=== PATIENT | female | born 1960 | race Caucasian/White ===

== ENCOUNTER → 2017-11-30 | Outpatient (CLI) | payer OTHER ==
--- NOTE | 2017-12-01 08:17 | CT ---
EXAMINATION TYPE: CT ChestAbdPelvis w con DATE OF EXAM: 11/30/2017 COMPARISON: CT abdomen pelvis November 16, 2014. HISTORY: Abnormal weight loss, nausea and constipation x3-[address] years[address] per order. [address] DLP: 407 mGycm. Automated Exposure Control for Dose Reduction was Utilized. CONTRAST: CT abdomen and pelvis is performed with oral but without IV contrast. CT scan of the thorax, abdomen and pelvis is then performed with oral and with IV Contrast, patient injected with 92ml mL of Isovue 300. FINDINGS: LUNGS: Moderate underlying emphysematous change is felt present. No suspicious parenchymal nodule or mass is identified. No worrisome consolidation is seen. Tracheobronchial tree is patent. No pleural e ffusion or pneumothorax is noted. MEDIASTINUM: There are no greater than 1 cm hilar or mediastinal lymph nodes. No cardiomegaly or pe ricardial effusion is seen. Coronary artery calcification is seen which is noted marker for coronary artery disease. There is fairly moderate eccentric plaque along course of descending aorta predomina ntly noncalcified. Suspected recess fluid anterior to origin of main pulmonary artery near axial imag e 26. OTHER: Dense fibroglandular tissue is noted in both breasts. LIVER/GB: No significant abnormality is appreciated. PANCREAS: No significant abnormality is seen. SPLEEN: No significant abnormality is seen. ADRENALS: Left adrenal gland is not well visualized but is not significantly changed from 2015 CT. KIDNEYS: Noncontrast images show central 3 mm calcification axial image 32 could reflect calculus fav or vascular etiology due to central position. There is symmetric cortical medullary uptake and excret ion from both kidneys without evidence of hydronephrosis bilaterally. BOWEL: The oral contrast reaches level of cecum. Patient has very little intra-abdominal fat making e valuation suboptimal. There is no suspicious small or large bowel dilatation. There is some eccentric soft tissue thickening distal rectum into anus seen best coronal image 47. Direct visualization advi sed to rule out mass or neoplasm at this level. The amount of fecal material is somewhat prominent in the colon. GENITAL ORGANS: Uterus is surgically absent or markedly atrophic in appearance. LYMPH NODES: No greater than 1cm abdominal or pelvic lymph nodes are appreciated. OSSEOUS STRUCTURES: Vacuum disc phenomenon L5-S1 level is present. Scoliosis in the thoracic spine is seen. There is moderate joint space loss and spurring in both hips. OTHER: There is fairly moderate plaque of the abdominal aorta extending into branch vessels where mod erate to severe plaque is seen involving iliac branch vessels. Significant stenosis is difficult to e xclude into both lower extremities. Correlate clinically. IMPRESSION: 1. Stable 3 mm calcified focus medially left kidney favored vascular. No new nephrolithiasis. No sig nificant finding seen to account for patient's symptoms of hematuria. 2. Overall nonobstructive bowel gas pattern. There is mild to moderate diffuse colonic fecal stasis n oted. Cannot exclude distal rectal mass. Correlation clinically with digital rectal exam advised. 3. Fairly severe plaque in the proximal external iliac arteries bilaterally. Significant stenosis can not be excluded. Correlate clinically for lower extremity peripheral arterial disease symptoms. 4. Moderate emphysematous change without suspicious acute pulmonary process.
--- NOTE | 2017-12-01 08:18 | CT ---
Please see same day CT CAP for complete details on this study.
== END ==
LOC: RADCTMAIN 16:57
PROVIDERS: ATTEND Internal Medicine
DX: R31.9 Hematuria, unspecified (principal); R63.4 Abnormal weight loss
CPT/HCPCS: 71260; 74176; 74177; Q9967

== ENCOUNTER 2018-08-11 17:26 | Inpatient (IN) | payer OTHER ==
[2018-08-11] MEDS ORDERED: HEPARIN SODIUM,PORCINE 5,000 UNIT/ML 1 ML VIAL IV PRN (17:55)
[2018-08-11] MEDS ORDERED: NALOXONE 0.4 MG/ML 1 ML VIAL IV PRN (17:56)
--- NOTE | 2018-08-11 17:56 | ED ---
General Adult HPI - General Chief complaint: Chest Pain Stated complaint: stemi Source: patient, EMS Mode of arrival: EMS Limitations: no limitations - History of Present Illness Initial comments: Dictation was produced using [employer] dictation software. please excuse any grammatical, word or spelling errors. Chief Complaint: 56-year-old female transferred from [facility] for elevated troponin concerns for ST segment elevation GA. History of Present Illness: Patient is a 57-year-old female she is a past medical history of hep C, chronic back pain and hypertension. Patient has been having 2-3 days of nausea and vomiting. She also had an episode of left scapular pain yesterday. She was seen at [facility]. She was diagnosed with UTI sepsis. During her workup patient had a troponin that was elevated to 24, white count of 20 V acidosis or 4 and some EKG findings. While at [facility] cardiology was contacted and requested patient be transferred to our facility. Patient was given antibiotics, started on heparin and given aspirin. Currently patient has no complaints at this time she states she feels a lot better after being seen at [facility] and given fluids. She denies chest pain or shoulder pain at this time. The ROS documented in this emergency department record has been reviewed and confirmed by me. Those systems with pertinent positive or negative responses have been documented in the HPI. All other systems are other negative and/or noncontributory. PHYSICAL EXAM: General Impression: Alert and oriented x3, not in acute distress, pale HEENT: Normocephalic atraumatic, extra-ocular movements intact, pupils equal and reactive to light bilaterally, dry mucous membranes Cardiovascular: Heart regular rate and rhythm, S1&S2 audible, no murmurs, rubs or gallops Chest: Lungs clear to auscultation bilaterally, no rhonchi, no wheeze, no rales Abdomen: Bowel sounds present, abdomen soft, non-tender, non-distended, no organomegaly Musculoskeletal: Pulses present and equal in all extremities, no peripheral edema Motor: no focal deficits noted Neurological: CN II-XII grossly intact, no focal motor or sensory deficits noted Skin: Intact with no visualized rashes Psych: Normal affect and mood ED course: 57-year-old female transferred for concerns of major adverse cardiac event. He knows with UTI sepsis. She was transferred here for elevated troponin and EKG changes. All signs upon arrival are within acceptable limits. Patient is otherwise well-appearing. Patient denies any ACS-type symptoms. EKG was performed immediately upon arrival. There was findings to suggest ST segment elevation GA with elevated ST segments in V2 V3 with T-wave inversions in the high lateral leads. These appear to be new compared to previous EKG. Patient case and EKG was discussed immediately with Dr. Brody who received signout from Dr. Farris of cardiology who spoke with the initial ER doctor from [facility].. He stated that given that patient is asymptomatic at this time no plans for emergent cardiac catheterization. He requested that code STEMI not be activated at this time.. They do however requested patient be disposition to the intensive care unit. Discussed patient case with Dr. Loyola who is willing to accept patient to intensive care unit. Patient be admitted to Dr. Cuba. Heparin continued. Patient had received aspirin from transferring facility. pending repeat troponin EKG interpretation: Ventricular rate 82, normal sinus rhythm, DE interval 126, QS 86, QTC 481. No DE prolongation, no QTC prolongation. T-wave inversions in the high lateral leads. ST segment elevation in V2 V3, T-wave inversions in lateral precordial leads V5 and 6 - Related Data Home Medications Medication Instructions Recorded Confirmed Hydrochlorothiazide [Hydrodiuril] 50 mg PO DAILY 01/23/14 01/09/15 Metoprolol Tartrate [Lopressor] 25 mg PO DAILY 01/23/14 01/09/15 Albuterol(Unknown Dose) 2 INHALATION BID PRN 01/05/15 01/09/15 Atorvastatin [Lipitor] 10 mg PO MOWEFR 01/05/15 01/09/15 Cholecalciferol [Vitamin D3] 2,000 units PO BID 01/05/15 01/09/15 Oxymetazoline 0.05% Nasl [place] 1 spray INHALATION Q12H 01/05/15 01/09/15 [Afrin 0.05% Nasal [place]] Prochlorperazine [Compazine] 10 mg PO Q8HR PRN 01/05/15 01/09/15 Allergies Allergy/AdvReac Type Severity Reaction Status Date / Time No Known Allergies Allergy Verified 08/11/18 18:00 Review of Systems ROS Statement: Those systems with pertinent positive or pertinent negative responses have been documented in the HPI. ROS Other: All systems not noted in ROS Statement are negative. Past Medical History Past Medical History: Hypertension Additional Past Medical History / Comment(s): Hepatitis C, chronic back pain History of Any Multi-Drug Resistant Organisms: None Reported Past Surgical History: Hysterectomy, Tonsillectomy Additional Past Surgical History / Comment(s): liver biopsy Past Anesthesia/Blood Transfusion Reactions: No Reported Reaction Past Psychological History: No Psychological Hx Reported Smoking Status: Current every day smoker - Past Family History Father Family Medical History: Deep Vein Thrombosis (DVT) General Exam Limitations: no limitations Course Vital Signs 08/11/18 17:29 Temperature 98.7 F Pulse Rate 78 Respiratory 16 Rate Blood Pressure 119/88 O2 Sat by Pulse 97 Oximetry Disposition Clinical Impression: Sepsis secondary to UTI, Elevated troponin, EKG abnormalities Disposition: ADMITTED IP TO THIS HOSP Condition: Critical Referrals: Balaji Mitchell MD [Primary Care Provider] - 1-2 days Decision Time: 18:19
[2018-08-11] MEDS ORDERED: SODIUM CHLORIDE 0.9% 1,000 ML IV SCH ×2 (18:00→20:15)
[2018-08-11] MEDS: HEPARIN SOD,PORK IN 0.45% NACL 25,000 UNIT in 0.45% NACL 1 250ML.BAG IV SCH (18:24)
[2018-08-11] MEDS ORDERED: MAGNESIUM SULFATE-D5W PMX 1 GM in DEXTROSE/WATER 1 100ML.BAG IVPB ONE (18:36)
[2018-08-11] MEDS ORDERED: ATORVASTATIN 80 MG TAB PO STA (18:37)
[2018-08-11] MEDS ORDERED: ASPIRIN 325 MG TAB PO STA (18:37)
--- NOTE | 2018-08-11 18:50 | P.CRDCN ---
History of Present Illness History of present illness: This is Dr. Brody dictating a consult on this patient The patient was interviewed and examined by me Patient transferred from [facility] did initially Dr. Farris was notified who called me. Later was called by the ER physician from [facility] The patient's name in the [facility] records state Ana Laura Chong IMPRESSION / ASSESSMENT: Twelve-lead ECG and symptoms consistent with anterior lateral large myocardial injury, delayed presentation of greater than 24 hours Abnormal troponins with a downward trend, 24 followed by 17 Hypertension History of hepatitis C Past history of alcohol use but stopped drinking completely Current smoker Elevated white count possibly UTI PLAN: Aspirin atorvastatin IV magnesium I discussed this with Dr. Cowan it appears that she may have had a subacute myocardial infarction that began yesterday Coronary angiography today and further management accordingly Discussed with the patient and her family HPI Patient presented to the emergency room at [facility]. The ER physician there spoke to Dr. Farris and informed him of an abnormal troponin and abnormal ECG with ST elevation Patient was transferred to [facility] I was called by the ER physician here and she arrived Upon direct questioning the patient has not been feeling well since yesterday. Around 1:00 yesterday afternoon she started experiencing nausea and discomfort which is epigastric in nature and then felt very very weak The weakness was progressive and therefore she came in to the hospital Her urine smelled really bad She did have some fever but no chills She completely denied any chest discomfort she had epigastric symptoms that started yesterday ROS: + fever , no chills or rigors, no cough, phlegm or expectoration, no nausea, vomiting or diarrhea, no hematuria, + dysuria, no musculoskeletal complaints, no strokes or seizures, no skin lesions. EXAMINATION: Blood pressure 123/92 mmHg pulse rate in the 70s afebrile Breath sounds are clear no rhonchi no crackles Heart sounds. Normal no murmurs or gallops or rub Extremities warm no edema Patient emaciated Afebrile at this time REVIEW OF LABS, ECG & MEDICAL DATA Twelve-lead ECG from [facility] show sinus mechanism normal ID left anterior fascicular block and ST elevation in V1 through V4, ST elevation with T-wave inversions V5 and V6 lead 1 and aVL T-wave inversions in V5 Elevated troponin at [facility] of about 24 Repeat troponin 17 here in this hospital Magnesium 1.4 White count 20,000 Past Medical History Past Medical History: Hypertension Additional Past Medical History / Comment(s): Hepatitis C, chronic back pain History of Any Multi-Drug Resistant Organisms: None Reported Past Surgical History: Hysterectomy, Tonsillectomy Additional Past Surgical History / Comment(s): liver biopsy Past Anesthesia/Blood Transfusion Reactions: No Reported Reaction Past Psychological History: No Psychological Hx Reported Smoking Status: Current every day smoker - Past Family History Father Family Medical History: Deep Vein Thrombosis (DVT) Medications and Allergies Home Medications Medication Instructions Recorded Confirmed Type Gabapentin [Neurontin] 300 mg PO TID 08/11/18 08/11/18 History Sertraline [Zoloft] 100 mg PO DAILY 08/11/18 08/11/18 History oxyCODONE-APAP 10-325MG [Percocet 1 tab PO QID 08/11/18 08/11/18 History 10-325 mg] Allergies Allergy/AdvReac Type Severity Reaction Status Date / Time No Known Allergies Allergy Verified 08/11/18 18:00 Physical Exam Vitals: Vital Signs Temp Pulse Resp BP Pulse Ox 08/11/18 18:46 98.9 F 81 16 115/84 98 08/11/18 18:00 80 15 123/92 97 08/11/18 17:29 98.7 F 78 16 119/88 97 Intake and Output 08/11/18 08/11/18 08/11/18 06:59 14:59 22:59 Other: Weight 38.555 kg Results Cardiac Enzymes 08/11/18 Range/Units 17:50 Troponin I 17.200 H* (0.000-0.034) ng/mL Current Medications Generic Name Dose Route Start Last Admin Trade Name Freq PRN Reason Stop Dose Admin Acetaminophen 650 mg 08/11/18 17:56 Tylenol Tab PO Q4HR PRN Fever and/or Mild Pain Heparin Sodium (Porcine) 0 unit 08/11/18 17:55 Heparin IV PER PROTOCOL PRN Low PTT Protocol Heparin Sodium/Sodium Chloride 250 mls @ 4.627 mls/hr 08/11/18 18:00 08/11/18 18:24 25,000 unit/ Sodium Chloride IV 12 units/kg/hr .Q24H ELISE 4.627 mls/hr Administration Protocol 12 UNITS/KG/HR Sodium Chloride 1,000 mls @ 100 mls/hr 08/11/18 18:00 08/11/18 18:24 Saline 0.9% IV 100 mls/hr .Q10H LEISE Administration Magnesium Sulfate/Dextrose 1 100 mls @ 100 mls/hr 08/11/18 18:36 08/11/18 18:44 gm/ IV Solution IVPB 08/11/18 19:35 100 mls/hr ONCE ONE Administration Naloxone HCl 0.2 mg 08/11/18 17:56 Narcan IV Q2M PRN Opioid Reversal Pantoprazole Sodium 40 mg 08/12/18 09:00 Protonix IV DAILY ELISE Intake and Output 08/11/18 08/11/18 08/11/18 06:59 14:59 22:59 Other: Weight 38.555 kg Patient Weight 08/12/18 06:59 Weight 38.555 kg
[2018-08-11] MEDS ORDERED: LIDOCAINE 1% INJ 10MG/ML (20 ML MDV) ONE (19:05)
[2018-08-11] MEDS ORDERED: fentaNYL (PF) 50 MCG/ML 2 ML AMP ONE (19:27)
[2018-08-11] MEDS ORDERED: fentaNYL (PF) 50 MCG/ML 2 ML AMP IV ONE (19:30)
[2018-08-11] MEDS: MIDAZOLAM (PF) 2 MG/2 ML VIAL IV ONE ×2 (19:33→19:36)
[2018-08-11] MEDS ORDERED: LIDOCAINE 1% INJ 10MG/ML (20 ML MDV) SQ ONE (19:33)
[2018-08-11] MEDS ORDERED: IV FLUID CONTINUATION 800 ML IV ONE (19:37)
[2018-08-11] MEDS ORDERED: BIVALIRUDIN IV ONE (19:47)
[2018-08-11] MEDS ORDERED: BIVALIRUDIN BOLUS 250 MG/50 ML IV ONE (19:47)
[2018-08-11] MEDS ORDERED: SODIUM CHLORIDE 0.9% IV ONE (19:47)
[2018-08-11] MEDS ORDERED: HYDROmorphone 2 MG/ML 1 ML SYRINGE IV ONE (19:47)
[2018-08-11] MEDS ORDERED: niCARdipine 25 MG/10 ML VIAL ONE (19:49)
[2018-08-11] MEDS ORDERED: NITROGLYCERIN 1000MCG/10ML SYRINGE INTRACORON ONE (19:51)
[2018-08-11] MEDS ORDERED: ONDANSETRON 4 MG/2 ML VIAL ONE (19:53)
[2018-08-11] MEDS ORDERED: CLOPIDOGREL 75 MG TAB ONE (19:53)
[2018-08-11] MEDS ORDERED: CLOPIDOGREL 75 MG TAB PO ONE (19:57)
[2018-08-11] MEDS ORDERED: IOPAMIDOL-370 100ML BTL INJ ONE (19:58)
[2018-08-11] MEDS ORDERED: NITROGLYCERIN SL TABS 0.4 MG TAB SUBLINGUAL PRN (20:07)
[2018-08-11] MEDS ORDERED: ATROPINE SULFATE 0.1 MG/ML 10ML SYRINGE IV PRN (20:07)
[2018-08-11] MEDS ORDERED: RX INFO: IV CONTRAST WAS GIVEN 1 EACH MISC MISCELLANE PRN (20:07)
[2018-08-11] MEDS ORDERED: MAG HYDROX/AL HYDROX/SIMETH 30 ML CUP PO PRN (20:07)
--- NOTE | 2018-08-11 20:38 | LTR ---
DATE OF SERVICE: August 11, [address] Mitchell: Ms. Ana Laura Morgan was admitted to [facility] with acute non ST elevation myocardial infarction and underwent a heart catheterization and was found to have critical disease involving the right coronary artery which was opened and stented with good angiographic results. Thank you for allowing us to participate in her care and please do not hesitate to call if you have any questions or concerns. Sincerely, LELIA / ELANAN: [phone] /
--- NOTE | 2018-08-11 20:44 | CC ---
CARDIAC CATHETERIZATION REPORT DATE OF SERVICE: August 11, 2018 PERFORMING PHYSICIAN: Luciano Beck MD, social work assistant. PROCEDURE PERFORMED: 1. Selective right and left coronary angiogram. 2. Left heart catheterization. 3. Successful stenting of the mid right coronary artery using 2.75 x 28 mm Xience drug- eluting stent with an excellent angiographic results and reduction of stenosis from 99% to 0%. INDICATION: This is a 57-year-old female patient who is a smoker who presented initially to [facility] with chest discomfort. She was found to have abnormal troponin. Subsequently, she was transferred to [facility] Emergency Room where she was seen and evaluated by Dr. Brody who recommended proceeding with coronary angiogram on the patient. APPROACH: Right common femoral artery. COMPLICATION: None. LEVEL OF SEDATION: Moderate with sedation length of 29 minutes. PROCEDURE DESCRIPTION: After obtaining an informed consent, the patient was brought to cardiac labeling specialist. The right common femoral artery was cannulated using micropuncture technique and a micropuncture wire passed easily. Then I placed a 6-Turkmen sheath in the right common femoral artery. After that I did selective right and left coronary angiogram using JR 35 and JL3.5 catheters. After that I did intervene in the coronary artery. Please see a separate paragraph for that. Then I did left heart catheterization using 6-Turkmen pigtail catheter. The procedure was completed without any complication. SELECTIVE CORONARY ANGIOGRAM: 1. The right coronary artery is a medium caliber vessel. It is a dominant vessel. The mid RCA has a long tubular lesion appeared to be in the range of 99%. This is with a plaque rupture and thrombus formation. The distal RCA appeared to have diffuse intermediate disease. 2. The left main is a long left main, appeared to be angiographically normal. It bifurcates into left circumflex and left anterior descending artery. 3. The left circumflex is a large caliber vessel. It is a nondominant vessel. The proximal circumflex appeared to be normal and gives rise into the first OM branch which seems to be normal. The mid circumflex appeared to have a lesion in the range of 70%. This is involving OM 2. But the OM2 becomes small to medium caliber vessel. 4. The LAD: The proximal LAD shows appeared to have mild disease only. The mid LAD appeared to have mild disease only as well and gives rise into first diagonal branch which seems to have seems to have mild disease only. The LAD distally appeared to have mild disease only as well. 5. HEMODYNAMICS: The left ventricular end-diastolic pressure was 20 mmHg without significant gradient across the aortic valve. PCI OF THE RCA: Anticoagulation was initiated using Angiomax. Subsequently I did engage the right coronary artery using JR 3.5 guide. The RCA was wired using a whisper wire at the wire was positioned in the PDA branch of the RCA. After that I did balloon angioplasty using 2.5 x 12 mm balloon before I deployed 2.75 x 28 mm Xience drug-eluting stent where the stent was positioned under fluoroscopy guidance and deployed under its nominal pressure. The following angiogram showed good angiographic results and the procedure was completed without any complication. CONCLUSION: 1. Critical disease involving the mid RCA secondary to plaque rupture and thrombus formation. 2. Severe disease involving OM2 of left circumflex. The OM2 is a medium caliber vessel only and seems to be smaller than 2 mm. 3. Mild disease involving the left anterior descending artery. 4. Severe peripheral arterial disease. POSTPROCEDURE MANAGEMENT: 1. Dual anti-platelet therapy. 2. Risk factor modifications. 3. An echocardiogram with Doppler. 4. Smoking cessation. 5. Follow up with the patient. MMODL / IJN: [id number] /
[2018-08-11] MEDS: ACETAMINOPHEN TAB 325 MG TAB PO PRN (22:05)
[2018-08-11] MEDS: ATORVASTATIN 80 MG TAB PO SCH (22:26)
[2018-08-11] MEDS: NICOTINE 21MG/24HR PATCH TRANSDERM SCH (22:26)
[2018-08-11] MEDS: METOPROLOL TARTRATE 25 MG TAB PO SCH (22:27)
[2018-08-11] MEDS: GABAPENTIN 300 MG CAP PO SCH (22:27)
[2018-08-11] MEDS: oxyCODONE-APAP 10-325MG 1 EACH TAB PO SCH (22:27)
[2018-08-12] MEDS: ZOLPIDEM 5 MG TAB PO PRN ×2 (00:09→21:06)
[2018-08-12] MEDS: ACETAMINOPHEN TAB 325 MG TAB PO PRN (05:30)
[2018-08-12] MEDS: SERTRALINE 100 MG TAB PO SCH (08:47)
[2018-08-12] MEDS: oxyCODONE-APAP 10-325MG 1 EACH TAB PO SCH ×4 (08:47→21:06)
[2018-08-12] MEDS: GABAPENTIN 300 MG CAP PO SCH ×3 (08:47→21:06)
[2018-08-12] MEDS: ASPIRIN 325 MG TAB PO SCH (08:47)
[2018-08-12] MEDS: METOPROLOL TARTRATE 25 MG TAB PO SCH ×2 (08:47→21:06)
[2018-08-12] MEDS: NICOTINE 21MG/24HR PATCH TRANSDERM SCH (08:47)
[2018-08-12] MEDS ORDERED: PANTOPRAZOLE 40 MG/10 ML VIAL IV SCH (09:00)
--- NOTE | 2018-08-12 11:01 | ECHOF ---
Referral Reason:nstemi MEASUREMENTS -------- HEIGHT: 157.5 cm WEIGHT: 38.1 kg BP: IVSd: 1.3 cm (0.6 - 1.1) LVIDd: 3.9 cm (3.9 - 5.3) LVPWd: 1.2 cm (0.6 - 1.1) IVSs: 1.2 cm LVIDs: 3.3 cm LVPWs: 1.3 cm Ao Diam: 3.0 cm (2.0 - 3.7) AV Cusp: 1.5 cm (1.5 - 2.6) LA Diam: 3.7 cm (2.7 - 3.8) MV EXCURSION: 14.967 mm (> 18.000) MV EF SLOPE: 56 mm/s (70 - 150) EPSS: 0.4 cm MV E Ignacio: 0.63 m/s MV DecT: 198 ms MV A Ignacio: 0.65 m/s MV E/A Ratio: 0.96 RAP: 5.00 mmHg RVSP: 26.52 mmHg FINDINGS -------- Sinus rhythm. This was a technically good study. The left ventricular size is normal. There is moderate global hypokinesis of LV . Overall left ve ntricular systolic function is severely impaired with, an EF < 20%. Anterseptal Hypokinesis Later al hypokinesis Septal Hypokinesis [place] Hypokinesis. The right ventricle is normal in size. The left atrial size is normal. The right atrial size is normal. Interatrial and interventricular septum intact. The aortic valve is trileaflet, and appears structurally normal. No aortic stenosis or regurgitation. Mild mitral annular calcification present. Mild mitral regurgitation is present. Mild tricuspid regurgitation present. There is no evidence of pulmonary hypertension. The right v entricular systolic pressure, as measured by Doppler, is 26.52mmHg. There is no pulmonic regurgitation present. The aortic root size is normal. Normal inferior vena cava with normal inspiratory collapse consistent with estimated right atrial pre ssure of 5 mmHg. There is no pericardial effusion. CONCLUSIONS -------- 1. The left ventricular size is normal. 2. There is moderate global hypokinesis of LV . 3. Overall left ventricular systolic function is severely impaired with, an EF < 20%. 4. Anterseptal Hypokinesis 5. Lateral hypokinesis 6. Septal Hypokinesis 7. [place] Hypokinesis. 8. The right ventricle is normal in size. 9. The left atrial size is normal. 10. The right atrial size is normal. 11. Interatrial and interventricular septum intact. 12. The aortic valve is trileaflet, and appears structurally normal. No aortic stenosis or regurgitat ion. 13. Mild mitral annular calcification present. 14. Mild mitral regurgitation is present. 15. Mild tricuspid regurgitation present. 16. There is no evidence of pulmonary hypertension. 17. The right ventricular systolic pressure, as measured by Doppler, is 26.52mmHg. 18. There is no pulmonic regurgitation present. 19. The aortic root size is normal. 20. Normal inferior vena cava with normal inspiratory collapse consistent with estimated right atrial pressure of 5 mmHg. 21. There is no pericardial effusion. CUSTOMER SUCCESS MANAGER: Ashley Moreau RDCS
[2018-08-12 13:44] VITALS: BMI 15.5
[2018-08-12] MEDS: HEPARIN SOD,PORK IN 0.45% NACL 25,000 UNIT in 0.45% NACL 1 250ML.BAG IV SCH (14:19)
--- NOTE | 2018-08-12 15:05 | P.PN ---
Subjective Progress Note Date: 08/12/18 This is a pleasant 57-year-old female who presented to the [facility] mainly with symptoms of nausea and vomiting. She also was very weak. She was experiencing some fever. She apparently was so weak that she was unable to get up out of the bathtub, her significant other had to assist her. An EKG was performed on arrival there which showed some ST-T wave changes in the anterior leads, her troponin came back to be significantly abnormal and for this reason a call was made to cardiology. Patient then was transferred here to [facility] in seen in consultation by Dr. Brody. She was advised to undergo cardiac catheterization. Cardiac catheterization showed significant 99% stenosi s of the right coronary artery, patient underwent subsequent stenting of the right coronary artery. Her EKG performed this morning showed a normal sinus rhythm with significant ST-T wave changes noted in the anterior leads. Echocardiogram with Doppler study was performed which revealed an ejection fraction of less than 20%, anterior septal, lateral, septal, and apical hypokinesia noted, clinical picture is suggestive of possible stress cardiomyopathy on top of the fact that the patient had difficulty in stenosis of the right coronary artery. The patient is also found to have a significant u rinary tract infection with associated sepsis. Blood pressure this morning 91/60 with a heart rate in the 50s, 95% on room air. Troponin this afternoon 17.2. Patient is currently on aspirin 325 mg, Lipitor 80 mg, Plavix 75 mg, metoprolol 25 mg twice a day, if the blood pressure tolerates we will add an RHONDA inhibitor and Aldactone tomorrow. Objective - Vital Signs Vital signs: Vital Signs Temp 98.4 F 08/12/18 11:55 Pulse 57 L 08/12/18 11:55 Resp 16 08/12/18 11:55 BP 91/60 08/12/18 11:55 Pulse Ox 95 08/12/18 11:55 Intake & Output 08/11/18 08/12/18 08/12/18 18:59 06:59 18:59 Intake Total 106 600 Balance 106 600 Weight 38.555 kg 38.5 kg 38.5 kg Intake: IV 106 400 Sodium Chloride 0.9% 1, 400 000 ml @ 75 mls/hr IV . [id number] ELISE Rx#:[id number] Oral 200 Other: # Voids 1 - Exam PHYSICAL EXAMINATION: GENERAL: 87-year-old female in no acute distress at the time of my examination HEENT: Head is atraumatic, normocephalic. Pupils equal, round. Sclera anicteric. Conjunctiva are clear. Mucous membranes of the mouth are moist. Neck is supple. There is no elevated jugular venous pressure.No carotid bruit is heard. HEART EXAMINATION: Heart S1, S2 normal. No murmur or gallop heard. CHEST EXAMINATION: Lungs are clear to auscultation and precussion. No chest wall tenderness is noted on palpation or with deep breathing. ABDOMEN: Soft, nontender. Bowel sounds are heard. No organomegaly noted. EXTREMITIES: 2+ peripheral pulses with no evidence of peripheral edema and no calf tenderness noted. Right groin soft, NEUROLOGIC patient is awake, alert and oriented 3 . . - Labs CBC & Chem 7: 08/12/18 05:40 Labs: Abnormal Lab Results - Last 24 Hours (Table) 08/11/18 Range/Units 17:50 Troponin I 17.200 H* (0.000-0.034) ng/mL Assessment and Plan Plan: Assessment and plan #1 non-ST elevation myocardial infarction, status post angioplasty and stenting of the RCA. EKG shows normal sinus rhythm with anterior lateral ST-T wave changes, echo shows an ejection fraction of 20%, clinical picture suggestive of possible stress cardiomyopathy on top of the fact the patient significant RCA blockage #2 history of hepatitis C #3 hypertension #4 UTI and sepsis #5 hyperlipidemia #6 nicotine dependence #7 marijuana use Plan We will continue current medications. If the blood pressure tolerates we will initiate RHONDA inhibitor and Aldactone. Continue to monitor for 48-72 hours. DNP note has been reviewed, I agree with a documented findings and plan of care. Patient was seen and examined.
--- NOTE | 2018-08-12 16:21 | HP ---
HISTORY AND PHYSICAL DATE OF ADMISSION: August 11, 2018 DATE OF SERVICE: August 12, 2018 PRESENTING COMPLAINT: Not feeling well. HISTORY OF PRESENTING COMPLAINT: This is a pleasant 57-year-old patient of Dr. Balaji Mitchell. Chronic stable medical conditions include hypertension, hepatitis C that was treated, osteoarthritis of multiple joints, chronic low back pain from L5 vertebra missing, COPD. The patient is a smoker. The patient initially presented to [facility]. There was vomiting, weakness, malodorous urine, chills. The patient has found to have infected appearing urine. The patient is also found to have ST-elevation in the anterior leads and patient was sent down to [facility]. The patient was complaining of some back pain, between the shoulder blades and the patient had been short of breath and perspiring she stated. The patient was then taken to the cardiac [facility]ing lab[facility] and angioplasty stenting to the RCA was carried out by Dr. Beck. When I saw the patient this afternoon, the patient's symptoms are controlled. Feeling much better. REVIEW OF SYSTEMS: CONSTITUTIONAL: Tired. HEENT None. RESPIRATORY as above. CARDIOVASCULAR as above. GASTROINTESTINAL as above. GENITOURINARY none. MUSCULOSKELETAL: Arthritic pain in many joints. DERMATOLOGICAL, HEMATOLOGIC, LYMPHATIC: none. PSYCHIATRY none. NEUROLOGICAL none. PAST MEDICAL HISTORY: Hypertension, hepatitis C that was treated, back pain from L5 vertebra missing, COPD. PAST SURGICAL HISTORY: Hysterectomy, tonsillectomy and liver biopsy. SOCIAL HISTORY: Smokes a pack a day for many years. Lives with a boyfriend. Alcohol rarely. FAMILY HISTORY: DVT. HOME MEDICATIONS: 1. Percocet 10 1 tab q.i.d. 2. Zoloft 100 mg p.o. daily. 3. Neurontin 300 mg t.i.d. ALLERGIES: None. PHYSICAL EXAMINATION: VITAL SIGNS: Vital signs on presentation, temperature 98.7, pulse 72, respiration 16, blood pressure 109/88, pulse ox 97% on room air. GENERAL APPEARANCE: Thin built. BMI 15.5. Loss of muscle mass. EYES: Pupils are equal. Conjunctivae normal. HEENT: External appearance of nose and ears normal. Oral cavity normal. NECK: JVD not raised. Mass not palpable. RESPIRATORY: Effort increased. LUNGS: Diminished breath sounds. Prolonged wheezing. CARDIOVASCULAR: First and second sounds normal. No edema. ABDOMEN: Soft, nontender. Liver and spleen not palpable. LYMPHATICS: No lymph nodes palpable in the neck and axilla. PSYCHIATRY: Alert and oriented x3. Mood is slightly anxious-appearing. NEUROLOGICAL: Pupils equal. Cranial nerves grossly intact. Power and sensation grossly intact. MUSCULOSKELETAL: Evidence of osteoarthritis especially hands and knees. INVESTIGATIONS: EKG from [facility] shows ST elevation in the anterior leads and subsequent showed flipped T-waves. Troponin was 24. Troponin here 17.2, BUN is 14, creatinine 1.3, potassium 3.4. White count was 20.9, hemoglobin 18.1, platelets 292,000. AST 86, ALT 21, albumin 3.6. These labs are from [facility]. ASSESSMENT: 1. Acute ST-elevation myocardial infarction of more than more than 24 hours duration. Symptoms started apparently like 2 days ago. 2. Chronic obstructive pulmonary disease in a current smoker. 3. Chronic nicotine dependence, patient is a cigarette smoker. 4. Essential hypertension. 5. Primary osteoarthritis multiple joints. 6. Acute urinary tract infection with cystitis. PLAN: Patient is status post intervention of the RCA. Currently, she is on aspirin, Lipitor, Plavix. We will start the patient on IV ceftriaxone. Send off a UA. The patient already has a nicotine patch. Repeat labs. Follow with Cardiology. Copy to Dr. Balaji Mitchell. MMRAMÓNL / ELANAN: [id number] /
[2018-08-12] MEDS: ATORVASTATIN 80 MG TAB PO SCH (21:07)
[2018-08-12] MEDS: CLOPIDOGREL 75 MG TAB PO SCH (21:07)
[2018-08-13 00:57] VITALS: RESP 18
[2018-08-13] MEDS: PANTOPRAZOLE 40 MG TABLET PO SCH (05:33)
[2018-08-13 07:06] LABS: Basophils % (A) 1 %; Eosinophils # (A) 0.4 k/uL (0-0.7); Eosinophils % (A) 4 %; HCT 39.4 % (34.0-46.0); HGB 12.8 gm/dL (11.4-16.0); Lymphocytes # (A) 2.4 k/uL (1.0-4.8); Lymphocytes % (A) 25 %; MCH 29.5 pg (25.0-35.0); MCHC 32.5 g/dL (31.0-37.0); MCV 90.8 fL (80.0-100.0); Mean Platelet Volume 7.1; Monocytes # (A) 0.5 k/uL (0-1.0); Monocytes % (A) 6 %; Neutrophils % (A) 64 %; Platelet Count 223 k/uL (150-450); RBC 4.34 m/uL (3.80-5.40); RDW 14.1 % (11.5-15.5); WBC 9.5 k/uL (3.8-10.6)
[2018-08-13 07:16] LABS: ALT 20 U/L (9-52); AST 27 U/L (14-36); Alkaline Phosphatase 41 U/L (38-126); Anion Gap 2 mmol/L; Blood Urea Nitrogen 13 mg/dL (7-17); Calcium 8.7 mg/dL (8.4-10.2); Carbon Dioxide 30 mmol/L (22-30); Chloride 106 mmol/L (98-107); Glucose 86 mg/dL (74-99); Potassium 4.2 mmol/L (3.5-5.1); Sodium 138 mmol/L (137-145); Total Bilirubin 0.2 mg/dL (0.2-1.3)
[2018-08-13] MEDS: SERTRALINE 100 MG TAB PO SCH (09:02)
[2018-08-13] MEDS: CLOPIDOGREL 75 MG TAB PO SCH (09:02)
[2018-08-13] MEDS: ASPIRIN 325 MG TAB PO SCH (09:02)
[2018-08-13] MEDS: GABAPENTIN 300 MG CAP PO SCH ×3 (09:02→21:15)
[2018-08-13] MEDS: oxyCODONE-APAP 10-325MG 1 EACH TAB PO SCH ×4 (09:03→21:15)
[2018-08-13] MEDS: METOPROLOL TARTRATE 25 MG TAB PO SCH ×2 (09:03→21:16)
[2018-08-13] MEDS: NICOTINE 21MG/24HR PATCH TRANSDERM SCH (09:03)
[2018-08-13] MEDS ORDERED: LISINOPRIL 5 MG TAB PO SCH (11:15)
--- NOTE | 2018-08-13 11:59 | PN ---
PROGRESS NOTE Ana Laura is a 57-year-old lady who was admitted to hospital with myocardial infarction, underwent cardiac catheterization and angioplasty of coquille right coronary artery. She is doing well clinically and is free of symptoms. An echocardiogram showed severe LV dysfunction with an ejection fraction of 20%. Labs show a hemoglobin of 12.8, creatinine is 0.8, potassium is 4.2. Patient is currently on aspirin, Lipitor, Plavix, Lopressor 25 b.i.d. PHYSICAL EXAM: Comfortable at rest. Vital signs are stable. There is no jugular venous distention. Carotid upstroke is normal. There is no bruit. Chest exam reveals good air entry bilaterally. Heart exam reveals first and second heart sounds. No gallop. Exam of extremities did not reveal edema. Peripheral pulses are felt. ASSESSMENT: 1. Coronary artery disease, status post inferior wall myocardial infarction. 2. Ischemic cardiomyopathy with severe LV dysfunction. Her LV systolic dysfunction is consistent more with a takotsubo syndrome but will treat her with aggressive medical therapy. I will add an RHONDA inhibitor to what she is on. Hopefully home tomorrow. MMODL / IJN: [id number] /
[2018-08-13 16:24] LABS: Amorphous Sediment,Urine Rare /hpf; Appearance,Urine Clear (Clear); Bilirubin,Urine Negative (Negative); Blood,Urine Trace (Negative); Color,Urine Light Yellow; Glucose,Urine (UA) Negative (Negative); Ketones,Urine Negative (Negative); Leukocyte Esterase,Urine Negative (Negative); Nitrite,Urine Negative (Negative); PH, Urine 6.5 (5.0-8.0); Protein,Urine Trace (Negative); RBC,Urine 3 /hpf (0-5); Specific Gravity,Urine 1.009 (1.001-1.035); Squamous Epithelial Cell,Urine 1 /hpf (0-4); Urobilinogen,Urine <2.0 mg/dL (<2.0)
--- NOTE | 2018-08-13 16:26 | PN ---
PROGRESS NOTE DATE OF SERVICE: 08/13/2018 PRESENTING COMPLAINT: Acute SD. INTERVAL HISTORY: This patient presented with acute ST-elevation myocardial infarction. Also there is some view about takotsubo syndrome. She had successful angioplasty and stenting. Patient's appetite is picking up. Breathing is stable. Just feels a little bit tired. Has family visiting her. Has been out of bed, walking. REVIEW OF SYSTEMS: Done for constitutional, cardiovascular, GI, pulmonary; relevant findings as above. CURRENT MEDICATIONS: Reviewed. PHYSICAL EXAMINATION: Temperature 97.5, pulse 69, respiration 18, blood pressure 119/62, pulse ox 95% on room air. GENERAL APPEARANCE: Sitting up. Awake. EYES: Pupils equal. Conjunctivae normal. NECK: JVD not raised. Mass not palpable. RESPIRATORY: Effort normal. LUNGS: Diminished breath sounds. Prolonged expiration. CARDIOVASCULAR: First and second sounds normal. No edema. ABDOMEN: Soft, non-tender. Liver and spleen not palpable. PSYCHIATRY: Alert and oriented x3. Mood and affect normal. INVESTIGATIONS: White count 9.5, hemoglobin 12.8. Potassium 4.2. BUN and creatinine normal. ASSESSMENT: 1. Acute ST-elevation myocardial infarction of more than 24 hours' duration upon presentation. 2. Chronic obstructive pulmonary disease in a current smoker. 3. Chronic nicotine dependence. Patient is a cigarette smoker. 4. Essential hypertension. 5. Primary osteoarthritis in multiple joints. 6. Acute urinary tract infection with cystitis. UA was ordered yesterday. 7. Ischemic cardiomyopathy with ejection fraction of less than 20%. PLAN: Continue current medication and treatment plan. The patient is on aspirin, Lipitor, IV ceftriaxone, Plavix, Zestril, Zoloft. Care was discussed with the patient. Will add a small dose of Aldactone. Follow with Cardiology. MMODL / IJN: [id number] /
[2018-08-13] MEDS: ATORVASTATIN 80 MG TAB PO SCH (21:15)
[2018-08-14] MEDS: ZOLPIDEM 5 MG TAB PO PRN (02:13)
[2018-08-14] MEDS: PANTOPRAZOLE 40 MG TABLET PO SCH (06:01)
[2018-08-14] MEDS: ASPIRIN 325 MG TAB PO SCH (08:43)
[2018-08-14] MEDS: CLOPIDOGREL 75 MG TAB PO SCH (08:43)
[2018-08-14] MEDS: GABAPENTIN 300 MG CAP PO SCH (08:43)
[2018-08-14] MEDS: SERTRALINE 100 MG TAB PO SCH (08:44)
[2018-08-14] MEDS: NICOTINE 21MG/24HR PATCH TRANSDERM SCH (08:44)
[2018-08-14] MEDS: oxyCODONE-APAP 10-325MG 1 EACH TAB PO SCH ×2 (08:44→12:26)
[2018-08-14] MEDS: METOPROLOL TARTRATE 25 MG TAB PO SCH (08:44)
[2018-08-14] MEDS ORDERED: SPIRONOLACTONE 25 MG TAB PO SCH (09:00)
[2018-08-14 11:24] VITALS: BP 95/54; PULSE 82; TEMP 98.2
--- NOTE | 2018-08-14 11:25 | P.PN ---
Subjective Progress Note Date: 08/14/18 This is a pleasant 57-year-old female who presented to the [facility] mainly with symptoms of nausea and vomiting. She also was very weak. She was experiencing some fever. She apparently was so weak that she was unable to get up out of the bathtub, her significant other had to assist her. An EKG was performed on arrival there which showed some ST-T wave changes in the anterior leads, her troponin came back to be significantly abnormal and for this reason a call was made to cardiology. Patient then was transferred here to [facility] in seen in consultation by Dr. Brody. She was advised to undergo cardiac catheterization. Cardiac catheterization showed significant 99% stenosi s of the right coronary artery, patient underwent subsequent stenting of the right coronary artery. Her EKG performed this morning showed a normal sinus rhythm with significant ST-T wave changes noted in the anterior leads. Echocardiogram with Doppler study was performed which revealed an ejection fraction of less than 20%, anterior septal, lateral, septal, and apical hypokinesia noted, clinical picture is suggestive of possible stress cardiomyopathy on top of the fact that the patient had difficulty in stenosis of the right coronary artery. The patient is also found to have a significant u rinary tract infection with associated sepsis. Blood pressure this morning 91/60 with a heart rate in the 50s, 95% on room air. Troponin this afternoon 17.2. Patient is currently on aspirin 325 mg, Lipitor 80 mg, Plavix 75 mg, metoprolol 25 mg twice a day, if the blood pressure tolerates we will add an RHONDA inhibitor and Aldactone tomorrow. patient was seen and examined this morning, overall doing well. Hemodynamically stable. Breathing is stable and patient denies any chest discomfort. Objective - Vital Signs Vital signs: Vital Signs Temp 98.3 F 08/14/18 04:00 Pulse 61 08/14/18 08:00 Resp 18 08/14/18 08:00 BP 101/57 08/14/18 08:00 Pulse Ox 94 L 08/14/18 08:00 Intake & Output 08/13/18 08/14/18 08/14/18 18:59 06:59 18:59 Intake Total 830 720 0 Output Total 150 Balance 680 720 0 Weight 47.5 kg Intake: Intake, IV Titration 100 Amount cefTRIAXone 1 gm In 100 Sodium Chloride 0.9% 50 ml @ 100 mls/hr IVPB Q24HR [facility] Rx#:[id number] Oral 730 720 0 Output: Urine 150 Other: # Voids 1 2 0 - Exam PHYSICAL EXAMINATION: GENERAL: 87-year-old female in no acute distress at the time of my examination HEENT: Head is atraumatic, normocephalic. Pupils equal, round. Sclera anicteric. Conjunctiva are clear. Mucous membranes of the mouth are moist. Neck is supple. There is no elevated jugular venous pressure.No carotid bruit is heard. HEART EXAMINATION: Heart S1, S2 normal. No murmur or gallop heard. CHEST EXAMINATION: Lungs are clear to auscultation and precussion. No chest wall tenderness is noted on palpation or with deep breathing. ABDOMEN: Soft, nontender. Bowel sounds are heard. No organomegaly noted. EXTREMITIES: 2+ peripheral pulses with no evidence of peripheral edema and no calf tenderness noted. Right groin soft, NEUROLOGIC patient is awake, alert and oriented 3 . . - Labs CBC & Chem 7: 08/13/18 06:23 08/13/18 06:23 Labs: Abnormal Lab Results - Last 24 Hours (Table) 08/12/18 Range/Units 15:51 Urine Protein Trace H (Negative) Urine Blood Trace H (Negative) Amorphous Sediment Rare H (None) /hpf Assessment and Plan Plan: Assessment and plan #1 non-ST elevation myocardial infarction, status post angioplasty and stenting of the RCA. EKG shows normal sinus rhythm with anterior lateral ST-T wave changes, echo shows an ejection fraction of 20%, clinical picture suggestive of possible stress cardiomyopathy on top of the fact the patient significant RCA blockage #2 history of hepatitis C #3 hypertension #4 UTI and sepsis #5 hyperlipidemia #6 nicotine dependence #7 marijuana use Plan We will continue current medications. patient may be able to be discharged home today from cardiology's perspective, we will make a follow-up appointment with Dr. Brody in the office post discharge. DNP note has been reviewed, I agree with a documented findings and plan of care. Patient was seen and examined.
[2018-08-14] MEDS ORDERED: LISINOPRIL 5 MG TAB PO SCH (21:00)
--- NOTE | 2018-08-14 23:46 | DS ---
DISCHARGE SUMMARY . DATE OF ADMISSION: August 11, 2018 DATE OF DISCHARGE: August 14, 2018. FINAL DIAGNOSES: 1. Acute ST-elevation myocardial infarction about 2 days presenting after about 2 days. 2. Chronic obstructive pulmonary disease in a current smoker. 3. Chronic nicotine dependence. Patient is a cigarette smoker. 4. Essential hypertension. 5. Primary osteoarthritis multiple joints. 6. Ischemic cardiomyopathy EF less than 20%. HOSPITAL COURSE: This patient presented at [facility] where she initially was appearing to be a urine infection, but the patient is found to have ST-elevation myocardial infarction, sent down to [facility]. The patient had angioplasty and stenting carried out by Dr. Beck to the RCA. 2D echocardiogram, EF of less than 20% and multiple wall motion abnormalities. Overall, patient doing much better now. Breathing is better. The patient again counseled against smoking today and questions were answered. CONSULTATION: Dr. Beck from Interventional Cardiology, Dr. Brody from Cardiology. PHYSICAL EXAMINATION: Temperature 98.2, pulse 82, respiration 18, blood pressure 95/54, pulse ox 91 percent on room air. Lungs decreased breath sounds. PSYCH: AO x3. INVESTIGATIONS: UA negative. BUN and creatinine normal. DISCHARGE MEDICATIONS: 1. Neurontin 300 mg p.o. t.i.d. 2. Zoloft 100 mg p.o. daily. 3. Percocet 10 1 tablet p.o. q.i.d. 4. Aspirin 81 mg daily. 5. Lipitor 80 mg q.h.s. 6. Plavix 75 mg p.o. daily. 7. Zestril 5 mg q.h.s. 8. Lopressor 25 mg p.o. b.i.d. 9. Nicotine 21 mg patch daily. 10.Nitrostat 0.4 sublingual q.5 p.r.n. 11.Aldactone 12.5 p.o. daily. FOLLOWUP: Follow up with Dr. Brody in [address] Balaji Mitchell in 3 days. Discussion and discharge planning more than [address] Mitchell. MMGAVIN / ELANAN: [id number] /
[2018-08-15] MEDS ORDERED: ASPIRIN 81 MG PO SCH (09:00)
== END 2018-08-14 15:21 | disposition home or self-care (01) | DRG 246 ==
LOC: EC 17:26 → 2SICU 17:56 → 3SCARD 20:33
PROVIDERS: ADMIT Hospitalist; ATTEND Hospitalist
PROC: B2111ZZ Fluoroscopy of Multiple Coronary Arteries using Low Osmolar Contrast (ICD-10-PCS; 2018-08-11)
PROC: 027034Z Dilation of Coronary Artery, One Artery with Drug-eluting Intraluminal Device, Percutaneous Approach (ICD-10-PCS; principal; 2018-08-11 19:06)
PROC: 4A023N7 Measurement of Cardiac Sampling and Pressure, Left Heart, Percutaneous Approach (ICD-10-PCS; 2018-08-11 19:06)
DX: I21.11 ST elevation (STEMI) myocardial infarction involving right coronary artery (principal); A41.9 Sepsis, unspecified organism; E87.2 Acidosis; N30.00 Acute cystitis without hematuria; I25.5 Ischemic cardiomyopathy; I44.4 Left anterior fascicular block; I73.9 Peripheral vascular disease, unspecified; I25.10 Atherosclerotic heart disease of native coronary artery without angina pectoris; E78.5 Hyperlipidemia, unspecified; I10 Essential (primary) hypertension; J44.9 Chronic obstructive pulmonary disease, unspecified; B19.20 Unspecified viral hepatitis C without hepatic coma; G89.29 Other chronic pain; M19.91 Primary osteoarthritis, unspecified site; M54.5 Low back pain; F17.210 Nicotine dependence, cigarettes, uncomplicated; Z71.6 Tobacco abuse counseling; Z79.899 Other long term (current) drug therapy; Z90.710 Acquired absence of both cervix and uterus; Z98.890 Other specified postprocedural states; Z82.49 Family history of ischemic heart disease and other diseases of the circulatory system
CPT/HCPCS: 36415; 80053; 81001; 82565; 83605; 84484; 85025; 93005; 93306; 93458; 96365; 99285; C1874

== ENCOUNTER 2018-08-17 12:41 | Inpatient (IN) | payer OTHER ==
[2018-08-17] MEDS ORDERED: ASPIRIN 81 MG PO STA (13:22)
[2018-08-17] MEDS ORDERED: NITROGLYCERIN SL TABS 0.4 MG TAB SUBLINGUAL STA (13:22)
[2018-08-17 13:40] LABS: Basophils % (A) 0 %; Eosinophils # (A) 0.6 k/uL (0-0.7); Eosinophils % (A) 6 %; HCT 39.5 % (34.0-46.0); HGB 13.2 gm/dL (11.4-16.0); Lymphocytes # (A) 1.6 k/uL (1.0-4.8); Lymphocytes % (A) 18 %; MCH 30.7 pg (25.0-35.0); MCHC 33.4 g/dL (31.0-37.0); MCV 91.9 fL (80.0-100.0); Mean Platelet Volume 7.2; Monocytes # (A) 0.5 k/uL (0-1.0); Monocytes % (A) 6 %; Neutrophils % (A) 68 %; Platelet Count 235 k/uL (150-450); RDW 13.7 % (11.5-15.5); WBC 8.8 k/uL (3.8-10.6)
[2018-08-17 13:45] LABS: ALT 35 U/L (9-52); AST 24 U/L (14-36); Albumin 3.6 g/dL (3.5-5.0); Alkaline Phosphatase 39 U/L (38-126); Anion Gap 7 mmol/L; Blood Urea Nitrogen 15 mg/dL (7-17); Calcium 9.1 mg/dL (8.4-10.2); Carbon Dioxide 28 mmol/L (22-30); Chloride 104 mmol/L (98-107); Glucose 104 mg/dL (74-99); Magnesium 1.8 mg/dL (1.6-2.3); Potassium 4.6 mmol/L (3.5-5.1); Sodium 139 mmol/L (137-145); Total Bilirubin 0.3 mg/dL (0.2-1.3); Total Protein 5.7 g/dL (6.3-8.2)
[2018-08-17 13:46] LABS: INR 1.1 (<1.2); Partial Thromboplastin Time 23.3 sec (22.0-30.0); Prothrombin Time 11.2 sec (9.0-12.0)
--- NOTE | 2018-08-17 13:59 | ED ---
General Adult HPI - General Chief complaint: Recheck/Abnormal Lab/Rx Stated complaint: chest pain Time Seen by Provider: 08/17/18 13:01 Source: patient, RN notes reviewed, old records reviewed Mode of arrival: ambulatory - History of Present Illness Initial comments: 57-year-old female patient past history of hepatitis C, COPD, presents to ED for left chest pain. Patient was recently seen at this hospital on 08/11 when she was transferred from another facility due to possible UTI sepsis and elevated troponin. Upon evaluation that day patient was determined to have a significant occlusion of her right coronary, angiography was performed. Echocardiogram also displayed a significantly decreased ejection fraction of less than 20%. Patient was discharged on 08/14. Patient returns today with mild chest pain located at the patient's left lateral rib region. Patient stated this pain began last night. He describes as a dull as well as a stabbing pain. Patient reports that she took a nitro prior to presentation to ER and she is currently pain free. Patient denies all other complaints. Patient denies any significant shortness of breath. Denies any fevers chills, nausea vomiting diarrhea, abdominal pain, diaphoresis. Systemic: Pt denies fatigue, myalgia, fever/chills, rash. Pt denies weakness, night sweats, weight loss. Neuro: Pt denies headache, visual disturbances, syncope or pre-syncope. HEENT: Pt denies ocular discharge or irritation, otalgia, rhinorrhea, pharyngitis or notable lymphadenopathy. Cardiopulmonary: Pt denies SOB, heart palpitations, dyspnea on exertion. Abdominal/GI: Pt denies abdominal pain, n/v/d. : Pt denies dysuria, burning w/ urination, frequency/urgency. Denies new onset urinary or bowel incontinence. MSK: Pt denies myalgia, loss of strength or function in extremities. Neuro: Pt denies new onset weakness, paresthesias. - Related Data Home Medications Medication Instructions Recorded Confirmed Gabapentin [Neurontin] 300 mg PO TID 08/11/18 08/17/18 Sertraline [Zoloft] 100 mg PO DAILY 08/11/18 08/17/18 oxyCODONE-APAP 10-325MG [Percocet 1 tab PO QID 08/11/18 08/17/18 10-325 mg] Spironolactone [Aldactone] 12.5 mg PO HS 08/17/18 08/17/18 Previous Rx's Medication Instructions Recorded Aspirin 81 mg PO DAILY chew 08/14/18 Atorvastatin [Lipitor] 80 mg PO HS #30 tab 08/14/18 Clopidogrel [Plavix] 75 mg PO DAILY #303 tab 08/14/18 Lisinopril [Zestril] 5 mg PO HS #30 tab 08/14/18 Metoprolol Tartrate [Lopressor] 25 mg PO BID #603 tab 08/14/18 Nicotine 21Mg/24Hr Patch [Habitrol] 1 patch TRANSDERM DAILY #30 patch 08/14/18 Nitroglycerin Sl Tabs [Nitrostat] 0.4 mg SUBLINGUAL Q5M PRN #25 tab 08/14/18 Allergies Allergy/AdvReac Type Severity Reaction Status Date / Time No Known Allergies Allergy Verified 08/17/18 13:14 Review of Systems ROS Statement: Those systems with pertinent positive or pertinent negative responses have been documented in the HPI. ROS Other: All systems not noted in ROS Statement are negative. Past Medical History Past Medical History: Hypertension Additional Past Medical History / Comment(s): Hepatitis C, chronic back pain Last Myocardial Infarction Date:: 08/11/18 History of Any Multi-Drug Resistant Organisms: None Reported Past Surgical History: Hysterectomy, Tonsillectomy Additional Past Surgical History / Comment(s): liver biopsy Past Anesthesia/Blood Transfusion Reactions: No Reported Reaction Past Psychological History: No Psychological Hx Reported Smoking Status: Current every day smoker Past Alcohol Use History: None Reported Past Drug Use History: None Reported - Past Family History Father Family Medical History: Deep Vein Thrombosis (DVT) General Exam - General Exam Comments Initial Comments: Constitutional: NAD, AOX3, Pt has pleasant affect. HEENT: NC/AT, trachea midline, neck supple, no lymphadenopathy. Posterior pharynx non erythematous, without exudates. External ears appear normal, without discharge. Mucous membranes moist. Eyes PERRLA, EOM intact. There is no scleral icterus. No pallor noted. Cardiopulmonary: RRR, no murmurs, rubs or gallops, no JVD noted. Lungs CTAB in anterior and posterior galvez. No peripheral edema. Abdominal exam: Abdomen soft and non-distended. Abdomen non-tender to palpation in all 4 quadrants. Bowel sounds active in LLQ. No hepatosplenomegaly. No ecchymosis Neuro: CN II-XII grossly intact. No nuchal rigidity. MSK: No posterior calf tenderness bilaterally, homans sign negative bilaterally. Posterior tibialis and radial pulse +2 bilaterally. Sensation intact in upper and lower extremities. Full active ROM in upper and lower extremities, 5/5 stregnth. Course Vital Signs 08/17/18 08/17/18 08/17/18 12:46 13:12 13:30 Temperature 98.3 F Pulse Rate 46 L 45 L Pulse Rate [ 47 L [employer] Operator ] Respiratory 18 18 Rate Blood Pressure 104/69 112/75 O2 Sat by Pulse 95 95 Oximetry 08/17/18 08/17/18 08/17/18 14:00 14:30 15:00 Temperature Pulse Rate 50 L 49 L 46 L Pulse Rate [ [employer] Operator ] Respiratory 18 18 16 Rate Blood Pressure 112/75 112/75 112/75 O2 Sat by Pulse 94 L 96 97 Oximetry 08/17/18 08/17/18 08/17/18 15:30 16:30 17:00 Temperature Pulse Rate 49 L 47 L 48 L Pulse Rate [ [employer] Operator ] Respiratory 18 18 16 Rate Blood Pressure 117/82 99/60 109/74 O2 Sat by Pulse 98 95 94 L Oximetry Medical Decision Making - Medical Decision Making 57-year-old female patient past history of hepatitis C, COPD, presents to ED for left chest pain. Patient was recently seen at this hospital on 08/11 when she was transferred from another facility due to possible UTI sepsis and elevated troponin. Upon evaluation that day patient was determined to have a significant occlusion of her right coronary, angiography was performed. Echocardiogram also displayed a significantly decreased ejection fraction of less than 20%. Patient was discharged on 08/14. Patient returns today with mild chest pain located at the patient's left lateral rib region. Patient stated this pain began last night. He describes as a dull as well as a stabbing pain. Patient reports that she took a nitro prior to presentation to ER and she is currently pain free. Patient denies all other complaints. Patient denies any significant shortness of breath. Denies any fevers chills, nausea vomiting diarrhea, abdominal pain, diaphoresis. Patient's vital signs displayed mild bradycardia, otherwise stable. Physical exam did not display acute pathology. No signs of fluid overload, no JVD, no peripheral edema, heart regular rate and rhythm. Laboratory investigations revealed nonspecific CBC, CMP. Coagulation studies within normal limits. BNP mildly elevated at 3730. Troponin 0.157. Trending down. Chest x-ray displayed no acute process, no heart failure. EKG not concerning for acute ischemia. Patient will be admitted for telemetry and further evaluation of chest pain. Case discussed with Dr. Corona. - Lab Data Result diagrams: 08/17/18 13:11 08/17/18 13:11 Lab Results 08/17/18 08/17/18 08/17/18 Range/Units 13:11 13:11 13:11 WBC 8.8 (3.8-10.6) k/uL RBC 4.30 (3.80-5.40) m/uL Hgb 13.2 (11.4-16.0) gm/dL Hct 39.5 (34.0-46.0) % MCV 91.9 (80.0-100.0) fL MCH 30.7 (25.0-35.0) pg MCHC 33.4 (31.0-37.0) g/dL RDW 13.7 (11.5-15.5) % Plt Count 235 (150-450) k/uL Neutrophils % 68 % Lymphocytes % 18 % Monocytes % 6 % Eosinophils % 6 % Basophils % 0 % Neutrophils # 6.0 (1.3-7.7) k/uL Lymphocytes # 1.6 (1.0-4.8) k/uL Monocytes # 0.5 (0-1.0) k/uL Eosinophils # 0.6 (0-0.7) k/uL Basophils # 0.0 (0-0.2) k/uL PT (9.0-12.0) sec INR (<1.2) APTT (22.0-30.0) sec Sodium 139 (137-145) mmol/L Potassium 4.6 (3.5-5.1) mmol/L Chloride 104 (98-107) mmol/L Carbon Dioxide 28 (22-30) mmol/L Anion Gap 7 mmol/L BUN 15 (7-17) mg/dL Creatinine 0.68 (0.52-1.04) mg/dL Est GFR (CKD-EPI)AfAm >90 (>60 ml/min/1.73 sqM) Est GFR (CKD-EPI)NonAf >90 (>60 ml/min/1.73 sqM) Glucose 104 H (74-99) mg/dL Calcium 9.1 (8.4-10.2) mg/dL Magnesium 1.8 (1.6-2.3) mg/dL Total Bilirubin 0.3 (0.2-1.3) mg/dL AST 24 (14-36) U/L ALT 35 (9-52) U/L Alkaline Phosphatase 39 (38-126) U/L Troponin I (0.000-0.034) ng/mL NT-Pro-B Natriuret Pep 3730 pg/mL Total Protein 5.7 L (6.3-8.2) g/dL Albumin 3.6 (3.5-5.0) g/dL 08/17/18 08/17/18 Range/Units 13:11 13:11 WBC (3.8-10.6) k/uL RBC (3.80-5.40) m/uL Hgb (11.4-16.0) gm/dL Hct (34.0-46.0) % MCV (80.0-100.0) fL MCH (25.0-35.0) pg MCHC (31.0-37.0) g/dL RDW (11.5-15.5) % Plt Count (150-450) k/uL Neutrophils % % Lymphocytes % % Monocytes % % Eosinophils % % Basophils % % Neutrophils # (1.3-7.7) k/uL Lymphocytes # (1.0-4.8) k/uL Monocytes # (0-1.0) k/uL Eosinophils # (0-0.7) k/uL Basophils # (0-0.2) k/uL PT 11.2 (9.0-12.0) sec INR 1.1 (<1.2) APTT 23.3 (22.0-30.0) sec Sodium (137-145) mmol/L Potassium (3.5-5.1) mmol/L Chloride (98-107) mmol/L Carbon Dioxide (22-30) mmol/L Anion Gap mmol/L BUN (7-17) mg/dL Creatinine (0.52-1.04) mg/dL Est GFR (CKD-EPI)AfAm (>60 ml/min/1.73 sqM) Est GFR (CKD-EPI)NonAf (>60 ml/min/1.73 sqM) Glucose (74-99) mg/dL Calcium (8.4-10.2) mg/dL Magnesium (1.6-2.3) mg/dL Total Bilirubin (0.2-1.3) mg/dL AST (14-36) U/L ALT (9-52) U/L Alkaline Phosphatase (38-126) U/L Troponin I 0.157 H* (0.000-0.034) ng/mL NT-Pro-B Natriuret Pep pg/mL Total Protein (6.3-8.2) g/dL Albumin (3.5-5.0) g/dL - EKG Data -: EKG Interpreted by Me (and dr corona) EKG Comments: 1) ventricular rate 40,. And for 132, QRS 88, QT/QTc 450/42. Nonspecific T- wave abnormality. No concern for acute ischemia. 2) ventricular rate 61, LA interval 120, QRS 82, QT/QTC 414/416. Normal sinus rhythm, nonspecific T-wave abnormality. No concern for acute ischemia. Disposition Clinical Impression: Chest pain Disposition: ADMITTED IP TO THIS HOSP Condition: Serious Is patient prescribed a controlled substance at d/c from ED?: No
--- NOTE | 2018-08-17 14:17 | XR ---
EXAMINATION TYPE: XR chest 2V DATE OF EXAM: 08/17/2018 COMPARISON: 01/23/2014 TECHNIQUE: PA and lateral views submitted. HISTORY: Chest pain FINDINGS: The lungs are clear and there is no pneumothorax, pleural effusion, or focal pneumonia. Diffuse hyp erinflation. No overt failure. No compression deformities. No pneumothorax. IMPRESSION: 1. No acute process. Correlate for COPD.
[2018-08-17] MEDS ORDERED: NITROGLYCERIN SL TABS 0.4 MG TAB SUBLINGUAL PRN (14:59)
--- NOTE | 2018-08-17 20:46 | ECHOF ---
Referral Reason:chest pain MEASUREMENTS -------- HEIGHT: 157.5 cm WEIGHT: 43.1 kg BP: RAP: 5.00 mmHg RVSP: 29.21 mmHg FINDINGS -------- Limited Study for LV Function. There is moderate global hypokinesis of LV . Overall left ventricular systolic function is severely impaired with, an EF between 20 - 25 %. There is no pericardial effusion. CONCLUSIONS -------- 1. Limited Study for LV Function. 2. There is moderate global hypokinesis of LV . 3. Overall left ventricular systolic function is severely impaired with, an EF between 20 - 25 %. 4. There is no pericardial effusion. PLATE AND WELD INSPECTOR: Ashley Moreau RDCS
[2018-08-17] MEDS: NICOTINE 21MG/24HR PATCH TRANSDERM SCH (20:48)
[2018-08-17] MEDS: GABAPENTIN 300 MG CAP PO SCH (20:54)
[2018-08-17] MEDS: SPIRONOLACTONE 25 MG TAB PO SCH (20:54)
[2018-08-17] MEDS: METOPROLOL TARTRATE 25 MG TAB PO SCH (20:55)
[2018-08-17] MEDS: ATORVASTATIN 80 MG TAB PO SCH (20:55)
[2018-08-17] MEDS: LISINOPRIL 5 MG TAB PO SCH (20:55)
[2018-08-17] MEDS ORDERED: oxyCODONE-APAP 10-325MG 1 EACH TAB PO SCH (22:00)
--- NOTE | 2018-08-17 23:32 | HP ---
HISTORY AND PHYSICAL DATE OF ADMISSION: August 17, 2018 DATE OF SERVICE: August 17, 2018 PRESENTING COMPLAINT: Chest pain. HISTORY OF PRESENTING COMPLAINT: This is a pleasant 57-year-old patient who was discharged from the hospital on August 14, 2018, had presented on August 11, 2018. Patient follows with Dr. Balaji Mitchell. Chronic stable medical conditions include hypertension, hepatitis C that was treated, osteoarthritis, chronic low back pain from L5 vertebra missing, COPD, had been a smoker up to last week. The patient initially presented to [facility] where she was transferred here with ST-elevation anterior leads and underwent intervention of the RCA. The patient was doing well and discharged. Last night, the patient developed pain in the lateral part of the chest, left chest and at the back and also going down the left arm. The patient was a bit short of breath, perspiring, had some night sweats. Because of the recent presentation, she got concerned and decided to come in and was admitted with a diagnosis of unstable angina. The patient has not smoked since she has left. REVIEW OF SYSTEMS: CONSTITUTIONAL: Tired. HEENT None. RESPIRATORY as above. CARDIOVASCULAR as above. GASTROINTESTINAL occasional heartburn. GENITOURINARY: None. MUSCULOSKELETAL: Pain in many joints. DERMATOLOGICAL, HEMATOLOGIC, LYMPHATIC: none. PSYCHIATRY none. NEUROLOGICAL: None. PAST MEDICAL HISTORY: Hypertension, hepatitis C that was treated, for L5 missing vertebra, COPD, acute ST-elevation myocardial infarction on August 11, 2018. PAST SURGICAL HISTORY: Hysterectomy and tonsillectomy. SOCIAL HISTORY: Smoked a pack a day for many years until a week ago. Lives with a boyfriend. Alcohol rarely. FAMILY HISTORY: DVT. HOME MEDICATIONS: 1. Percocet 10 1 tablet p.o. q.i.d. 2. Aldactone 12.5 p.o. mg q.h.s. 3. Zoloft 100 mg p.o. daily. 4. Nitrostat 0.4 sublingual q.5 p.r.n. 5. Nicotine patch 21 daily. 6. Lopressor 25 b.i.d. 7. Zestril 5 mg p.o. q.h.s. 8. Neurontin 300 mg p.o. t.i.d. 9. Plavix 75 mg p.o. daily. 10.Lipitor 80 mg q.h.s. 11.Aspirin 81 mg p.o. daily. ALLERGIES: None. PHYSICAL EXAMINATION: VITAL SIGNS: Temperature 98.3, pulse 55, respiratory rate 18, blood pressure 114/69, pulse ox 95% on room air. GENERAL APPEARANCE: Thin built, BMI 17.4. Sitting up. EYES: Pupils equal. Conjunctivae normal. HEENT: External appearance of nose and ears normal. Oral cavity normal. NECK: JVD not raised. Mass not palpable. RESPIRATORY: Effort normal. LUNGS: Diminished breath sounds. CARDIOVASCULAR: First and second sounds normal. No edema. ABDOMEN: Soft, nontender. Liver and spleen not palpable. LYMPHATICS: No lymph nodes palpable in the neck and axilla. PSYCHIATRY: Alert and oriented times three. Mood and affect slightly anxious. NEUROLOGICAL: Pupils equal. Cranial nerves grossly intact. Power and sensation grossly intact. INVESTIGATIONS: White count 8.8, hemoglobin 13.2, potassium 4.6, BUN and creatinine is normal. Troponin 0.157, 0.144. The patient's troponin on 08/11/2018 was 17.2. The patient's 2D echocardiogram on 08/11/2018 showed the EF of less than 20%. The patient also had a limited view echocardiogram today that showed an EF of the same. ASSESSMENT: 1. Left chest wall pain, need to rule out angina in a patient with recent acute myocardial infarction. 2. Acute ST-elevation myocardial infarction on August 11, 2018 with stents to the RCA. 3. Chronic obstructive pulmonary disease in an ex-smoker. 4. Essential hypertension. 5. Primary osteoarthritis of multiple joints. 6. Ischemic cardiomyopathy EF 20-25 percent. PLAN: Home medications are resumed. Serial cardiac enzymes in place. Cardiology was consulted. The patient's home medications are resumed. Care was discussed with the patient. Copy to Dr. Balaji Mitchell. MMODL / IJN: [id number] /
[2018-08-18 01:54] LABS: Cholesterol 111 mg/dL (<200); HDL Cholesterol 34 mg/dL (40-60); LDL Cholesterol,Calculated 52 mg/dL (0-99); Triglycerides 126 mg/dL (<150)
[2018-08-18] MEDS: oxyCODONE-APAP 10-325MG 1 EACH TAB PO SCH ×4 (04:24→22:04)
--- NOTE | 2018-08-18 08:20 | P.CRDCN ---
History of Present Illness Consult date: 08/18/18 Requesting physician: Germain Cuba Consult reason: chest pain Chief complaint: Chest pain History of present illness: This is a pleasant 57-year-old female who was just recently in the hospital, she underwent angioplasty and stenting of the right coronary artery, patient also had significant abnormality in her troponin and her echocardiogram with Doppler study revealed an ejection fraction of less than 20%, anterior septal lateral and septal, apical hypokinesia noted with the suggestion that the patient may have also had a stress cardiomyopathy. She was discharged home from the hospital, overall she states she was doing fairly well. The night before last she woke up with symptoms of chest discomfort, she states that she took one sublingual nitroglycerin which seemed to relieve his symptoms and she went to bed. Again in the morning patient had chest pain, she describes it as a sharp aching discomfort, she again took a nitroglycerin which didn't give her complete relief of symptoms and patient ultimately came to the hospital for further evaluation and treatment. Patient states that she had been taking all of her medications at home, and she also states that she has not smoked for discharge home from the hospital. Her initial EKG on presentation here showed a sinus bradycardia with ST-T wave changes noted in the anterior leads. Subsequent EKG showed a normal sinus rhythm with continuous ST-T wave changes in the anterior leads however somewhat improved. A limited echocardiogram with Doppler study was performed which revealed an ejection fraction of 25%. Chest x-ray did not reveal any acute process. Blood pressure on arrival here 104/60 with a heart ra te in the 40s, 95% on room air. White blood cell count 8.8, hemoglobin 13.2, platelet count 235. Sodium 139, potassium 4.6, BUN 15 and creatinine 0.6, magnesium 1.8. BNP level 3730. Troponins 0.15, 0.14, 0.13. At the time of my examination this morning the patient is currently chest pain-free. Past Medical History Past Medical History: Hypertension Additional Past Medical History / Comment(s): Hepatitis C, chronic back pain Last Myocardial Infarction Date:: 08/11/18 History of Any Multi-Drug Resistant Organisms: None Reported Past Surgical History: Heart Catheterization With Stent, Hysterectomy, Tonsillectomy Additional Past Surgical History / Comment(s): liver biopsy. Stent mid RCA on 08/12 Past Anesthesia/Blood Transfusion Reactions: No Reported Reaction Date of Last Stent Placement:: 08/12/2018 Past Psychological History: No Psychological Hx Reported Smoking Status: Current every day smoker Past Alcohol Use History: None Reported Past Drug Use History: None Reported - Past Family History Father Family Medical History: Deep Vein Thrombosis (DVT) Medications and Allergies Home Medications Medication Instructions Recorded Confirmed Type Gabapentin [Neurontin] 300 mg PO TID 08/11/18 08/17/18 History Sertraline [Zoloft] 100 mg PO DAILY 08/11/18 08/17/18 History oxyCODONE-APAP 10-325MG [Percocet 1 tab PO QID 08/11/18 08/17/18 History 10-325 mg] Aspirin 81 mg PO DAILY chew 08/14/18 08/17/18 Rx Atorvastatin [Lipitor] 80 mg PO HS #30 tab 08/14/18 08/17/18 Rx Clopidogrel [Plavix] 75 mg PO DAILY #303 tab 08/14/18 08/17/18 Rx Lisinopril [Zestril] 5 mg PO HS #30 tab 08/14/18 08/17/18 Rx Metoprolol Tartrate [Lopressor] 25 mg PO BID #603 tab 08/14/18 08/17/18 Rx Nicotine 21Mg/24Hr Patch [Habitrol] 1 patch TRANSDERM DAILY #30 patch 08/14/18 08/17/18 Rx Nitroglycerin Sl Tabs [Nitrostat] 0.4 mg SUBLINGUAL Q5M PRN #25 tab 08/14/18 08/17/18 Rx Spironolactone [Aldactone] 12.5 mg PO HS 08/17/18 08/17/18 History Allergies Allergy/AdvReac Type Severity Reaction Status Date / Time No Known Allergies Allergy Verified 08/17/18 13:14 Physical Exam Vitals: Vital Signs Temp Pulse Pulse Resp BP BP Pulse Ox 08/18/18 04:00 52 L 15 117/71 98 08/18/18 00:00 51 L 17 91/50 94 L 08/17/18 19:58 57 L 18 08/17/18 19:00 98.6 F 55 L 18 114/69 95 08/17/18 18:30 55 L 12 117/78 94 L 08/17/18 18:00 57 L 18 111/66 94 L 08/17/18 17:30 59 L 16 126/74 95 08/17/18 17:00 48 L 16 109/74 94 L 08/17/18 16:30 47 L 18 99/60 95 08/17/18 15:30 49 L 18 117/82 98 08/17/18 15:00 46 L 16 112/75 97 08/17/18 14:30 49 L 18 112/75 96 08/17/18 14:00 50 L 18 112/75 94 L 08/17/18 13:30 45 L 18 112/75 95 08/17/18 13:12 47 L 08/17/18 12:46 98.3 F 46 L 18 104/69 95 Intake and Output 08/17/18 08/18/18 08/18/18 22:59 06:59 14:59 Intake Total 10 20 Balance 10 20 Intake: IV 10 20 Invasive Line 1 10 20 Other: Voiding Method Toilet Toilet # Voids 3 Weight 42.5 kg PHYSICAL EXAMINATION: GENERAL: 57-year-old female in no acute distress at the time of my examination HEENT: Head is atraumatic, normocephalic. Pupils equal, round. Sclera anicteric. Conjunctiva are clear. Mucous membranes of the mouth are moist. Neck is supple. There is no elevated jugular venous pressure. No carotid bruit is heard. HEART EXAMINATION: Heart S1, S2 normal. No murmur or gallop heard. CHEST EXAMINATION: Lungs are clear to auscultation and precussion. No chest wall tenderness is noted on palpation or with deep breathing. ABDOMEN: Soft, nontender. Bowel sounds are heard. No organomegaly noted. EXTREMITIES: 2+ peripheral pulses with no evidence of peripheral edema and no calf tenderness noted. NEUROLOGIC patient is awake, alert and oriented 3. . Results 08/17/18 13:11 08/17/18 13:11 Cardiac Enzymes 08/17/18 08/17/18 08/17/18 Range/Units 13:11 13:11 19:20 AST 24 (14-36) U/L Troponin I 0.157 H* 0.144 H* (0.000-0.034) ng/mL 08/18/18 Range/Units 01:31 AST (14-36) U/L Troponin I 0.139 H* (0.000-0.034) ng/mL Coagulation 08/17/18 Range/Units 13:11 PT 11.2 (9.0-12.0) sec APTT 23.3 (22.0-30.0) sec Lipids 08/17/18 Range/Units 13:11 Triglycerides 126 (<150) mg/dL Cholesterol 111 (<200) mg/dL HDL Cholesterol 34 L (40-60) mg/dL CBC 08/17/18 Range/Units 13:11 WBC 8.8 (3.8-10.6) k/uL RBC 4.30 (3.80-5.40) m/uL Hgb 13.2 (11.4-16.0) gm/dL Hct 39.5 (34.0-46.0) % Plt Count 235 (150-450) k/uL Comprehensive Metabolic Panel 08/17/18 Range/Units 13:11 Sodium 139 (137-145) mmol/L Potassium 4.6 (3.5-5.1) mmol/L Chloride 104 (98-107) mmol/L Carbon Dioxide 28 (22-30) mmol/L BUN 15 (7-17) mg/dL Creatinine 0.68 (0.52-1.04) mg/dL Glucose 104 H (74-99) mg/dL Calcium 9.1 (8.4-10.2) mg/dL AST 24 (14-36) U/L ALT 35 (9-52) U/L Alkaline Phosphatase 39 (38-126) U/L Total Protein 5.7 L (6.3-8.2) g/dL Albumin 3.6 (3.5-5.0) g/dL Current Medications Generic Name Dose Route Start Last Admin Trade Name Freq PRN Reason Stop Dose Admin Aspirin 325 mg 08/18/18 09:00 Aspirin PO DAILY [facility] Atorvastatin Calcium 80 mg 08/17/18 21:00 08/17/18 20:55 Lipitor PO 80 mg HS ELISE Administration Clopidogrel Bisulfate 75 mg 08/18/18 09:00 Plavix PO DAILY [facility] Gabapentin 300 mg 08/17/18 22:00 08/17/18 20:54 Neurontin PO 300 mg TID ELISE Administration Lisinopril 5 mg 08/17/18 21:00 08/17/18 20:55 Zestril PO 5 mg HS ELISE Administration Metoprolol Tartrate 25 mg 08/17/18 21:00 08/17/18 20:55 Lopressor PO 25 mg BID ELISE Administration Nicotine 1 patch 08/17/18 20:45 08/17/18 20:48 Habitrol 21mg/24hr Patch TRANSDERM Not Given DAILY ELISE Nitroglycerin 0.4 mg 08/17/18 14:59 Nitrostat SUBLINGUAL Q5M PRN Chest Pain Oxycodone/Acetaminophen 1 each 08/18/18 04:00 08/18/18 04:24 Percocet 10-325 PO 1 each Q6H ELISE Administration Sertraline HCl 100 mg 08/18/18 09:00 Zoloft PO DAILY ELISE Spironolactone 12.5 mg 08/17/18 21:00 08/17/18 20:54 Aldactone PO 12.5 mg HS ELISE Administration Intake and Output 08/17/18 08/18/18 08/18/18 22:59 06:59 14:59 Intake Total 10 20 Balance 10 20 Intake: IV 10 20 Invasive Line 1 10 20 Other: Voiding Method Toilet Toilet # Voids 3 Weight 42.5 kg 08/17/18 13:11 08/17/18 13:11 EKG Interpretations (text) EKG shows a sinus bradycardia with ST-T wave changes noted in the anterior Assessment and Plan Plan: Assessment and plan #1 chest pain in a patient with recent RCA stenting last week. EKG shows a sinus bradycardia with anterior ST-T wave changes improved from prior EKGs. Troponins 0.15 0.14 0.13, downward trend from recent event #2Echocardiogram with Doppler study performed on August 12 showed an ejection fraction of less than 20% with anterior septal, lateral, septal, and apical hypokinesia, a limited echo was performed here which revealed an ejection fracti on of 20-25% #3 history of nicotine dependence although the patient states she has quit smoking since her admission to the hospital #4 hyperlipidemia Plan We will decrease her aspirin 81 mg daily, continue Lipitor, Plavix, lisinopril, decrease metoprolol to succinate 25 mg daily, continue Aldactone. Patient may need to have a repeat cardiac catheterization, further recommendations to follow. DNP note has been reviewed, I agree with a documented findings and plan of care. Patient was seen and examined.
[2018-08-18] MEDS ORDERED: ASPIRIN 81 MG PO SCH (09:00)
[2018-08-18] MEDS ORDERED: ASPIRIN 325 MG TAB PO SCH (09:00)
[2018-08-18] MEDS: CLOPIDOGREL 75 MG TAB PO SCH (09:16)
[2018-08-18] MEDS: SERTRALINE 100 MG TAB PO SCH (09:16)
[2018-08-18] MEDS: GABAPENTIN 300 MG CAP PO SCH ×3 (09:16→22:04)
[2018-08-18] MEDS: METOPROLOL TARTRATE 25 MG TAB PO SCH ×2 (09:17→22:04)
[2018-08-18] MEDS: NICOTINE 21MG/24HR PATCH TRANSDERM SCH (09:17)
[2018-08-18] MEDS ORDERED: ALPRAZolam 0.25 MG TAB PO PRN (11:22)
[2018-08-18] MEDS ORDERED: SODIUM CHLORIDE 0.9% 1,000 ML in EMPTY BAG 1 BAG IV ONE (11:22)
[2018-08-18] MEDS ORDERED: NITROGLYCERIN SL TABS 0.4 MG TAB SUBLINGUAL PRN (11:22)
[2018-08-18] MEDS ORDERED: ASPIRIN 325 MG TAB PO STA (11:22)
[2018-08-18] MEDS ORDERED: ATORVASTATIN 80 MG TAB PO STA (11:25)
[2018-08-18 11:29] VITALS: BMI 17.1
[2018-08-18] MEDS: ATORVASTATIN 80 MG TAB PO SCH (22:04)
[2018-08-18] MEDS: LISINOPRIL 5 MG TAB PO SCH (22:04)
[2018-08-18] MEDS: SPIRONOLACTONE 25 MG TAB PO SCH (22:04)
[2018-08-18] MEDS: ALPRAZolam 0.5 MG TAB PO PRN (22:06)
--- NOTE | 2018-08-19 | P.PN ---
Subjective Progress Note Date: 08/18/18 Principal diagnosis: Chest pain Coronary artery disease with recent stent placement Patient is a 57-year-old female with a known history of hypertension,hepatitis C treated, osteoarthritis, chronic low back pain, coronary artery disease with stent placement a few days ago and was discharged from the hospital on 08/14/2018 came back to the hospital with complaints of left-sided chest pain and left arm numbness/tingling assessed with some shortness of breath and diaphoresis. Patient presents to ER for evaluation. 08/18/2018 patient currently denied any complain chest pain or shortness of breath. Troponin 0.157, 0.144 and 0.139 2-D echocardiogram showed moderate global hypokinesis. Overall left ventricular systolic dysfunction ejection fraction 20-25%. no pericardial effusion. Cardiology is considering another cardiac catheterization. No nausea vomiting or diarrhea. No abdominal pain. No fever no chills. No cough or sputum production. Current medications reviewed. Objective - Vital Signs Vital signs: Vital Signs Temp 98.8 F 08/18/18 12:00 Pulse 60 08/18/18 12:00 Resp 16 08/18/18 12:00 BP 122/76 08/18/18 12:00 Pulse Ox 96 08/18/18 12:00 Intake & Output 08/17/18 08/18/18 08/18/18 18:59 06:59 18:59 Intake Total 30 20 Balance 30 20 Weight 43.091 kg 42.5 kg 42.5 kg Intake: IV 30 20 Invasive Line 1 30 20 Oral 0 Other: Voiding Method Toilet Toilet # Voids 3 0 # Bowel Movements 0 - Exam PHYSICAL EXAMINATION: Patient is lying in the bed comfortably, no acute distress, awake alert and oriented.. HEENT: Normocephalic. Neck is supple. Pupils reactive. Nostrils clear. Oral cavity is moist. Ears reveal no drainage. Neck reveals no JVD, carotid bruits, or thyromegaly. CHEST EXAMINATION: Trachea is central. Symmetrical expansion. Lung galvez clear to auscultation and percussion. CARDIAC: Normal S1, S2 with no gallops. No murmurs ABDOMEN: Soft. Bowel sounds normal. No organomegaly. No abdominal bruits. Extremities: reveal no edema. No clubbing or cyanosis Neurologically awake, alert, oriented x3 with well-coordinated movements. No focal deficits noted Skin: No rash or skin lesions. Psychiatric: Coperative. Nonsuicidal Musculoskeletal: No joint swelling or deformity. Normal range of motion. - Labs CBC & Chem 7: 08/17/18 13:11 08/17/18 13:11 Labs: Abnormal Lab Results - Last 24 Hours (Table) 08/17/18 08/17/18 08/18/18 Range/Units 13:11 19:20 01:31 Troponin I 0.144 H* 0.139 H* (0.000-0.034) ng/mL HDL Cholesterol 34 L (40-60) mg/dL Assessment and Plan Assessment: Chest pain possible non-ST elevated DC. Troponin is trending down. recent history of DC and stent placement to RCA on 08/11/2018 Ischemic cardiomyopathy ejection fraction 20-25% Hypertension Hyperlipidemia Nicotine addiction. Smoking about one week ago. Osteoarthritis of multiple joints Plan: Patient will be continued on aspirin, Lasix, metoprolol and lisinopril as well as statins. Continue with spironolactone. Cardiology has been consulted and is following. 2-D echocardiogram was done. Cardiology is considering for repeat catheterization. Continue the telemetry monitoring. Troponin is stenting down. Further recommendations based on the clinical course. Time with Patient: Greater than 30
[2018-08-19] MEDS: HEPARIN SODIUM,PORCINE 5,000 UNIT/ML 1 ML VIAL SQ SCH ×4 (00:09→23:32)
[2018-08-19] MEDS: GABAPENTIN 300 MG CAP PO SCH ×3 (05:13→20:59)
[2018-08-19] MEDS: oxyCODONE-APAP 10-325MG 1 EACH TAB PO SCH ×5 (05:13→21:01)
[2018-08-19] MEDS: CLOPIDOGREL 75 MG TAB PO SCH (05:13)
[2018-08-19] MEDS: METOPROLOL TARTRATE 25 MG TAB PO SCH (05:14)
[2018-08-19] MEDS ORDERED: ATORVASTATIN 80 MG TAB PO ONE (06:00)
[2018-08-19] MEDS ORDERED: ASPIRIN 325 MG TAB PO ONE ×2 (06:00→10:56)
[2018-08-19] MEDS: NICOTINE 21MG/24HR PATCH TRANSDERM SCH (08:11)
--- NOTE | 2018-08-19 10:04 | P.PN ---
Subjective Progress Note Date: 08/19/18 Principal diagnosis: Chest discomfort This is a pleasant 57-year-old female patient with known history of coronary artery disease who underwent stenting of the RCA last week presented back to the hospital with a chest discomfort which is concerning for angina. She did have some chest discomfort last night as well. The plan is to proceed with a heart catheterization later on today. The procedure was explained to the patient in details. Objective - Vital Signs Vital signs: Vital Signs Temp 98.3 F 08/19/18 00:00 Pulse 52 L 08/19/18 04:00 Resp 18 08/19/18 04:00 BP 92/66 08/19/18 04:00 Pulse Ox 95 08/19/18 00:00 Intake & Output 08/18/18 08/19/18 08/19/18 18:59 06:59 18:59 Intake Total 510 260 Balance 510 260 Weight 42.5 kg 41.6 kg Intake: IV 30 20 Invasive Line 1 30 20 Oral 480 240 Other: Voiding Method Toilet Toilet # Voids 0 2 # Bowel Movements 0 - Constitutional General appearance: Present: no acute distress - Respiratory Respiratory: bilateral: CTA - Cardiovascular Rhythm: regular Heart sounds: normal: S1, S2 - Labs CBC & Chem 7: 08/17/18 13:11 08/17/18 13:11 Assessment and Plan Assessment: Assessment #1 chest discomfort #2 known CAD and prior stenting of the RCA Plan #1 proceed with coronary angiogram later on today
[2018-08-19] MEDS ORDERED: LIDOCAINE 1% INJ 10MG/ML (20 ML MDV) ONE (10:20)
[2018-08-19] MEDS ORDERED: ASPIRIN 325 MG TAB ONE (10:55)
[2018-08-19] MEDS ORDERED: IV FLUID CONTINUATION 900 ML IV ONE (10:56)
[2018-08-19] MEDS ORDERED: fentaNYL (PF) 50 MCG/ML 2 ML AMP ONE (11:03)
[2018-08-19] MEDS ORDERED: fentaNYL (PF) 50 MCG/ML 2 ML AMP IV ONE (11:04)
[2018-08-19] MEDS ORDERED: LIDOCAINE 1% INJ 10MG/ML (20 ML MDV) SQ ONE (11:04)
[2018-08-19] MEDS ORDERED: IOPAMIDOL-370 150ML BTL INJ ONE (11:18)
[2018-08-19] MEDS ORDERED: RX INFO: IV CONTRAST WAS GIVEN 1 EACH MISC MISCELLANE PRN (11:24)
[2018-08-19] MEDS ORDERED: SODIUM CHLORIDE 0.9% 1,000 ML IV SCH (11:30)
--- NOTE | 2018-08-19 13:01 | CC ---
CARDIAC CATHETERIZATION REPORT DATE OF SERVICE: 08/19/2018 PERFORMING PHYSICIAN: Luciano Beck MD, Resource Economist. PROCEDURE PERFORMED: 1. Selective right and left coronary angiogram. 2. Left heart catheterization. INDICATION: This is a pleasant, 57-year-old female patient who presented to the hospital last week with acute non ST elevation myocardial infarction and underwent a heart catheterization and stenting of the right coronary artery, presented back to the hospital complaining of chest discomfort. She continues to have ongoing chest discomfort. Because of that, a heart catheterization was advised. APPROACH: Right common femoral artery. COMPLICATION: None. LEVEL OF SEDATION: Moderate with sedation length of 17 minutes. PROCEDURE DESCRIPTION: After obtaining an informed consent, the patient was brought to the cardiac laboratory courier. The right common femoral artery was cannulated using micropuncture technique and the micropuncture wire passed easily, then I placed a 6-Namibian sheath in the right common femoral artery. Selective right and left coronary angiogram was performed using JR4.5 and JL3.5 catheters. Both catheters were 5-Namibian catheters. After that I did selective right and left coronary angiograms. After that I did left heart catheterization using 5- Namibian pigtail catheter. The procedure was completed without any complication. SELECTIVE CORONARY ANGIOGRAM: 1. The right coronary artery is a large caliber vessel and it is a dominant vessel. The RCA in the proximal portion appeared to be normal. The mid RCA is stented and the stent is patent. The RCA distally appeared to have 50% disease just before the bifurcation into PDA and PLV branches, which both appear to have mild diffuse disease. 2. The left main is a long left main and appeared to have mild disease only. It bifurcates into left circumflex and left anterior descending artery. 3. The left circumflex is a medium caliber vessel. It is a nondominant vessel with the proximal left circumflex appeared to be angiographically normal. It gives rise into a medium-size OM branch which has a lesion appeared to be in the range of 70%. The left circumflex continues after that as a small-caliber vessel in the AV groove. 4. The left anterior descending artery, the site ramus intermedius is a large caliber vessel, seems to be angiographically normal. 5. The LAD. the LAD appeared to have mild diffuse disease only. Distally, become very small caliber vessel. The LAD in the pro midportion gives rise into a large diagonal branch which is a medium sized diagonal branch which seems to be normal. HEMODYNAMICS: The left ventricular end-diastolic pressure was about 8 mmHg without significant gradient across the aortic valve. CONCLUSION: 1. Patent stent in the mid right coronary artery. 2. Severe disease involving a medium-sized left circumflex coronary artery. 3. Mild disease involving the LAD system. POSTPROCEDURE MANAGEMENT: 1. I did recommend maximized medical treatment. 2. Decrease the dose of metoprolol in view of the bradycardia. 3. Add oral nitrate to the current medical treatment. 4. If the patient continues to have chest discomfort, we will pursue with a PCI of the left circumflex. MMODL / IJN: [id number] /
[2018-08-19] MEDS: SERTRALINE 100 MG TAB PO SCH (15:51)
[2018-08-19] MEDS: SPIRONOLACTONE 25 MG TAB PO SCH (20:59)
[2018-08-19] MEDS: LISINOPRIL 5 MG TAB PO SCH (21:00)
[2018-08-20] MEDS: ALPRAZolam 0.5 MG TAB PO PRN (00:19)
--- NOTE | 2018-08-20 00:25 | P.PN ---
Subjective Progress Note Date: 08/19/18 Principal diagnosis: Chest pain Coronary artery disease with recent stent placement Patient is a 57-year-old female with a known history of hypertension,hepatitis C treated, osteoarthritis, chronic low back pain, coronary artery disease with stent placement a few days ago and was discharged from the hospital on 08/14/2018 came back to the hospital with complaints of left-sided chest pain and left arm numbness/tingling assessed with some shortness of breath and diaphoresis. Patient presents to ER for evaluation. 08/18/2018 patient currently denied any complain chest pain or shortness of breath. Troponin 0.157, 0.144 and 0.139 2-D echocardiogram showed moderate global hypokinesis. Overall left ventricular systolic dysfunction ejection fraction 20-25%. no pericardial effusion. Cardiology is considering another cardiac catheterization. No nausea vomiting or diarrhea. No abdominal pain. No fever no chills. No cough or sputum production. 08/19/2018 Patient denied any complaints of chest pain or shortness of breath. Patient underwent cardiac catheterization showed severe at Atherosclerotic disease. Maximum medical therapy was recommended by cardiology. No other acute overnight issues. All other review of systems negative except the above Current medications reviewed. Objective - Vital Signs Vital signs: Vital Signs Temp 98.0 F 08/19/18 16:00 Pulse 49 L 08/19/18 16:00 Resp 14 08/19/18 16:00 BP 88/47 08/19/18 16:00 Pulse Ox 96 08/19/18 16:00 Intake & Output 08/19/18 08/19/18 08/20/18 06:59 18:59 06:59 Intake Total 260 2084 Balance 260 2084 Weight 41.6 kg Intake: IV 20 150 Invasive Line 1 20 0 Intake, IV Titration 534 Amount Sodium Chloride 0.9% 1, 450 000 ml @ 75 mls/hr IV . [id number] [facility] Rx#:[id number] Sodium Chloride 0.9% 1, 84 000 ml In Empty Bag 1 bag @ 1 ML/KG/HR 42.5 mls/hr IV .[id number] [facility] Rx#: [id number] Oral 240 1400 Other: Voiding Method Toilet Toilet # Voids 2 2 - Exam PHYSICAL EXAMINATION: Patient is lying in the bed comfortably, no acute distress, awake alert and oriented.. HEENT: Normocephalic. Neck is supple. Pupils reactive. Nostrils clear. Oral cavity is moist. Ears reveal no drainage. Neck reveals no JVD, carotid bruits, or thyromegaly. CHEST EXAMINATION: Trachea is central. Symmetrical expansion. Lung galvez clear to auscultation and percussion. CARDIAC: Normal S1, S2 with no gallops. No murmurs ABDOMEN: Soft. Bowel sounds normal. No organomegaly. No abdominal bruits. Extremities: reveal no edema. No clubbing or cyanosis Neurologically awake, alert, oriented x3 with well-coordinated movements. No focal deficits noted Skin: No rash or skin lesions. Psychiatric: Coperative. Nonsuicidal Musculoskeletal: No joint swelling or deformity. Normal range of motion. - Labs CBC & Chem 7: 08/17/18 13:11 08/17/18 13:11 Assessment and Plan Assessment: Chest pain possible non-ST elevated SC. Troponin is trending down. Status post repeat cardiac catheterization. Maximum medical therapy recommended recent history of SC and stent placement to RCA on 08/11/2018 Ischemic cardiomyopathy ejection fraction 20-25% Hypertension Hyperlipidemia Nicotine addiction. Smoking about one week ago. Osteoarthritis of multiple joints Plan: Patient will be continued on aspirin, Lasix, metoprolol and lisinopril as well as statins. Continue with spironolactone. Cardiology has been consulted and is following. 2-D echocardiogram was done. Status post repeat catheterization. C ontinue the telemetry monitoring. Troponin is stenting down. Further recommendations based on the clinical course. Time with Patient: Greater than 30
[2018-08-20 05:25] VITALS: RESP 16
[2018-08-20] MEDS: oxyCODONE-APAP 10-325MG 1 EACH TAB PO SCH ×2 (05:57→08:46)
[2018-08-20] MEDS: CLOPIDOGREL 75 MG TAB PO SCH (08:46)
[2018-08-20] MEDS: NICOTINE 21MG/24HR PATCH TRANSDERM SCH (08:47)
[2018-08-20] MEDS: HEPARIN SODIUM,PORCINE 5,000 UNIT/ML 1 ML VIAL SQ SCH ×2 (08:47→08:52)
[2018-08-20] MEDS: GABAPENTIN 300 MG CAP PO SCH (08:47)
[2018-08-20] MEDS: SERTRALINE 100 MG TAB PO SCH (08:47)
[2018-08-20] MEDS ORDERED: ASPIRIN 81 MG PO SCH (09:00)
[2018-08-20] MEDS ORDERED: ISOSORBIDE MONONITRATE ER 30 MG TAB.ER.24H PO SCH (09:00)
--- NOTE | 2018-08-20 09:17 | P.PN ---
Subjective Progress Note Date: 08/20/18 This is a pleasant 57-year-old female who was just recently in the hospital, she underwent angioplasty and stenting of the right coronary artery, patient also had significant abnormality in her troponin and her echocardiogram with Doppler study revealed an ejection fraction of less than 20%, anterior septal lateral and septal, apical hypokinesia noted with the suggestion that the patient may have also had a stress cardiomyopathy. She was discharged home from the hospital, overall she states she was doing fairly well. The night before last she woke up with symptoms of chest discomfort, she states that she took one sublingual nitroglycerin which seemed to relieve his symptoms and she went to bed. Again in the morning patient had chest pain, she describes it as a sharp aching discomfort, she again took a nitroglycerin which didn't give her complete relief of symptoms and patient ultimately came to the hospital for further evaluation and treatment. Patient states that she had been taking all of her medications at home, and she also states that she has not smoked for discharge home from the hospital. Her initial EKG on presentation here showed a sinus bradycardia with ST-T wave changes noted in the anterior leads. Subsequent EKG showed a normal sinus rhythm with continuous ST-T wave changes in the anterior leads however somewhat improved. A limited echocardiogram with Doppler study was performed which revealed an ejection fraction of 25%. Chest x-ray did not reveal any acute process. Blood pressure on arrival here 104/60 with a heart rate in the 40s, 95% on room air. White blood cell count 8.8, hemoglobin 13.2, platelet count 235. Sodium 139, potassium 4.6, BUN 15 and creatinine 0.6, magnesium 1.8. BNP level 3730. Troponins 0.15, 0.14, 0.13. At the time of my examination this morning the patient is currently chest pain-free. 08/20/2018 Patient was taken to the cardiac catheterization lab yesterday by Dr. Cowan where she was found to have a patent stent in the mid right coronary artery, with severe disease involving a medium sized left circumflex artery and mild disease in the LAD. Medical therapy was advised. Patient was seen and examined this morning, denied any chest discomfort in her breathing overall has been stable. Blood pressure is running around 90 systolic. She is not currently on a beta tom because of hypotension and bradycardia. We will crease her RHONDA inhibitor to 2.5 mg daily and decrease Imdur to 50 mg daily, continue Lipitor 80, aspirin 81, and Plavix 75 mg. From our perspective, she may be able to be discharged home today, follow-up appointment with Dr. Brody in the office. Objective - Vital Signs Vital signs: Vital Signs Temp 97.8 F 08/20/18 04:00 Pulse 54 L 08/20/18 04:00 Resp 16 08/20/18 04:00 BP 91/51 08/20/18 04:00 Pulse Ox 96 08/20/18 04:00 Intake & Output 08/19/18 08/20/18 08/20/18 18:59 06:59 18:59 Intake Total 2084 0 Balance 2084 0 Weight 42.9 kg Intake: IV 150 0 Invasive Line 1 0 0 Intake, IV Titration 534 Amount Sodium Chloride 0.9% 1, 450 000 ml @ 75 mls/hr IV . [id number] [facility] Rx#:[id number] Sodium Chloride 0.9% 1, 84 000 ml In Empty Bag 1 bag @ 1 ML/KG/HR 42.5 mls/hr IV .[id number] [facility] Rx#: [id number] Oral 1400 Other: Voiding Method Toilet Toilet # Voids 2 3 - Exam PHYSICAL EXAMINATION: GENERAL: 57-year-old female in no acute distress at the time of my examination HEENT: Head is atraumatic, normocephalic. Pupils equal, round. Sclera anicteric. Conjunctiva are clear. Mucous membranes of the mouth are moist. Neck is supple. There is no elevated jugular venous pressure. No carotid bruit is heard. HEART EXAMINATION: Heart S1, S2 normal. No murmur or gallop heard. CHEST EXAMINATION: Lungs are clear to auscultation and precussion. No chest wall tenderness is noted on palpation or with deep breathing. ABDOMEN: Soft, nontender. Bowel sounds are heard. No organomegaly noted. EXTREMITIES: 2+ peripheral pulses with no evidence of peripheral edema and no calf tenderness noted. Right groin soft, no evidence of any hematoma. NEUROLOGIC patient is awake, alert and oriented 3. . - Labs CBC & Chem 7: 08/17/18 13:11 08/17/18 13:11 Assessment and Plan Plan: Assessment and plan #1 chest pain in a patient with recent RCA stenting last week. EKG shows a sinus bradycardia with anterior ST-T wave changes improved from prior EKGs. Troponins 0.15 0.14 0.13, downward trend from recent event #2Echocardiogram with Doppler study performed on August 12 showed an ejection fraction of less than 20% with anterior septal, lateral, septal, and apical hypokinesia, a limited echo was performed here which revealed an ejection frac tion of 20-25% #3 history of nicotine dependence although the patient states she has quit smoking since her admission to the hospital #4 hyperlipidemia Plan Patient did undergo cardiac catheterization yesterday which revealed a patent stent in the mid right coronary artery, severe disease involving a medium sized left circumflex and mild disease in the LAD. Maximal medical therapy advised. Because of hypotension and bradycardia she is not currently on a beta tom. We will continue her lisinopril at 2-1/2 mg daily, decrease Imdur to 15 mg daily, continue baby aspirin, Plavix 75 mg daily and Aldactone. She may be able to be discharged home today from our perspective to follow-up with Dr. Brody in the office. DNP note has been reviewed, I agree with a documented findings and plan of care. Patient was seen and examined.
[2018-08-20 11:27] VITALS: BP 107/64; PULSE 67; TEMP 97.6
[2018-08-20] MEDS ORDERED: LISINOPRIL 2.5 MG TAB PO SCH (21:00)
[2018-08-20] MEDS ORDERED: ATORVASTATIN 80 MG TAB PO SCH (21:00)
[2018-08-21] MEDS ORDERED: ISOSORBIDE MONONITRATE ER 15 MG TAB PO SCH (09:00)
== END 2018-08-20 12:03 | disposition home or self-care (01) | DRG 282 ==
LOC: EC 12:41 → 3SCARD 15:45 → OBSVTOIN 08-19 09:36
PROVIDERS: ADMIT Hospitalist; ATTEND Hospitalist
PROC: 4A023N7 Measurement of Cardiac Sampling and Pressure, Left Heart, Percutaneous Approach (ICD-10-PCS; principal; 2018-08-19 10:43)
PROC: B2111ZZ Fluoroscopy of Multiple Coronary Arteries using Low Osmolar Contrast (ICD-10-PCS; principal; 2018-08-19 10:43)
PROC: B2151ZZ Fluoroscopy of Left Heart using Low Osmolar Contrast (ICD-10-PCS; principal; 2018-08-19 10:43)
DX: I21.4 Non-ST elevation (NSTEMI) myocardial infarction (principal); E78.5 Hyperlipidemia, unspecified; G89.29 Other chronic pain; I10 Essential (primary) hypertension; I25.10 Atherosclerotic heart disease of native coronary artery without angina pectoris; I25.5 Ischemic cardiomyopathy; J44.9 Chronic obstructive pulmonary disease, unspecified; M15.9 Polyosteoarthritis, unspecified; Z79.02 Long term (current) use of antithrombotics/antiplatelets; Z79.82 Long term (current) use of aspirin; Z79.899 Other long term (current) drug therapy; Z90.710 Acquired absence of both cervix and uterus; Z95.5 Presence of coronary angioplasty implant and graft; F17.200 Nicotine dependence, unspecified, uncomplicated; B19.20 Unspecified viral hepatitis C without hepatic coma; Z79.891 Long term (current) use of opiate analgesic
CPT/HCPCS: 36415; 71046; 80053; 80061; 83735; 83880; 84484; 85025; 85610; 85730; 93005; 93308; 93458; 99285

== ENCOUNTER 2018-09-04 21:35 | Observation (INO) | payer OTHER ==
--- NOTE | 2018-09-04 22:15 | ED ---
Chest Pain HPI - General Chief Complaint: Chest Pain Stated Complaint: Chest pain Time Seen by Provider: 09/04/18 21:45 Source: patient Mode of arrival: wheelchair Limitations: no limitations - History of Present Illness Initial Comments: 's patient is a 57-year-old woman who presents with complaint of pain in the chest that radiates to her left scapula. She states it started around noon, while she was lying in bed watching television. She describes as an ache. Moderate to severe intensity. She states that she did take some nitroglycerin that reduced the severity of it. She is declining further analgesia. The patient states that she also had some accompanying nausea. She notes that she had a stent placed earlier this month.. Complaint: chest pain Onset/Timin -: hour(s) Onset: during rest Pain Location: substernal Pain Radiation: other (Left scapula) Severity: moderate Quality: aching Consistency: constant Improves With: nitroglycerin Worsens With: nothing Anginal Symptoms: nausea Treatments Prior to Arrival: nitroglycerin - Related Data Home Medications Medication Instructions Recorded Confirmed Gabapentin [Neurontin] 300 mg PO TID 08/11/18 09/04/18 Sertraline [Zoloft] 100 mg PO DAILY 08/11/18 09/04/18 ALPRAZolam [Xanax] 1 - 2 tab PO BID 09/04/18 09/04/18 Spironolactone [Aldactone] 25 mg PO DAILY 09/04/18 09/04/18 Previous Rx's Medication Instructions Recorded Aspirin 81 mg PO DAILY chew 08/14/18 Atorvastatin [Lipitor] 80 mg PO HS #30 tab 08/14/18 Clopidogrel [Plavix] 75 mg PO DAILY #303 tab 08/14/18 Nitroglycerin Sl Tabs [Nitrostat] 0.4 mg SUBLINGUAL Q5M PRN #25 tab 08/14/18 Isosorbide Mononitrate ER [Imdur] 15 mg PO DAILY #30 dose 08/20/18 Lisinopril [Zestril] 2.5 mg PO HS #30 tab 08/20/18 oxyCODONE-APAP 10-325MG [Percocet 1 tab PO BID #0 08/20/18 10-325 mg] Allergies Allergy/AdvReac Type Severity Reaction Status Date / Time lactose AdvReac Nausea & Verified 09/04/18 22:25 Vomiting & Diarrhea Review of Systems ROS Statement: Those systems with pertinent positive or pertinent negative responses have been documented in the HPI. ROS Other: All systems not noted in ROS Statement are negative. Constitutional: Denies: fever, chills Respiratory: Denies: cough, dyspnea Cardiovascular: Reports: as per HPI, chest pain. Denies: palpitations, orthopnea, edema, syncope Gastrointestinal: Reports: nausea. Denies: abdominal pain, vomiting Genitourinary: Denies: dysuria, hematuria Musculoskeletal: Denies: back pain Skin: Denies: rash Neurological: Denies: headache, weakness, numbness EKG Findings - EKG Comments: EKG Findings:: T inversions anterior leads concerning for ischemia. - EKG Results: EKG: interpreted by DIXON, sinus rhythm, normal axis, normal QRS EKG shows: bradycardia (Rate 52 bpm) Past Medical History Past Medical History: Hypertension, Myocardial Infarction (NM) Additional Past Medical History / Comment(s): Hepatitis C, chronic back pain Last Myocardial Infarction Date:: 08/11/18 History of Any Multi-Drug Resistant Organisms: None Reported Past Surgical History: Heart Catheterization With Stent, Hysterectomy, Tonsillectomy Additional Past Surgical History / Comment(s): liver biopsy. Stent mid RCA on 08/12 Past Anesthesia/Blood Transfusion Reactions: No Reported Reaction Date of Last Stent Placement:: 08/12/2018 Past Psychological History: No Psychological Hx Reported Smoking Status: Former smoker Past Alcohol Use History: None Reported Past Drug Use History: None Reported - Past Family History Father Family Medical History: Deep Vein Thrombosis (DVT) General Exam Limitations: no limitations General appearance: alert, in no apparent distress Head exam: Present: atraumatic, normocephalic Eye exam: Present: normal appearance. Absent: scleral icterus, conjunctival injection ENT exam: Present: normal oropharynx Neck exam: Present: normal inspection Respiratory exam: Present: wheezes (Just a trace of end expiratory wheeze.). Absent: respiratory distress, rales, rhonchi, stridor, accessory muscle use, decreased breath sounds, prolonged expiratory Cardiovascular Exam: Present: normal rhythm, bradycardia (Rate 56 bpm), normal heart sounds. Absent: systolic murmur, diastolic murmur, rubs, gallop GI/Abdominal exam: Present: soft. Absent: distended, tenderness, guarding, rebound, rigid, mass Extremities exam: Present: normal inspection, normal capillary refill. Absent: pedal edema, calf tenderness Back exam: Present: normal inspection. Absent: CVA tenderness (R), CVA tenderness (L) Neurological exam: Present: alert Skin exam: Present: warm, dry, intact, normal color. Absent: rash Course Vital Signs 09/04/18 09/04/18 09/04/18 21:39 22:01 22:10 Temperature 97.7 F Pulse Rate 54 L 50 L 53 L Respiratory 16 10 L 12 Rate Blood Pressure 156/86 144/86 O2 Sat by Pulse 98 96 97 Oximetry 09/04/18 09/04/18 09/04/18 22:50 23:00 23:10 Temperature Pulse Rate 51 L 53 L 50 L Respiratory 11 L 14 10 L Rate Blood Pressure 146/82 146/82 152/91 O2 Sat by Pulse 97 96 95 Oximetry 09/04/18 09/05/18 09/05/18 23:30 00:00 00:30 Temperature Pulse Rate 51 L 53 L 53 L Respiratory 16 17 20 Rate Blood Pressure 146/82 141/84 131/82 O2 Sat by Pulse 97 97 95 Oximetry 09/05/18 09/05/18 09/05/18 00:45 00:50 01:00 Temperature Pulse Rate 51 L 53 L Respiratory 17 5 L 10 L Rate Blood Pressure 129/80 129/80 O2 Sat by Pulse 95 96 Oximetry 09/05/18 09/05/18 09/05/18 01:30 02:00 02:10 Temperature Pulse Rate 49 L 49 L 49 L Respiratory 12 9 L 30 H Rate Blood Pressure 134/81 146/85 O2 Sat by Pulse 95 Oximetry 09/05/18 09/05/18 09/05/18 02:20 02:30 02:40 Temperature Pulse Rate 47 L 45 L 48 L Respiratory 6 L 9 L 10 L Rate Blood Pressure O2 Sat by Pulse Oximetry Chest Pain MDM - MDM This patient is a 57-year-old woman with chest pain concerning for possible ischemia. Patient's initial troponin is negative and as the pain is been going on since noon does not appear to be having acute NM. Patient will be given heparin and admitted with cardiology consultation. In addition, patient may be having element of pancreatitis as enzyme is high. Will keep nothing by mouth and recheck. Critical Care Time Critical Care Time: Yes (35 minutes) Disposition Clinical Impression: Chest pain Disposition: ADMITTED IP TO THIS HOSP Condition: Fair Is patient prescribed a controlled substance at d/c from ED?: No
[2018-09-04 22:43] LABS: Basophils # (A) 0.1 k/uL (0-0.2); Basophils % (A) 1 %; Eosinophils # (A) 0.7 k/uL (0-0.7); Eosinophils % (A) 8 %; HCT 39.4 % (34.0-46.0); HGB 12.9 gm/dL (11.4-16.0); Lymphocytes # (A) 2.7 k/uL (1.0-4.8); Lymphocytes % (A) 29 %; MCH 29.6 pg (25.0-35.0); MCHC 32.7 g/dL (31.0-37.0); MCV 90.5 fL (80.0-100.0); Mean Platelet Volume 6.8; Monocytes # (A) 0.5 k/uL (0-1.0); Monocytes % (A) 5 %; Neutrophils # (A) 4.9 k/uL (1.3-7.7); Neutrophils % (A) 55 %; Platelet Count 224 k/uL (150-450); RBC 4.36 m/uL (3.80-5.40); RDW 13.3 % (11.5-15.5)
[2018-09-04] MEDS ORDERED: ASPIRIN 81 MG PO STA (22:44)
[2018-09-04] MEDS ORDERED: HEPARIN SODIUM,PORCINE 5,000 UNIT/ML 1 ML VIAL IV ONE (22:45)
[2018-09-04] MEDS ORDERED: HEPARIN SODIUM,PORCINE 5,000 UNIT/ML 1 ML VIAL IV PRN (22:45)
[2018-09-04] MEDS ORDERED: HEPARIN SOD,PORK IN 0.45% NACL 25,000 UNIT in 0.45% NACL 1 250ML.BAG IV SCH (22:45)
[2018-09-04] MEDS ORDERED: MORPHINE SULFATE 4 MG/ML SYRINGE IV STA ×2 (22:46→23:11)
[2018-09-04] MEDS ORDERED: NITROGLYCERIN OINT 1 INCH/GM PACKET TOPICAL STA (22:46)
[2018-09-04 22:56] LABS: ALT 22 U/L (9-52); AST 25 U/L (14-36); Albumin 4.1 g/dL (3.5-5.0); Alkaline Phosphatase 49 U/L (38-126); Amylase 93 U/L (30-110); Anion Gap 7 mmol/L; Blood Urea Nitrogen 13 mg/dL (7-17); Calcium 9.2 mg/dL (8.4-10.2); Carbon Dioxide 26 mmol/L (22-30); Chloride 103 mmol/L (98-107); Glucose 97 mg/dL (74-99); Lipase 580 U/L (23-300); Magnesium 1.7 mg/dL (1.6-2.3); Potassium 4.2 mmol/L (3.5-5.1); Sodium 136 mmol/L (137-145); Total Bilirubin 0.3 mg/dL (0.2-1.3); Total Protein 6.3 g/dL (6.3-8.2)
--- NOTE | 2018-09-04 22:56 | XR ---
EXAM: XR Chest, 2 Views CLINICAL HISTORY: Chest pain TECHNIQUE: Frontal and lateral views of the chest. COMPARISON: Chest x-ray dated 08/17/2018 FINDINGS: Lungs: Unremarkable. No consolidation. Pleural space: Unremarkable. No pneumothorax. Heart: Unremarkable. No cardiomegaly. Mediastinum: Unremarkable. Bones/joints: Unremarkable. Other findings: . IMPRESSION: No acute findings.
[2018-09-04 22:59] LABS: D-Dimer 0.48 mg/L FEU (<0.60); INR 1.1 (<1.2); Partial Thromboplastin Time 24.6 sec (22.0-30.0); Prothrombin Time 11.5 sec (9.0-12.0)
[2018-09-04] MEDS ORDERED: ONDANSETRON 4 MG/2 ML VIAL IVP STA (23:11)
[2018-09-05] MEDS ORDERED: NITROGLYCERIN SL TABS 0.4 MG TAB SUBLINGUAL PRN (00:15)
[2018-09-05] MEDS: SODIUM CHLORIDE 0.9% 1,000 ML IV SCH ×2 (04:03→11:43)
[2018-09-05] MEDS: oxyCODONE-APAP 10-325MG 1 EACH TAB PO PRN ×2 (04:22→16:39)
[2018-09-05 04:23] LABS: Basophils % (A) 1 %; Eosinophils # (A) 0.7 k/uL (0-0.7); Eosinophils % (A) 9 %; HCT 38.2 % (34.0-46.0); HGB 12.3 gm/dL (11.4-16.0); Lymphocytes % (A) 37 %; MCH 29.2 pg (25.0-35.0); MCHC 32.2 g/dL (31.0-37.0); MCV 90.8 fL (80.0-100.0); Mean Platelet Volume 7.1; Monocytes # (A) 0.5 k/uL (0-1.0); Monocytes % (A) 6 %; Neutrophils # (A) 3.7 k/uL (1.3-7.7); Neutrophils % (A) 46 %; Platelet Count 205 k/uL (150-450); RBC 4.21 m/uL (3.80-5.40); RDW 13.5 % (11.5-15.5)
[2018-09-05 07:13] LABS: Amylase 67 U/L (30-110); Lipase 210 U/L (23-300)
[2018-09-05] MEDS: ALPRAZolam 0.25 MG TAB PO SCH ×2 (08:31→20:33)
[2018-09-05] MEDS: ISOSORBIDE MONONITRATE ER 30 MG TAB.ER.24H PO SCH (08:31)
[2018-09-05] MEDS: ASPIRIN 81 MG PO SCH (08:31)
[2018-09-05] MEDS: SERTRALINE 100 MG TAB PO SCH (08:31)
[2018-09-05] MEDS: GABAPENTIN 300 MG CAP PO SCH ×3 (08:32→20:34)
[2018-09-05] MEDS: CLOPIDOGREL 75 MG TAB PO SCH (08:32)
[2018-09-05] MEDS: SPIRONOLACTONE 25 MG TAB PO SCH (08:32)
--- NOTE | 2018-09-05 08:43 | CONS ---
CONSULTATION Ms. Morgan is a 57-year-old female with prior history of smoking, history of hypertension, hyperlipidemia, who came in through the emergency room with symptoms of chest discomfort. The patient presented toward the end of July with a myocardial infarction, underwent stenting of the right coronary artery. She was readmitted earlier in August with recurrent episode of chest discomfort and underwent repeat cardiac catheterization by Dr. Beck and was found to have patent stent of the right coronary artery. The LAD has no evidence of obstructive disease. There was some disease in the obtuse marginal branch. She has been complaining of chest discomfort on and off yesterday throughout the day, not related to physical activity, at times radiating to the back. The discomfort was throughout the day. Her breathing has been stable. She denies any dizziness or palpitation. No syncope. No PND. No orthopnea. No peripheral edema. Her coronary risk factors remarkable for prior history of smoking which she stopped at the time of myocardial infarction. She has history of hypertension and diabetes and hyperlipidemia. MEDICATIONS: Include aspirin once a day, Xanax, Lipitor 80 mg daily, Plavix 75 mg daily, Neurontin, Imdur 15 mg daily, Zestril 2.5 mg daily, Zoloft, Aldactone 25 mg daily, and Percocet. PHYSICAL EXAMINATION: Blood pressure 136/70 with a heart rate in the 50s. HEAD: Normocephalic. EYES: Sclerae anicteric. NECK: Good carotid upstroke. No bruit. No jugular venous distention. LUNGS: Clear to auscultation. HEART: Regular rate and rhythm, S1, S2. No S3. No rub or gallop. ABDOMEN: Soft, nontender. Positive bowel sounds. No organomegaly. EXTREMITIES: No edema. Intact distal pulses. LAB DATA: Hemoglobin of 12.3, BUN and creatinine of 13 and 0.67. Troponin 0.014 and 0.024. Lipase of 580. EKG revealed a sinus mechanism, normal axis, rate of 52 with T-wave inversion in V1 to V3 that was noted in the past with no acute changes. Chest x-ray shows no acute infiltrate. IMPRESSION: 1. Chest discomfort of unclear etiology. No evidence to suggest acute coronary syndrome. Patient had underwent repeat cardiac catheterization recently with no significant progression of disease. 2. Status post stenting of the right coronary artery. 3. Prior history of smoking. 4. Hyperlipidemia. RECOMMENDATION: From the cardiac standpoint, I will stop her heparin. I will increase the dose of her nitrate and increase her level of activity. If she is stable, I would expect she should be able to be discharged home today and follow as an outpatient. No further cardiac workup will be needed at this point. Thank you for this consult. We will follow with you. LELIA / SEBASTIÁN: [id number] /
[2018-09-05] MEDS ORDERED: ISOSORBIDE MONONITRATE ER 15 MG TAB PO SCH (09:00)
[2018-09-05 14:15] VITALS: BMI 17.5
--- NOTE | 2018-09-05 19:05 | HP ---
HISTORY AND PHYSICAL DATE OF ADMISSION: 09/05/2018 DATE OF SERVICE: 09/05/2018. PRESENTING COMPLAINT: Chest pain. HISTORY OF PRESENTING COMPLAINT: This is a pleasant 57-year-old patient of Dr. Balaji Mitchell. Chronic stable medical conditions include hypertension, that was treated, osteoarthritis, chronic low back pain from L5 vertebra missing, COPD. The patient in June of this year had an ST- elevation myocardial infarction, underwent intervention of the RCA and was readmitted with chest pain on August 17. Did undergo a cardiac catheterization on August 19. The patient is found to have a patent stent and severe disease involving the medium-sized left circumflex coronary artery and it was decided to proceed with medical management. The patient was seen by Dr. Beck last admission and it was his impression at that time that if the patient's symptoms persisted, he may do intervention to that artery. Patient yesterday developed significant left chest wall pain associated with nausea. The patient was dizzy, lightheaded, perspiring. Symptoms lasted for quite some time. It felt like a previous heart attack. In fact worse she described. Hence she presented. Admitted for unstable angina. Troponin was negative. REVIEW OF SYSTEMS: CONSTITUTIONAL: None. HEENT: None. RESPIRATORY: As above. CARDIOVASCULAR as above. GASTROINTESTINAL: Heartburn. GENITOURINARY: None. MUSCULOSKELETAL: Pain in the joints. DERMATOLOGICAL, HEMATOLOGIC, LYMPHATIC: none. PSYCHIATRY none. NEUROLOGICAL: None. PAST MEDICAL HISTORY: Hypertension, hepatitis C that was treated, low back pain from missing L5 vertebra, COPD, acute ST-elevation myocardial infarction on August 11, 2018/coronary artery disease with stent to the RCA. PAST SURGICAL HISTORY: Cardiac cath with stent, hysterectomy, tonsillectomy. SOCIAL HISTORY: The patient smoked a pack a day for many years up until about 6 weeks ago. Lives with a boyfriend. Alcohol rarely. FAMILY HISTORY: DVT. HOME MEDICATIONS: 1. Percocet 10 1 tablet p.o. b.i.d. 2. Aldactone 25 mg a day. 3. Zoloft 100 mg p.o. daily. 4. Nitrostat 0.4 sublingual q.5 p.r.n. 5. Zestril 2.5 mg q.h.s. 6. Imdur ER 50 mg p.o. daily. 7. Neurontin 300 mg p.o. t.i.d. 8. Plavix 75 mg p.o. daily. 9. Lipitor 80 mg q.h.s. 10.Aspirin 81 mg p.o. daily. 11.Xanax 1-2 tablets p.o. b.i.d. ALLERGY: TO LACTOSE. PHYSICAL EXAMINATION: VITAL SIGNS: Temperature 97.9, pulse 54, respirations 16, blood pressure 109/68, pulse ox 97% on room air. GENERAL APPEARANCE: Thin built, BMI 17.6, sitting up not in distress. EYES: Pupils are equal. Conjunctivae normal. HEENT: External appearance of nose and ears normal. Oral cavity normal. NECK: JVD not raised. Mass not palpable. RESPIRATORY effort normal. LUNGS: Slightly decreased breath sounds. CARDIOVASCULAR: 1st and 2nd sounds normal. No edema. ABDOMEN: Soft, nontender. Liver and spleen not palpable. LYMPHATICS: No lymph nodes palpable in the neck and axilla. PSYCHIATRY: Alert and oriented x3. Mood and affect normal. NEUROLOGICAL: Pupils equal. Cranial nerves grossly intact. Power and sensation grossly intact. INVESTIGATIONS: White count 18, hemoglobin 12.3, troponin 0.014, 0.024, 0.0200. EKG tracing personally reviewed by me shows sinus bradycardia and flipped T-waves in V1 to V3. ASSESSMENT: 1. Unstable angina in a patient with recent acute ST-elevation myocardial infarction, stent to the RCA, but has occlusion in the circumflex too per Dr. Beck's notes from recent admission. If the patient's symptoms were to persist, he may do coronary intervention. 2. Coronary artery disease with ST-elevation on August 11 with a stent to the RCA. 3. Chronic obstructive pulmonary disease in an ex-smoker. 4. Essential hypertension. 5. Primary osteoarthritis in multiple joints. 6. Ischemic cardiomyopathy EF 20% to 25%. PLAN: Home medications are resumed. Cardiology was consulted. Serial cardiac enzymes are in place. IV fluids started in the ER will be discontinued. The patient was seen by Dr. Bauer this morning. He did discontinue patient's heparin. Dose of nitrate was increased. I did discuss with the patient at length. I do want her to walk around and see how she does. If symptoms persist, then she may need to have further intervention. If no further symptoms, then possibly she can be discharged. Copy to Dr. Balaji Mitchell. MMODL / IJN: [id number] /
[2018-09-05] MEDS ORDERED: LISINOPRIL 2.5 MG TAB PO SCH (21:00)
[2018-09-05] MEDS ORDERED: ATORVASTATIN 80 MG TAB PO SCH (21:00)
[2018-09-06 06:19] LABS: Basophils % (A) 1 %; Eosinophils # (A) 0.6 k/uL (0-0.7); Eosinophils % (A) 9 %; HCT 40.2 % (34.0-46.0); HGB 12.7 gm/dL (11.4-16.0); Lymphocytes # (A) 1.8 k/uL (1.0-4.8); Lymphocytes % (A) 27 %; MCHC 31.6 g/dL (31.0-37.0); MCV 91.7 fL (80.0-100.0); Mean Platelet Volume 6.9; Monocytes # (A) 0.5 k/uL (0-1.0); Monocytes % (A) 8 %; Neutrophils # (A) 3.6 k/uL (1.3-7.7); Neutrophils % (A) 54 %; Platelet Count 210 k/uL (150-450); RBC 4.38 m/uL (3.80-5.40); RDW 13.6 % (11.5-15.5); WBC 6.7 k/uL (3.8-10.6)
[2018-09-06 06:29] LABS: Cholesterol 102 mg/dL (<200); HDL Cholesterol 43 mg/dL (40-60); LDL Cholesterol,Calculated 40 mg/dL (0-99); Triglycerides 96 mg/dL (<150)
[2018-09-06 08:28] VITALS: RESP 18
[2018-09-06] MEDS: ASPIRIN 81 MG PO SCH (08:51)
[2018-09-06] MEDS: SPIRONOLACTONE 25 MG TAB PO SCH (08:51)
[2018-09-06] MEDS: ALPRAZolam 0.25 MG TAB PO SCH (08:51)
[2018-09-06] MEDS: GABAPENTIN 300 MG CAP PO SCH (08:51)
[2018-09-06] MEDS: ISOSORBIDE MONONITRATE ER 30 MG TAB.ER.24H PO SCH (08:51)
[2018-09-06] MEDS: CLOPIDOGREL 75 MG TAB PO SCH (08:51)
[2018-09-06] MEDS: SERTRALINE 100 MG TAB PO SCH (08:52)
[2018-09-06] MEDS ORDERED: ASPIRIN 325 MG TAB PO SCH (09:00)
[2018-09-06 12:11] VITALS: BP 86/52; PULSE 60; TEMP 98.5
[2018-09-06] MEDS: oxyCODONE-APAP 10-325MG 1 EACH TAB PO PRN (12:45)
--- NOTE | 2018-09-06 13:08 | P.PN ---
Subjective This is a pleasant 57-year-old female past medical history significant for coronary artery disease status post recent stent placement to the RCA, hypertension, dyslipidemia and former nicotine dependence. She follows in the office with Dr. Brody. She was seen in consultation yesterday secondary to chest discomfort and Imdur was increased to 30 mg daily. She has had no further symptoms of chest discomfort. She is currently maintained on aspirin 81 mg daily, atorvastatin 80 mg daily, Plavix 75 mg daily, lisinopril 2.5 mg daily and Aldactone 25 mg daily. Blood pressure 99/55 heart rate 66 afebrile maintaining oxygen saturation on room air. Laboratory data reviewed, WBC 6.7, hemoglobin 12.7, platelets 210, LDL 40, HDL 43. GENERAL: Well-appearing, well-nourished and in no acute distress. NECK: Supple without JVD or thyromegaly. LUNGS: Breath sounds clear to auscultation bilaterally. Respiration equal and unlabored. No wheezes, rales or rhonchi. HEART: Regular rate and rhythm without murmurs, rubs or gallops. S1 and S2 heard. EXTREMITIES: Normal range of motion, no edema. No clubbing or cyanosis. Peripheral pulses intact. ASSESSMENT Chest pain, atypical for angina. An acute coronary event has been ruled out. Elevated lipase on admission, resolved. History of coronary artery disease status post stent placement to the RCA Ischemic cardiomyopathy Hypertension Dyslipidemia Former nicotine dependence PLAN Stable for discharge from a cardiac perspective. Follow up with Dr. Brody upon discharge. Nurse Practitioner note has been reviewed, I agree with a documented findings and plan of care. Patient was seen and examined. Objective - Vital Signs Vital signs: Vital Signs Temp 98.5 F 09/06/18 12:10 Pulse 60 09/06/18 12:10 Resp 18 09/06/18 12:10 BP 86/52 09/06/18 12:10 Pulse Ox 94 L 09/06/18 12:10 Intake & Output 09/05/18 09/06/18 09/06/18 18:59 06:59 18:59 Intake Total 960 477 Balance 960 477 Weight 43.545 kg Intake: Oral 960 477 Other: Voiding Method Toilet Toilet Toilet # Voids 1 1 - Labs CBC & Chem 7: 09/06/18 05:47 09/04/18 21:50
--- NOTE | 2018-09-07 05:35 | DS ---
DISCHARGE SUMMARY DATE OF ADMISSION: 09/05/2018 DATE OF DISCHARGE: 09/06/2018 FINAL DIAGNOSES: 1. Unstable angina in a patient with recent acute ST-elevation myocardial infarction with stent to the RCA. 2. Coronary artery disease with ST-elevation on August 11 with stent to the RCA. 3. Chronic obstructive pulmonary disease in an ex-smoker. 4. Essential hypertension. 5. Primary osteoarthritis in multiple joints. 6. Ischemic cardiomyopathy, ejection fraction 20% to 25%. HOSPITAL COURSE: This very pleasant lady with ST-elevation myocardial infarction on August 11 with stent to the RCA and chronic disease in circumflex, who was readmitted recently did have a cardiac catheterization and was decided to manage medically. Yet again presented with chest pain. Dose of Imdur was increased. Had no further chest pains. Up and about. Discussed with the patient. She does follow with Dr. Brody. On examination, temperature 98.5, pulse 60, respiration 18, blood pressure 86/52, pulse ox 94% on room air. LUNGS: Decreased breath sounds. CARDIOVASCULAR: First and second sounds normal. CONSULTATION: Dr. Bauer from Cardiology. INVESTIGATIONS: Troponin 0.014, 0.024, 0.020. LDL is 40. DISCHARGE MEDICATIONS: 1. Neurontin 300 mg p.o. t.i.d. 2. Zoloft 100 mg daily. 3. Aspirin 81 mg p.o. daily. 4. Lipitor 80 mg q.h.s. 5. Plavix 75 mg p.o. daily. 6. Nitrostat 0.4 sublingual q.5 p.r.n. 7. Zestril 2.5 mg q.h.s. 8. Percocet 10 one tablet p.o. b.i.d. 9. Xanax 1 to 2 tablets p.o. b.i.d. 10.Aldactone 25 mg daily. 11.Imdur ER 30 mg a day, new dose. Follow up with Dr. Brody in 1 week. Follow up with Dr. Mitchell in 1 week. MMRAMÓNL / ELANAN: [id number] /
== END 2018-09-06 13:05 | disposition home or self-care (01) ==
LOC: EC 21:35 → 1SOBS 09-05 00:17
PROVIDERS: ADMIT Hospitalist; ATTEND Hospitalist
DX: I25.110 Atherosclerotic heart disease of native coronary artery with unstable angina pectoris (principal); J44.9 Chronic obstructive pulmonary disease, unspecified; I10 Essential (primary) hypertension; R74.8 Abnormal levels of other serum enzymes; I25.2 Old myocardial infarction; G89.29 Other chronic pain; M54.5 Low back pain; E78.5 Hyperlipidemia, unspecified; E11.9 Type 2 diabetes mellitus without complications; I25.5 Ischemic cardiomyopathy; M19.91 Primary osteoarthritis, unspecified site; Z95.5 Presence of coronary angioplasty implant and graft; Z79.899 Other long term (current) drug therapy; Z79.82 Long term (current) use of aspirin; Z79.02 Long term (current) use of antithrombotics/antiplatelets; Z79.891 Long term (current) use of opiate analgesic; Z91.011 Allergy to milk products; Z86.19 Personal history of other infectious and parasitic diseases; Z87.891 Personal history of nicotine dependence; Z83.2 Family history of diseases of the blood and blood-forming organs and certain disorders involving the immune mechanism
CPT/HCPCS: 96366 ×2; 96376 ×2; 96365; 96375; 99291; 36415; 94760; 93005; 85379; 80061; 80053; 82150 ×2; 83690 ×2; 83735; 84484 ×2; 85025 ×3; 85610; 85730 ×2; 71046; G0378 ×2; J2270 ×2; J1644 ×2; J2405

== ENCOUNTER → 2019-03-11 | Outpatient (CLI) | payer OTHER ==
--- NOTE | 2019-03-12 03:23 | MR ---
EXAMINATION TYPE: MR lumbar spine wo/w con DATE OF EXAM: 03/11/2019 COMPARISON: None HISTORY: Low back pain, ddd TECHNIQUE: Multiplanar, multisequence images of the lumbar spine were acquired utilizing 5.5 mL intravenous Gada vist gadolinium contrast. Lumbar vertebra have normal alignment. Disc spaces are fairly normal for age. There is a small publishing editor ior disc bulge at L5-S1. There is developmentally adequate spinal canal. There is no spinal stenosis. Lumbar nerve roots appear fairly normal. The neuroforamina are fairly well-maintained. There is mini mal narrowing of the right side L5-S1 neural foramen due to disc bulging and facet arthropathy. There is no lumbar paraspinal mass. There is no compression fracture. I see no bony destructive proce ss. The contrast images show no pathologic enhancement. IMPRESSION: Mild posterior disc bulging at L5-S1. Minimal right side L5-S1 neural foraminal narrowing. No fractur e. No spinal stenosis.
== END | disposition home or self-care (01) ==
LOC: RADMRIMAIN 20:56
PROVIDERS: ATTEND Physical Medicine & Rehabilitation
DX: M48.07 Spinal stenosis, lumbosacral region (principal); M51.87 Other intervertebral disc disorders, lumbosacral region
CPT/HCPCS: 72158; A9585

== ENCOUNTER → 2019-06-08 | Outpatient (CLI) | payer OTHER ==
[2019-06-08 16:42] LABS: Basophils % (A) 1 %; Eosinophils # (A) 0.2 k/uL (0-0.7); Eosinophils % (A) 3 %; HCT 45.8 % (34.0-46.0); HGB 14.8 gm/dL (11.4-16.0); Lymphocytes # (A) 1.5 k/uL (1.0-4.8); Lymphocytes % (A) 23 %; MCH 29.6 pg (25.0-35.0); MCHC 32.3 g/dL (31.0-37.0); MCV 91.6 fL (80.0-100.0); Mean Platelet Volume 7.7; Monocytes # (A) 0.3 k/uL (0-1.0); Monocytes % (A) 5 %; Neutrophils # (A) 4.2 k/uL (1.3-7.7); Neutrophils % (A) 66 %; Platelet Count 204 k/uL (150-450); RDW 13.3 % (11.5-15.5); WBC 6.4 k/uL (3.8-10.6)
[2019-06-08 16:55] LABS: Mucus,Urine Rare /hpf; RBC,Urine 7 /hpf (0-5); Squamous Epithelial Cell,Urine 1 /hpf (0-4); WBC,Urine 2 /hpf (0-5)
[2019-06-08 17:02] LABS: Appearance,Urine Clear (Clear); Bilirubin,Urine 1+ (Negative); Blood,Urine Small (Negative); Color,Urine Yellow; Glucose,Urine (UA) Negative (Negative); Ketones,Urine Negative (Negative); Nitrite,Urine Negative (Negative); Protein,Urine 2+ (Negative); Specific Gravity,Urine 1.025 (1.001-1.035)
[2019-06-08 17:03] LABS: Leukocyte Esterase,Urine Negative (Negative)
[2019-06-08 22:15] LABS: Erythrocyte Sedimentation Rate 2 mm/hr (0-20)
[2019-06-09 01:38] LABS: ALT 9 U/L (8-44); AST 16 U/L (13-35); African American GFR (CKD) 92.9 (60.0-200.0); Albumin/Globulin Ratio 3.21 (1.60-3.17); Alkaline Phosphatase 54 U/L (41-126); C Reactive Protein <0.4 mg/dL (0.0-0.8); Calcium 9.3 mg/dL (8.7-10.3); Carbon Dioxide 24.5 mmol/L (21.6-31.8); Chloride 109 mmol/L (96-109); Chol/HDL Ratio 5.46; Cholesterol 224 mg/dL (0-200); Globulin 1.4 g/dL (1.6-3.3); Glucose 100 mg/dL (70-110); LDL Cholesterol,Calculated 142.2 mg/dL (0.0-131.0); Non-African American GFR(CKD) 80.1 (60.0-200.0); Potassium 4.2 mmol/L (3.5-5.5); Rheumatoid Factor, Qnt 8 IU/mL (0-15); Sodium 141 mmol/L (135-145); Total Bilirubin 0.3 mg/dL (0.3-1.2); Total Protein 5.9 g/dL (6.2-8.2)
[2019-06-09 06:55] LABS: Cyclic Citrull Pep IgG Unit <0.5 U/mL; Cyclic Citrullinated Pep IgG NEGATIVE (NEGATIVE)
== END | disposition home or self-care (01) ==
LOC: LABWHC1 15:14
PROVIDERS: ATTEND Internal Medicine
DX: I10 Essential (primary) hypertension (principal); M25.50 Pain in unspecified joint; E55.9 Vitamin D deficiency, unspecified
CPT/HCPCS: 36415; 80053; 80061; 81001; 82306; 85025; 85652; 86038; 86140; 86200; 86431; 86618; 87522

== ENCOUNTER 2020-11-17 17:33 | Emergency (ER) | payer OTHER ==
[2020-11-17 17:40] VITALS: RESP 18
--- NOTE | 2020-11-17 17:58 | ED ---
Abdominal Pain HPI - General Chief Complaint: Abdominal Pain Stated Complaint: abd pain/vomiting Time Seen by Provider: 11/17/20 17:47 Source: patient Mode of arrival: ambulatory Limitations: no limitations - History of Present Illness Initial Comments: 60-year-old female with history of hepatitis C presents emergency Department with a chief complaint abdominal pain nausea vomiting. Patient reports she has been experiencing pain in the left upper quadrant/left flank region ever since 2011 when she underwent treatment for hepatitis C. States the pain is intermittent, not postprandial. States over the last 4 months she is also developed intermittent nausea with vomiting. He states her lacerations also developed nonbloody diarrhea. States she has been experiencing mild dysuria and has history of hematuria that has not been further investigated by her primary care. She denies any fevers or chills. Denies any vaginal symptoms or back pain. - Related Data Home Medications Medication Instructions Recorded Confirmed Sertraline [Zoloft] 150 mg PO DAILY 08/11/18 07/04/20 Spironolactone [Aldactone] 25 mg PO DAILY 09/04/18 07/04/20 Levothyroxine Sodium [Synthroid] 100 mcg PO DAILY 07/04/20 07/04/20 Previous Rx's Medication Instructions Recorded Aspirin 81 mg PO DAILY chew 08/14/18 lisinopriL [Zestril] 2.5 mg PO HS #30 tab 08/20/18 Allergies Allergy/AdvReac Type Severity Reaction Status Date / Time lactose AdvReac Nausea & Verified 07/04/20 14:53 Vomiting & Diarrhea Review of Systems ROS Statement: Those systems with pertinent positive or pertinent negative responses have been documented in the HPI. ROS Other: All systems not noted in ROS Statement are negative. Past Medical History Past Medical History: Hypertension, Myocardial Infarction (AL), Thyroid Disorder Additional Past Medical History / Comment(s): Hepatitis C, chronic back pain Last Myocardial Infarction Date:: 08/11/18 History of Any Multi-Drug Resistant Organisms: None Reported Past Surgical History: Heart Catheterization With Stent, Hysterectomy, Tonsillectomy Additional Past Surgical History / Comment(s): liver biopsy. COLONOSCOPY. Stent mid RCA on 08/12 Past Anesthesia/Blood Transfusion Reactions: No Reported Reaction Date of Last Stent Placement:: 08/12/2018 Past Psychological History: Anxiety, Depression Smoking Status: Current every day smoker Past Drug Use History: Marijuana - Past Family History Father Family Medical History: Deep Vein Thrombosis (DVT) General Exam Limitations: no limitations General appearance: alert, in no apparent distress Head exam: Present: atraumatic, normocephalic, normal inspection Eye exam: Present: normal appearance, PERRL, EOMI Pupils: Present: normal accommodation ENT exam: Present: normal exam, normal oropharynx, mucous membranes moist Neck exam: Present: normal inspection, full ROM. Absent: tenderness Respiratory exam: Present: normal lung sounds bilaterally. Absent: respiratory distress Cardiovascular Exam: Present: regular rate, normal rhythm, normal heart sounds. Absent: systolic murmur GI/Abdominal exam: Present: soft, tenderness (Left upper quadrant), normal bowel sounds. Absent: distended, guarding, rebound, rigid Extremities exam: Present: normal inspection, full ROM, normal capillary refill. Absent: tenderness, pedal edema, joint swelling Back exam: Present: normal inspection, full ROM. Absent: tenderness, CVA tenderness (R), CVA tenderness (L) Neurological exam: Present: alert, oriented X3 Psychiatric exam: Present: normal affect, normal mood Skin exam: Present: warm, dry, intact, normal color Course Vital Signs 11/17/20 17:37 Temperature 98.0 F Pulse Rate 97 Respiratory 18 Rate Blood Pressure 150/111 O2 Sat by Pulse 97 Oximetry Medical Decision Making - Medical Decision Making 60-year-old female with history of hepatitis C presents emergency Department with a chief complaint abdominal pain nausea vomiting. On physical examination, left upper quadrant tenderness. Seems this patient has been experiencing these symptoms for quite some time. CBC is unremarkable CMP shows no acute findings. UA reveals hematuria, however the patient has been aware this symptom and states the primary care is keeping an eye on it. CT of the abdomen and pelvis shows no acute findings. Here he has an appointment on November [address] Botello. Strict return parameters were thoroughly discussed the patient is an attending agreeable. Case discussed with Dr. Mack - Lab Data Result diagrams: 11/17/20 18:05 11/17/20 18:05 Lab Results 11/17/20 11/17/20 11/17/20 Range/Units 18:05 18:05 18:05 WBC 8.6 (3.8-10.6) k/uL RBC 5.39 (3.80-5.40) m/uL Hgb 16.7 H (11.4-16.0) gm/dL Hct 48.5 H (34.0-46.0) % MCV 89.9 (80.0-100.0) fL MCH 30.9 (25.0-35.0) pg MCHC 34.4 (31.0-37.0) g/dL RDW 13.2 (11.5-15.5) % Plt Count 222 (150-450) k/uL MPV 7.6 Neutrophils % 66 % Lymphocytes % 25 % Monocytes % 5 % Eosinophils % 1 % Basophils % 1 % Neutrophils # 5.7 (1.3-7.7) k/uL Lymphocytes # 2.2 (1.0-4.8) k/uL Monocytes # 0.5 (0-1.0) k/uL Eosinophils # 0.1 (0-0.7) k/uL Basophils # 0.1 (0-0.2) k/uL Sodium 135 L (137-145) mmol/L Potassium 3.5 (3.5-5.1) mmol/L Chloride 104 (98-107) mmol/L Carbon Dioxide 21 L (22-30) mmol/L Anion Gap 10 mmol/L BUN 11 (7-17) mg/dL Creatinine 0.73 (0.52-1.04) mg/dL Est GFR (CKD-EPI)AfAm >90 (>60 ml/min/1.73 sqM) Est GFR (CKD-EPI)NonAf 89 (>60 ml/min/1.73 sqM) Glucose 125 H (74-99) mg/dL Calcium 9.9 (8.4-10.2) mg/dL Total Bilirubin 0.5 (0.2-1.3) mg/dL AST 20 (14-36) U/L ALT 10 (4-34) U/L Alkaline Phosphatase 66 (38-126) U/L Troponin I (0.000-0.034) ng/mL Total Protein 7.0 (6.3-8.2) g/dL Albumin 4.4 (3.5-5.0) g/dL Amylase 43 (30-110) U/L Lipase 62 (23-300) U/L Urine Color Yellow Urine Appearance Clear (Clear) Urine pH 6.0 (5.0-8.0) Ur Specific [place] 1.012 (1.001-1.035) Urine Protein 2+ H (Negative) Urine Glucose (UA) Negative (Negative) Urine Ketones Negative (Negative) Urine Blood Moderate H (Negative) Urine Nitrite Negative (Negative) Urine Bilirubin Negative (Negative) Urine Urobilinogen 2.0 (<2.0) mg/dL Ur Leukocyte Esterase Trace H (Negative) Urine RBC 4 (0-5) /hpf Urine WBC 7 H (0-5) /hpf Ur Squamous Epith Cells 1 (0-4) /hpf Urine Bacteria Rare H (None) /hpf Hyaline Casts 1 (0-2) /lpf Urine Mucus Rare H (None) /hpf 11/17/20 Range/Units 18:05 WBC (3.8-10.6) k/uL RBC (3.80-5.40) m/uL Hgb (11.4-16.0) gm/dL Hct (34.0-46.0) % MCV (80.0-100.0) fL MCH (25.0-35.0) pg MCHC (31.0-37.0) g/dL RDW (11.5-15.5) % Plt Count (150-450) k/uL MPV Neutrophils % % Lymphocytes % % Monocytes % % Eosinophils % % Basophils % % Neutrophils # (1.3-7.7) k/uL Lymphocytes # (1.0-4.8) k/uL Monocytes # (0-1.0) k/uL Eosinophils # (0-0.7) k/uL Basophils # (0-0.2) k/uL Sodium (137-145) mmol/L Potassium (3.5-5.1) mmol/L Chloride (98-107) mmol/L Carbon Dioxide (22-30) mmol/L Anion Gap mmol/L BUN (7-17) mg/dL Creatinine (0.52-1.04) mg/dL Est GFR (CKD-EPI)AfAm (>60 ml/min/1.73 sqM) Est GFR (CKD-EPI)NonAf (>60 ml/min/1.73 sqM) Glucose (74-99) mg/dL Calcium (8.4-10.2) mg/dL Total Bilirubin (0.2-1.3) mg/dL AST (14-36) U/L ALT (4-34) U/L Alkaline Phosphatase (38-126) U/L Troponin I 0.014 (0.000-0.034) ng/mL Total Protein (6.3-8.2) g/dL Albumin (3.5-5.0) g/dL Amylase (30-110) U/L Lipase (23-300) U/L Urine Color Urine Appearance (Clear) Urine pH (5.0-8.0) Ur Specific [place] (1.001-1.035) Urine Protein (Negative) Urine Glucose (UA) (Negative) Urine Ketones (Negative) Urine Blood (Negative) Urine Nitrite (Negative) Urine Bilirubin (Negative) Urine Urobilinogen (<2.0) mg/dL Ur Leukocyte Esterase (Negative) Urine RBC (0-5) /hpf Urine WBC (0-5) /hpf Ur Squamous Epith Cells (0-4) /hpf Urine Bacteria (None) /hpf Hyaline Casts (0-2) /lpf Urine Mucus (None) /hpf - EKG Data EKG Comments: Sinus rhythm without acute ischemic changes Ventricular rate 76, NE 138, QRS 78, QTC 447. Disposition Clinical Impression: Abdominal pain, Nausea & vomiting Disposition: HOME SELF-CARE Condition: Stable Instructions (If sedation given, give patient instructions): Abdominal Pain (ED) Additional Instructions: Please return to the Emergency Department if symptoms worsen or any other concerns. Is patient prescribed a controlled substance at d/c from ED?: No Referrals: Elise Rhodes MD [Primary Care Provider] - 1-2 days Time of Disposition: 19:58
[2020-11-17] MEDS: SODIUM CHLORIDE 0.9% 1,000 ML IV STA (18:19)
[2020-11-17] MEDS: FAMOTIDINE 20 MG/2 ML VIAL IV STA (18:21)
[2020-11-17 18:22] LABS: Appearance,Urine Clear (Clear); Bacteria,Urine Rare /hpf; Bilirubin,Urine Negative (Negative); Blood,Urine Moderate (Negative); Color,Urine Yellow; Glucose,Urine (UA) Negative (Negative); Hyaline Casts,Urine 1 /lpf (0-2); Ketones,Urine Negative (Negative); Leukocyte Esterase,Urine Trace (Negative); Mucus,Urine Rare /hpf; Nitrite,Urine Negative (Negative); Protein,Urine 2+ (Negative); RBC,Urine 4 /hpf (0-5); Specific Gravity,Urine 1.012 (1.001-1.035); Squamous Epithelial Cell,Urine 1 /hpf (0-4); WBC,Urine 7 /hpf (0-5)
[2020-11-17] MEDS: KETOROLAC 15 MG/ML 1 ML VIAL IVP STA (18:22)
[2020-11-17] MEDS: ONDANSETRON 4 MG/2 ML VIAL IVP STA (18:23)
[2020-11-17 18:26] LABS: Basophils # (A) 0.1 k/uL (0-0.2); Basophils % (A) 1 %; Eosinophils # (A) 0.1 k/uL (0-0.7); Eosinophils % (A) 1 %; HCT 48.5 % (34.0-46.0); HGB 16.7 gm/dL (11.4-16.0); Lymphocytes # (A) 2.2 k/uL (1.0-4.8); Lymphocytes % (A) 25 %; MCH 30.9 pg (25.0-35.0); MCHC 34.4 g/dL (31.0-37.0); MCV 89.9 fL (80.0-100.0); Mean Platelet Volume 7.6; Monocytes # (A) 0.5 k/uL (0-1.0); Monocytes % (A) 5 %; Neutrophils # (A) 5.7 k/uL (1.3-7.7); Neutrophils % (A) 66 %; Platelet Count 222 k/uL (150-450); RBC 5.39 m/uL (3.80-5.40); RDW 13.2 % (11.5-15.5); WBC 8.6 k/uL (3.8-10.6)
[2020-11-17 18:37] LABS: ALT 10 U/L (4-34); AST 20 U/L (14-36); African American GFR (CKD) >90 (>60 ml/min/1.73 sqM); Albumin 4.4 g/dL (3.5-5.0); Alkaline Phosphatase 66 U/L (38-126); Amylase 43 U/L (30-110); Anion Gap 10 mmol/L; Blood Urea Nitrogen 11 mg/dL (7-17); Calcium 9.9 mg/dL (8.4-10.2); Carbon Dioxide 21 mmol/L (22-30); Chloride 104 mmol/L (98-107); Glucose 125 mg/dL (74-99); Lipase 62 U/L (23-300); Non-African American GFR(CKD) 89 (>60 ml/min/1.73 sqM); Potassium 3.5 mmol/L (3.5-5.1); Sodium 135 mmol/L (137-145); Total Bilirubin 0.5 mg/dL (0.2-1.3)
--- NOTE | 2020-11-17 19:40 | CT ---
EXAMINATION TYPE: CT abdomen pelvis w con DATE OF EXAM: 11/17/2020 COMPARISON: 11/30/2017 HISTORY: LLQ pain CT DLP: 536 mGycm Automated exposure control for dose reduction was used. CONTRAST: Performed with IV Contrast, patient injected with 100 mL of Isovue 300. Lung bases are clear of infiltrate. There is minimal subsegmental atelectasis at the right lung base. There is no pleural effusion. Heart size is normal. There is no pericardial effusion. Liver spleen stomach pancreas gallbladder appear intact. Bile ducts are not dilated. There is no adrenal mass. Kidneys show satisfactory contrast opacification. There is no hydronephrosi s. Ureters are not dilated. There is no retroperitoneal adenopathy. Bladder distends smoothly. There are multiple sigmoid diverticula. There is no diverticulitis. There is no mesenteric edema. There is no ascites or free air. There is no bowel obstruction. There i s 1.3 cm left side pelvic calcification adjacent to the urinary bladder. This could be a fecalith. Th ere is normal size appendix. There is probably appendicolith. The lumbar vertebra have normal alignment. There is vacuum disc at L5-S1. There is no compression fra cture. The bony pelvis is intact. The hip joints are intact. There is no hip dysplasia. IMPRESSION: Colonic diverticulosis without diverticulitis. Appendicolith. No sign of appendicitis. There is mild subsegmental atelectasis right lung base that appears new compared to old exam. There is overall no adverse change compared to old exam.
[2020-11-17 20:27] VITALS: BP 170/90; PULSE 71; TEMP 98.4
== END 2020-11-17 20:28 | disposition home or self-care (01) ==
LOC: EC 17:33
DX: R10.12 Left upper quadrant pain (principal); R11.2 Nausea with vomiting, unspecified; R30.0 Dysuria; R19.7 Diarrhea, unspecified; I10 Essential (primary) hypertension; I25.2 Old myocardial infarction; F32.9 Major depressive disorder, single episode, unspecified; F41.9 Anxiety disorder, unspecified; F17.200 Nicotine dependence, unspecified, uncomplicated; F12.90 Cannabis use, unspecified, uncomplicated; Z79.82 Long term (current) use of aspirin
CPT/HCPCS: 36415; 74177; 80053; 81001; 82150; 83690; 84484; 85025; 93005; 96361; 96374; 96375; 99284

== ENCOUNTER → 2021-05-14 | Outpatient (CLI) | payer OTHER ==
--- NOTE | 2021-05-15 06:56 | MR ---
EXAMINATION TYPE: MR lumbar spine wo con DATE OF EXAM: 05/14/2021 COMPARISON: CT abdomen and pelvis November 17, 2020 HISTORY: Low back pain that radiates down right leg for 6 months TECHNIQUE: Multiplanar, multisequence imaging of the lumbar spine is performed without IV contrast. FINDINGS: Sagittal images of the lumbar spine show vertebral body heights and alignment to remain sat isfactory. Multilevel disc desiccation is present. There is moderate disc space narrowing at L5-S1 le virgil redemonstrated. There is heterogeneous Modic type II endplate changes anteriorly. The conus medu llaris is somewhat low in position ending mid to inferior L2 level. No abnormal signal is present. No suspicious clumping of lumbosacral nerve roots identified. The bone marrow signal intensity is withi n normal limits. Axial images at T12-L1 and L1-L2 levels show mild facet arthropathy bilaterally otherwise within norm al limits. Axial images at L2-L3 level appear within normal limits. Axial images at L3-L4 level show mild facet arthropathy bilaterally. Axial images at L4-L5 level show [id number] facet arthropathy and ligamentum flavum hypertrophy effacing the posterior lateral thecal sac. Patent bilateral neural foramina. No significant disc her niation. Axial images at L5-S1 level show moderate facet arthropathy bilaterally. There is tiny central disc p rotrusion minimally effaces the anterior thecal sac. There is additional right foraminal disc protrus ion component causing asymmetric moderate right-sided neural foraminal narrowing seen best sagittal i mage 13 corresponding to axial image 4. Left-sided neural foramen is patent. Paraspinal muscle bulk is preserved. Intraluminal gallstones noted within gallbladder on MRI are not clearly seen on CT. They are new from 2015 MRCP. IMPRESSION: Multilevel degenerative changes as detailed above, attention to L5-S1 level where right f oraminal disc herniation causes asymmetric moderate right-sided neural foraminal narrowing and is mateus pected effacing the anterior inferior right L5 nerve accounting for patient's clinical symptoms. New gallstones are also incidentally noted.
== END | disposition home or self-care (01) ==
LOC: RADMRIMAIN 16:28
PROVIDERS: ATTEND Psychiatry & Neurology Neurology
DX: M51.17 Intervertebral disc disorders with radiculopathy, lumbosacral region (principal); M47.27 Other spondylosis with radiculopathy, lumbosacral region; K80.20 Calculus of gallbladder without cholecystitis without obstruction
CPT/HCPCS: 72148

== ENCOUNTER → 2022-01-02 | Outpatient (CLI) | payer OTHER ==
--- NOTE | 2022-01-02 12:39 | CT ---
EXAMINATION TYPE: CT angio neck DATE OF EXAM: 01/02/2022 COMPARISON: None HISTORY: 61-year-old female I65.29, Occlusion/stenosis TECHNIQUE: Contiguous axial scanning of the neck performed with IV Contrast, patient injected with 65 mL of Isovue 370. Coronal/sagittal MIP reconstructions performed. 3-D reconstructions generated on a dedicated independent workstation. CT DLP: 170.5 mGycm Automated exposure control for dose reduction was used. FINDINGS: Bovine configuration to the aortic arch. Mild to moderate atherosclerotic plaque at the proximal aspe ct of the arch vessels causing mild uniform narrowing of the proximal left subclavian and brachioceph alic artery. The left vertebral artery is minimally more dominant but both vessels are patent throughout their cer vical course. There is focal mild to moderate atherosclerotic narrowing at the proximal V4 segment intracranial lef t great artery Moderate atherosclerotic calcifications of the left carotid siphon with focal severe stenosis cervica l supraclinoid left ICA and moderate extending to the level of the left carotid terminus. There is mo derate focal narrowing at the proximal portion of the left cavernous segment. There is nonvisualizati on of the A1 segment left anterior cerebral artery possibly congenitally hypoplastic. There is a 4 x 4 mm saccular aneurysm projecting inferiorly from the anterior communicating artery in cidentally noted. Moderate atherosclerotic plaque left greater than right carotid bifurcations. There is mild, less than 40% narrowing at the right carotid bulb by NASCET criteria. Remainder of the right ICA remains patent. There is more severe, just over 70% narrowing proximal left ICA at the level of the distal bulb by NA SCET criteria. Underlying emphysematous change in the visualized upper lungs. IMPRESSION: 1. SEVERE, JUST OVER 70% PROXIMAL LEFT ICA STENOSIS. MILD, LESS THAN 40% NARROWING PROXIMAL RIGHT ICA . 2. INCIDENTAL 4 MM SACCULAR ANEURYSM PROJECTING INFERIORLY FROM THE ANTERIOR COMMUNICATING ARTERY. 3. INCIDENTAL SEVERE FOCAL STENOSIS SUPRACLINOID LEFT ICA AND MODERATE NARROWING EXTENDING DISTALLY T O THE LEFT CAROTID TERMINUS. ADDITIONAL MODERATE FOCAL STENOSIS PROXIMAL PORTION OF THE CAVERNOUS SEG MENT LEFT ICA. 4. 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 5. MILD TO MODERATE FOCAL STENOSIS PROXIMAL V4 SEGMENT LEFT VERTEBRAL ARTERY.
== END | disposition home or self-care (01) ==
LOC: RADCTMAIN 10:04
PROVIDERS: ATTEND Internal Medicine Clinical Cardiac Electrophysiology
DX: I65.23 Occlusion and stenosis of bilateral carotid arteries (principal); I70.202 Unspecified atherosclerosis of native arteries of extremities, left leg
CPT/HCPCS: 70498; Q9967

== ENCOUNTER → 2022-02-05 | Outpatient (CLI) | payer OTHER ==
[2022-02-05 18:01] LABS: HCT 45.5 % (37.2-46.3); HGB 14.9 g/dL (12.0-15.0); MCH 29.9 pg (27.0-32.0); MCHC 32.7 g/dL (32.0-37.0); MCV 91.4 fL (80.0-97.0); Mean Platelet Volume 10.2 fL (9.5-12.2); NRBC Per 100 WBC 0 /100 WBCS (0.0-0.0); Platelet Count 256 X 10*3/uL (140-440); RBC 4.98 X 10*6/uL (4.10-5.20); RDW 13.4 % (11.5-14.5); WBC 8.07 X 10*3/uL (4.50-10.00)
[2022-02-05 18:12] LABS: African American GFR (CKD) 57.4 (60.0-200.0); Anion Gap 11.2 mmol/L (10.00-18.00); Blood Urea Nitrogen 16.2 mg/dL (9.0-27.0); Non-African American GFR(CKD) 49.6 (60.0-200.0); Potassium 4.9 mmol/L (3.5-5.5)
== END | disposition home or self-care (01) ==
LOC: LABPAT 12:13
PROVIDERS: ATTEND Internal Medicine Interventional Cardiology
DX: Z01.812 Encounter for preprocedural laboratory examination (principal); I65.23 Occlusion and stenosis of bilateral carotid arteries
CPT/HCPCS: 80051; 82565; 84520; 85027

== ENCOUNTER 2022-02-12 07:18 | Inpatient (IN) | payer OTHER ==
[~2022-02-12 07:18] MED LIST: ALPRAZolam 0.5 MG TAB PO PRN; ASPIRIN 325 MG TAB PO PRN; CLOPIDOGREL 75 MG TAB PO PRN; NITROGLYCERIN SL TABS 0.4 MG TAB SUBLINGUAL PRN; SODIUM CHLORIDE 0.9% 1,000 ML in EMPTY BAG 1 BAG IV ONE; ceFAZolin 2 GM in SODIUM CHLORIDE 0.9% 500 ML 500 ML IRRIGATION PRN
[2022-02-12] MEDS ORDERED: SODIUM CHLORIDE 0.9% 1,000 ML IV ONE ×2 (07:30→10:36)
[2022-02-12] MEDS ORDERED: CLOPIDOGREL 75 MG TAB ONE (10:33)
[2022-02-12] MEDS ORDERED: CLOPIDOGREL 75 MG TAB PO ONE (10:40)
[2022-02-12] MEDS ORDERED: LIDOCAINE 1% INJ 10MG/ML (30 ML VIAL-PF) SQ ONE (10:45)
[2022-02-12] MEDS ORDERED: fentaNYL (PF) 50 MCG/ML 2 ML AMP ONE (10:49)
[2022-02-12] MEDS ORDERED: fentaNYL (PF) 50 MCG/ML 2 ML AMP IV ONE (10:50)
[2022-02-12] MEDS ORDERED: HEPARIN SODIUM 1,000 UN/ML (10ML VL) ONE (10:56)
[2022-02-12] MEDS ORDERED: HEPARIN SODIUM 1,000 UN/ML (10ML VL) IVP ONE ×2 (10:56→10:57)
[2022-02-12] MEDS ORDERED: PHENYLEPHRINE 10 MG/ML VIAL IV ONE (11:06)
[2022-02-12] MEDS ORDERED: PHENYLEPHRINE-0.9% NACL SYG 1,000 MCG/10 ML SYRINGE IV ONE (11:06)
[2022-02-12] MEDS ORDERED: ATROPINE SULFATE 0.1 MG/ML 10ML SYRINGE IVP ONE (11:07)
[2022-02-12] MEDS ORDERED: DOPamine DRIP 800 MG in DEXTROSE/WATER 1 250ML.BAG IV ONE (11:07)
[2022-02-12] MEDS ORDERED: fentaNYL (PF) 50 MCG/ML 2 ML AMP IVP ONE (11:12)
[2022-02-12] MEDS ORDERED: ONDANSETRON 4 MG/2 ML VIAL ONE (11:20)
[2022-02-12] MEDS ORDERED: ONDANSETRON 4 MG/2 ML VIAL IVP ONE (11:24)
[2022-02-12] MEDS ORDERED: MIDAZOLAM 2 MG/2 ML VIAL IVP ONE ×2 (11:24→11:32)
[2022-02-12] MEDS ORDERED: hydrALAZINE HCL 20 MG/ML 1 ML VIAL ONE (11:24)
[2022-02-12] MEDS ORDERED: hydrALAZINE HCL 20 MG/ML 1 ML VIAL IVP ONE (11:25)
[2022-02-12] MEDS ORDERED: niCARdipine 25 MG/10 ML VIAL ONE (11:28)
[2022-02-12] MEDS ORDERED: MORPHINE SULFATE 4 MG/ML SYRINGE ONE (11:30)
[2022-02-12] MEDS ORDERED: niCARdipine 25 MG/10 ML VIAL INTRACORON ONE (11:32)
[2022-02-12] MEDS ORDERED: fentaNYL (PF) 50 MCG/1 ML VIAL IVP ONE (11:32)
[2022-02-12] MEDS ORDERED: niCARdipine Syringe (1,000 mcg/10 mL) INTRACORON ONE (11:32)
[2022-02-12] MEDS ORDERED: NITROGLYCERIN 1000MCG/10ML SYRINGE INTRACORON ONE (11:32)
[2022-02-12] MEDS ORDERED: METOPROLOL TARTRATE 5 MG/5 ML VIAL IVP ONE (11:34)
[2022-02-12] MEDS ORDERED: IOPAMIDOL-370 125ML BTL INJ ONE (11:59)
[2022-02-12] MEDS ORDERED: NITROGLYCERIN SL TABS 0.4 MG TAB SUBLINGUAL PRN (12:11)
[2022-02-12] MEDS ORDERED: ATROPINE SULFATE 0.1 MG/ML 10ML SYRINGE IV PRN (12:11)
[2022-02-12] MEDS ORDERED: MAG HYDROX/AL HYDROX/SIMETH 30 ML CUP PO PRN (12:11)
[2022-02-12] MEDS ORDERED: ZOLPIDEM 5 MG TAB PO PRN (12:11)
[2022-02-12] MEDS ORDERED: RX INFO: IV CONTRAST WAS GIVEN 1 EACH MISC MISCELLANE PRN (12:11)
[2022-02-12] MEDS ORDERED: SODIUM CHLORIDE 0.9% 1,000 ML in EMPTY BAG 1 BAG IV SCH (12:15)
[2022-02-12 12:35] LABS: Glucose,Whole Blood 103 mg/dL (70-110)
--- NOTE | 2022-02-12 12:38 | P.PCN ---
Date of Procedure: 02/12/22 Operative Findings: CARDIAC CATHETERIZATION AND PERCUTANEOUS CORONARY INTERVENTION PERFORMING PHYSICIAN: Luciano Beck MD, [facility] PROCEDURE PERFORMED: 1. Selective right and left coronary angiogram 2. Successful stenting of distal right coronary artery using 2.75 x 38 mm Xience DAVIDE with an excellent angiographic results 3. Successful stenting of the mid right coronary artery using 3.0 x 33 mm Xience DAVIDE with an excellent angiographic results 4. An aspiration thrombectomy from the right coronary artery 5. Intravascular ultrasound of the right coronary artery 6. Selective right common femoral artery angiogram 7. An aortic arch angiogram 8. Ultrasound-guided access of the right common femoral artery 9. Successful placement of transferred venous pacemaker from right femoral vein INDICATION: This is a 61-year-old female patient was coronary artery disease and prior stenting of the RCA as well as hypertension and dyslipidemia and smoking was diagnosed recently with critical disease involving the left internal carotid artery. That was documented by a CTA of the carotid. She was brought today to undergo stenting of the left internal carotid artery but at the beginning of the procedure she started experiencing chest discomfort and she developed cardiac arrest. The EKG showed ST segment elevation inferiorly. At that point the carotids stent was aborted and we decided to pursue with a heart catheterization emergently and stenting of the right coronary artery. COMPLICATION: None APPROACH: Right common femoral artery Right common femoral vein LEVEL OF SEDATION: Moderate with the sedation time off 78 minutes PROCEDURE DESCRIPTION: After obtaining an informed consent the patient was brought to the cardiac catheter finisher and inspector. The right common femoral artery was cannulated using puncture technique under ultrasound guidance, the micropuncture wire passed easily then I place a 6-Namibian 90 cm sheath at the right common femoral artery and the sheath was advanced all the way to the ascending aorta under fluoroscopy guidance. At that point I did an aortic arch angiogram using a 6-Namibian pigtail catheter. That was performed under digital subselection and using a poor injection. Subsequently the patient started experiencing chest discomfort/burning sensation in the chest. Immediately after that she developed severe bradycardia with heart rate in the 30s and then cardiac arrest for about a few seconds. Upon initiating CPR the patient woke up and her heart rate improved and the pressure improved as well. The EKG revealed ST segment elevation inferiorly. In the light of that an emergent heart catheterization was advised. I did exchange my long sheath into short sheath over 035 wire and also I did place a temporary pacemaker from right groin approach. The procedure was completed without any complication. SELECTIVE CORONARY ANGIOGRAM: The right coronary artery: Large caliber vessel and dominant vessel. The RCA approximately is a stented with mild in-stent restenosis. The mid RCA and distal RCA are occluded with a large thrombus burden. The RCA distally trifurcated into 3 subbranches was mild to moderate diffuse disease in these branches. Left main: Large caliber vessel and long left main was mild disease only. Bifurcates into an LCx and LAD The left circumflex: Medium caliber vessel nondominant vessel. The LCx has intermediate disease only. The LCx gives rises into a small OM branch which has intermediate lesion. The left anterior descending artery: Moderate caliber vessel. The LAD has mild disease in the proximal portion by the bifurcation of a large diagonal branch which seems to be angiographically normal. In the midportion the LAD also has mild disease only by the bifurcation of second diagonal branch which has mild disease only. The LAD after that become medium caliber vessel was diffuse disease all the way to the apex. PCI OF THE RCA: Anticoagulation was initiated using heparin with continuous ACT monitoring. Subsequently after placement of the transvenous pacer from the right groin approach I did engage the right coronary artery is a JR4 guiding catheter. I did wire the RCA using a run-through wire and the wire was advanced all the way to the PDA of RCA. Balloon angioplasty was done using 2.5 x 15 mm balloon. An angiogram after that showed no flow in the RCA in the mid and distal portion. Large thrombus burden was identified. Aspiration thrombectomy was attempted but the catheter would not cross the mid RCA so we did aspiration only from the proximal RCA. After that balloon angioplasty again was attempted using this time 2.5 x 20 mm balloon. I did balloon angioplasty in the PDA branch of the RCA as well as distal as well as mid RCA. With that I was able to restore the flow. Subsequently I did a stent in the distal right coronary artery using 2.75 x 38 mm stent where the stent was positioned under fluoroscopy guidance and deployed under 12 lamont for 20 seconds. And I did place in the mid right coronary artery 3.0 x 33 mm another DAVIDE and the with about 2 mm overlap between the first and second stents and the second stent was deployed under 14 lamont for 20 seconds. The following angiogram showed that an area inside the stent was not well opened. At that point I decided to post dilated using this time 3.0 x 15 mm noncompliant balloon and the balloon was inflated under 22 lamont to we able to open the stent out. Intravascular ultrasound was performed and showed that the stent was well opposed to the wall. The procedure was completed without any complication CONCLUSION: #[address] patient myocardial infarction complicated by severe bradycardia and cardiac arrest #2 acute total occlusion of the mid and distal right coronary artery was large thrombus burden. Successful stenting of the RCA in the mid and distal portion was performed with NISHANT-3 flow #3 mild to moderate diffuse disease involving the left coronary system POSTPROCEDURE MANAGEMENT: #1 dual antiplatelet therapy using aspirin and Plavix for at least 12 months #2 aggressive cholesterol control #3 follow-up with the patient
[2022-02-12] MEDS: ALPRAZolam 0.25 MG TAB PO PRN (15:21)
[2022-02-12] MEDS: HYDROcodone/APAP 7.5-325MG 1 EACH TAB PO PRN ×2 (15:21→22:05)
[2022-02-12] MEDS: NICOTINE 14MG/24HR PATCH TRANSDERM SCH (16:40)
[2022-02-12] MEDS: GABAPENTIN 300 MG CAP PO SCH ×2 (16:40→22:05)
[2022-02-12] MEDS: ATORVASTATIN 20 MG TAB PO SCH (20:02)
[2022-02-13] MEDS: ALPRAZolam 0.25 MG TAB PO PRN ×2 (04:42→14:30)
[2022-02-13 05:16] LABS: African American GFR (CKD) >90 (>60 ml/min/1.73 sqM); Anion Gap 9 mmol/L; Blood Urea Nitrogen 10 mg/dL (7-17); Carbon Dioxide 20 mmol/L (22-30); Chloride 109 mmol/L (98-107); Glucose 77 mg/dL (74-99); Non-African American GFR(CKD) 81 (>60 ml/min/1.73 sqM); Potassium 4.1 mmol/L (3.5-5.1); Sodium 138 mmol/L (137-145)
[2022-02-13] MEDS: HYDROcodone/APAP 7.5-325MG 1 EACH TAB PO PRN ×4 (06:06→23:15)
[2022-02-13 06:15] LABS: Glucose,Whole Blood 145 mg/dL (70-110)
[2022-02-13 06:15] LABS: Glucose,Whole Blood 284 mg/dL (70-110)
[2022-02-13] MEDS: ASPIRIN 81 MG PO SCH (08:13)
[2022-02-13] MEDS: SPIRONOLACTONE 25 MG TAB PO SCH (08:13)
[2022-02-13] MEDS: GABAPENTIN 300 MG CAP PO SCH ×3 (08:13→21:05)
[2022-02-13] MEDS: NICOTINE 14MG/24HR PATCH TRANSDERM SCH (08:13)
[2022-02-13] MEDS: CLOPIDOGREL 75 MG TAB PO SCH (08:13)
[2022-02-13 12:02] VITALS: BMI 21.2
--- NOTE | 2022-02-13 15:24 | CA ---
Transthoracic Echo Report Name: Ana Laura oMrgan Age: 61 Gender: F : 1960 Exam Date: 02/12/2022 13:11 Exam Location: [place] [facility] Ht (in): 62 Wt (lb): 116 Ordering Physician: Luciano Beck MD ([id number]) Attending/Referring Phys: Press Operator Apprentice Sherice Box RDCS Procedure CPT: Indications: stemi Cardiac Hx: Technical Quality: Fair Contrast 1: Total Dose (mL): Contrast 2: Total Dose (mL): MEASUREMENTS (Male / Female) Normal Values 2D ECHO LV Diastolic Diameter PLAX 3.7 cm 4.2 - 5.9 / 3.9 - 5.3 cm LV Systolic Diameter PLAX 2.3 cm IVS Diastolic Thickness 1.1 cm 0.6 - 1.0 / 0.6 - 0.9 cm LVPW Diastolic Thickness 0.9 cm 0.6 - 1.0 / 0.6 - 0.9 cm LV Relative Wall Thickness 0.5 LA Volume 33.3 cm??? 18 - 58 / 22 - 52 cm??? M-MODE Aortic Root Diameter MM 2.9 cm LA Systolic Diameter MM 3.5 cm LA Ao Ratio MM 1.2 DOPPLER AV Peak Velocity 107.4 cm/s AV Peak Gradient 4.6 mmHg LVOT Peak Velocity 77.5 cm/s LVOT Peak Gradient 2.4 mmHg MV Area PHT 3.4 cm??? Mitral E Point Velocity 85.6 cm/s Mitral A Point Velocity 75.5 cm/s Mitral E to A Ratio 1.1 MV Deceleration Time 220.1 ms MV E' Velocity 8.2 cm/s Mitral E to MV E' Ratio 10.5 TR Peak Velocity 152.7 cm/s TR Peak Gradient 9.3 mmHg Right Ventricular Systolic Press 14.3 mmHg FINDINGS Left Ventricle Mildly increased left ventricular wall thickness. Normal left ventricular systolic function with no obvious regional wall motion abnormalities. Left ventricular ejection fraction is estimated at 55 %. Right Ventricle Normal right ventricular size. Right ventricular systolic pressure within normal limits. Right Atrium Normal right atrial size. Left Atrium Normal left atrial size. Mitral Valve Structurally normal mitral valve. No mitral stenosis. No mitral regurgitation. Aortic Valve No aortic valve stenosis or regurgitation. Tricuspid Valve Mild tricuspid regurgitation. Pulmonic Valve Trace pulmonic regurgitation. Pericardium No pericardial effusion. Aorta Normal size aortic root and proximal ascending aorta. CONCLUSIONS Normal LV size and systolic function without segmental wall motion abnormality Previewed by: Dr. Rafael Brody MD (Electronically Signed) Final Date: 13 February 2022 15:23
[2022-02-13] MEDS: ATORVASTATIN 20 MG TAB PO SCH (21:05)
[2022-02-14] MEDS: HYDROcodone/APAP 7.5-325MG 1 EACH TAB PO PRN ×2 (04:34→10:06)
[2022-02-14] MEDS: GABAPENTIN 300 MG CAP PO SCH (08:15)
[2022-02-14] MEDS: SPIRONOLACTONE 25 MG TAB PO SCH (08:15)
[2022-02-14] MEDS: NICOTINE 14MG/24HR PATCH TRANSDERM SCH (08:15)
[2022-02-14] MEDS: CLOPIDOGREL 75 MG TAB PO SCH (08:15)
[2022-02-14] MEDS: ASPIRIN 81 MG PO SCH (08:15)
--- NOTE | 2022-02-14 08:55 | P.DS ---
Providers Date of admission: 02/12/22 07:18 Attending physician: Luciano Beck Consults: 02/12/22 12:12 Consult Physician Routine Consulting Provider: [facility] Consult Reason/Comments: Post Interventional Patient Do you want consulting provider notified?: Already Contacted Primary care physician: Smita Estrada [facility] Course: This is a 61-year-old female patient was coronary artery disease and carotid atherosclerosis as well as hypertension and dyslipidemia who was admitted to the hospital to undergo left carotid stenting from right groin approach. At the beginning of the procedure and the right after obtaining an aortic arch angiogram she crashed on the table. She went into severe bradycardia and then cardiac arrest and upon initiation of CPR for 5 seconds she came back with EKG showing ST segment elevation inferiorly on the monitor on the screen. At that point I did perform an emergent coronary angiogram on her and that revealed an occluded right coronary artery. The etiology of the occlusion is unknown and unlikely to be embolization because the pigtail catheter to perform the carotid angiogram was above the take off of her coronary arteries. Anyway I was able to perform successful stenting of the right coronary artery with an excellent angiographic results and NISHANT 3 flow. Subsequently the patient underwent an echo which revealed preserved left ventricular systolic function with no significant wall motion abnormalities. February [id number] The patient was seen and evaluated this morning. She remains asymptomatic and she remains hemodynamically stable. The patient is going to be discharged home. She will be discharged on dual antiplatelet therapy along with high intensity statin. I had a long discussion with her about the importance of taking her medications regularly. She is in full understanding and agreement. Plan - Discharge Summary Discharge Rx Participant: No New Discharge Prescriptions: New Clopidogrel [Plavix] 75 mg PO DAILY #90 tab Continue Aspirin 81 mg PO DAILY chew lisinopriL [Zestril] 2.5 mg PO HS #30 tab Spironolactone [Aldactone] 25 mg PO DAILY HYDROcodone/APAP 7.5-325MG [[place] 7.5-325] 1 tab PO Q6HR PRN PRN Reason: Pain Gabapentin 600 mg PO TID Changed Rosuvastatin [Crestor] 40 mg PO HS #90 Discharge Medication List Aspirin 81 mg PO DAILY chew 08/14/18 [Rx] lisinopriL [Zestril] 2.5 mg PO HS #30 tab 08/20/18 [Rx] Spironolactone [Aldactone] 25 mg PO DAILY 09/04/18 [History] Gabapentin 600 mg PO TID 02/12/22 [History] HYDROcodone/APAP 7.5-325MG [[place] 7.5-325] 1 tab PO Q6HR PRN 02/12/22 [History] Clopidogrel [Plavix] 75 mg PO DAILY #90 tab 02/14/22 [Rx] Rosuvastatin [Crestor] 40 mg PO HS #90 02/14/22 [Rx] Follow up Appointment(s)/Referral(s): Rafael Brody MD [STAFF PHYSICIAN] - 1 Week
[2022-02-14 09:47] VITALS: BP 89/60; PULSE 66; RESP 14; TEMP 98.5
== END 2022-02-14 12:30 | disposition home or self-care (01) | DRG 981 ==
LOC: 2ORMAIN 07:18 → 2SICU 12:12
PROVIDERS: ADMIT Internal Medicine Interventional Cardiology; ATTEND Internal Medicine Interventional Cardiology
PROC: 5A12012 Performance of Cardiac Output, Single, Manual (ICD-10-PCS; 2022-02-12)
PROC: B2111ZZ Fluoroscopy of Multiple Coronary Arteries using Low Osmolar Contrast (ICD-10-PCS; 2022-02-12)
PROC: 4A023N7 Measurement of Cardiac Sampling and Pressure, Left Heart, Percutaneous Approach (ICD-10-PCS; 2022-02-12)
PROC: B41F1ZZ Fluoroscopy of Right Lower Extremity Arteries using Low Osmolar Contrast (ICD-10-PCS; 2022-02-12)
PROC: B240ZZ3 Ultrasonography of Single Coronary Artery, Intravascular (ICD-10-PCS; 2022-02-12)
PROC: 5A1223Z Performance of Cardiac Pacing, Continuous (ICD-10-PCS; 2022-02-12)
PROC: 027135Z Dilation of Coronary Artery, Two Arteries with Two Drug-eluting Intraluminal Devices, Percutaneous Approach (ICD-10-PCS; principal; 2022-02-12 10:30)
PROC: 02C03ZZ Extirpation of Matter from Coronary Artery, One Artery, Percutaneous Approach (ICD-10-PCS; 2022-02-12 10:30)
DX: I65.22 Occlusion and stenosis of left carotid artery (principal); I21.9 Acute myocardial infarction, unspecified; I46.9 Cardiac arrest, cause unspecified; I10 Essential (primary) hypertension; I07.1 Rheumatic tricuspid insufficiency; R00.1 Bradycardia, unspecified; I25.10 Atherosclerotic heart disease of native coronary artery without angina pectoris; E78.5 Hyperlipidemia, unspecified; Z53.8 Procedure and treatment not carried out for other reasons; Z79.899 Other long term (current) drug therapy; Z79.891 Long term (current) use of opiate analgesic; Z79.82 Long term (current) use of aspirin; Z79.02 Long term (current) use of antithrombotics/antiplatelets; Z91.011 Allergy to milk products; Z87.891 Personal history of nicotine dependence
CPT/HCPCS: 80048; 93306; 93454

== ENCOUNTER 2022-03-05 07:13 | Inpatient (IN) | payer OTHER ==
[2022-03-03 15:36] VITALS: BMI 21.0
[~2022-03-05 07:13] MED LIST changes: +ALPRAZolam 0.25 MG TAB PO PRN; +ASPIRIN 81 MG PO PRN
[2022-03-05] MEDS ORDERED: NICOTINE 21MG/24HR PATCH TRANSDERM STA (07:30)
[2022-03-05] MEDS ORDERED: fentaNYL (PF) 50 MCG/ML 2 ML AMP ONE (08:54)
[2022-03-05] MEDS ORDERED: LIDOCAINE 1% INJ 10MG/ML (30 ML VIAL-PF) SQ ONE ×2 (08:55)
[2022-03-05] MEDS ORDERED: fentaNYL (PF) 50 MCG/ML 2 ML AMP IVP ONE (08:56)
[2022-03-05] MEDS ORDERED: RX INFO: IV CONTRAST WAS GIVEN 1 EACH MISC MISCELLANE PRN (09:00)
[2022-03-05] MEDS ORDERED: HEPARIN SODIUM 1,000 UN/ML (10ML VL) ONE (09:01)
[2022-03-05] MEDS ORDERED: HEPARIN SODIUM 1,000 UN/ML (10ML VL) IVP ONE ×2 (09:03→09:28)
[2022-03-05] MEDS ORDERED: PHENYLEPHRINE-0.9% NACL SYG 1,000 MCG/10 ML SYRINGE IV ONE (09:39)
[2022-03-05] MEDS ORDERED: CLOPIDOGREL 75 MG TAB ONE (09:42)
[2022-03-05] MEDS ORDERED: CLOPIDOGREL 75 MG TAB PO ONE (09:43)
[2022-03-05] MEDS ORDERED: ATROPINE SULFATE 0.1 MG/ML 10ML SYRINGE IV PRN (09:47)
[2022-03-05] MEDS ORDERED: MAG HYDROX/AL HYDROX/SIMETH 30 ML CUP PO PRN (09:47)
--- NOTE | 2022-03-05 09:55 | P.PCN ---
Date of Procedure: 03/05/22 Operative Findings: CAROTID ARTERY INTERVENTION Performing physician Luciano Beck M.D. Procedure performed #1 Successful stenting of the left internal carotid artery using 6-8 mm x 30 mm Xact with adjunctive use of filter wire #2 Selective left common and left internal carotid artery angiogram #3 Intracranial angiogram #4 Ultrasound-guided access of the right common femoral artery #5 Right common femoral artery and Indication This is a pleasant 60-year-old female patient who sees Dr. Brody regularly was diagnosed recently was critical disease involving the left internal carotid artery documented by carotid duplex study and subsequently CTA of the neck. Approach Right common femoral artery Complication None Level of sedation No sedation was given during the procedure. The length of the procedure was 47 minutes Procedure description After obtaining an informed consent the patient was brought to the cardiac r and d lab technician. The right common femoral artery was cannulated using puncture technique under ultrasound guidance, the micropuncture wire passed easily then replace 90 cm 6- Portuguese shuttle sheath in the right common femoral artery over an 035 stiff Glidewire. That point anticoagulation was initiated and the patient was given 4000 use of heparin at the beginning of the procedure with continuous ACT monitoring throughout the procedure. Because we performed recently an aortic arch angiogram on her we did not perform an aortic arch angiogram this time. At that point I did engage the ostial of the left common carotid artery using initially. I did selective the left common carotid artery using a Thrasher catheter. Subsequently I advanced a Glidewire to the left external carotid artery. Subsequently I advanced the sheath over the wire and the catheter to the mid left common carotid artery. Left common and left internal carotid artery angiogram was performed and revealed critical lesion involving the left common carotid artery right after the takeoff from the left common carotid artery. At that point and after prepping the filter wire and that was 7.2 mm Emboshield COBY filter wire I did advance the wire through the lesion in the left common carotid artery and subsequently I deployed the filter under fluoroscopy guidance. Predilatation of the lesion was performed using 4 mm balloon. Subsequently I deployed a 6-8 mm x 30 mm Xact stent under fluoroscopy guidance after the stent was positioned under fluoroscopy guidance. Postdilatation was performed using 5 mm balloon. The following angiogram showed an excellent angiographic results and the procedure was completed without any complication Postprocedure management #1 dual antiplatelet therapy #2 restart the patient back on anticoagulation #3 pulled the sheath from the right groin and manual bleeding control #4 and ICU monitoring #5 follow-up with the patient
[2022-03-05] MEDS ORDERED: IOPAMIDOL-250 100ML BTL INTRAARTER ONE (10:01)
--- NOTE | 2022-03-05 10:08 | IR ---
EXAMINATION TYPE: IR stent intravas non coronary DATE OF EXAM: 03/05/2022 COMPARISON: NONE HISTORY: Fluoroscopy time. Fluoroscopy was provided to the referring clinician.
[2022-03-05] MEDS ORDERED: HYDROmorphone 0.5 MG/0.5 ML SYRINGE IVP STA (13:35)
[2022-03-05] MEDS: HYDROcodone/APAP 7.5-325MG 1 EACH TAB PO PRN ×2 (13:37→20:47)
[2022-03-05] MEDS: GABAPENTIN 300 MG CAP PO SCH ×2 (16:55→20:42)
[2022-03-05] MEDS: SODIUM CHLORIDE 0.9% 1,000 ML IV SCH ×2 (18:46→20:43)
[2022-03-05] MEDS ORDERED: ATORVASTATIN 40 MG TAB PO SCH (21:00)
[2022-03-05] MEDS ORDERED: NON FORMULARY DRUG (Rosuvastatin 10 MG Tablet) PO SCH (21:00)
[2022-03-06] MEDS: HYDROcodone/APAP 7.5-325MG 1 EACH TAB PO PRN ×2 (03:05→09:30)
[2022-03-06] MEDS ORDERED: PANTOPRAZOLE 40 MG TABLET PO SCH (07:30)
[2022-03-06] MEDS: IPRATROPIUM 0.5 MG/2.5 ML NEBU INHALATION SCH ×2 (07:32→11:26)
[2022-03-06] MEDS ORDERED: SYMBICORT 80-4.5 MCG INHALER INHALATION SCH (08:00)
[2022-03-06 08:12] VITALS: RESP 16
[2022-03-06 08:31] LABS: Basophils % (A) 0 %; Eosinophils # (A) 0.3 k/uL (0-0.7); Eosinophils % (A) 5 %; HCT 34.4 % (34.0-46.0); HGB 11.5 gm/dL (11.4-16.0); Lymphocytes # (A) 1.5 k/uL (1.0-4.8); Lymphocytes % (A) 28 %; MCH 30.2 pg (25.0-35.0); MCHC 33.4 g/dL (31.0-37.0); MCV 90.5 fL (80.0-100.0); Mean Platelet Volume 8.2; Monocytes # (A) 0.3 k/uL (0-1.0); Monocytes % (A) 6 %; Neutrophils # (A) 3.2 k/uL (1.3-7.7); Neutrophils % (A) 58 %; Platelet Count 188 k/uL (150-450); RDW 13.1 % (11.5-15.5); WBC 5.5 k/uL (3.8-10.6)
[2022-03-06 08:39] LABS: Calcium 8.5 mg/dL (8.4-10.2); Potassium 4.3 mmol/L (3.5-5.1)
[2022-03-06] MEDS ORDERED: SPIRONOLACTONE 25 MG TAB PO SCH (09:00)
[2022-03-06] MEDS ORDERED: ASPIRIN 81 MG PO SCH (09:00)
[2022-03-06] MEDS ORDERED: CLOPIDOGREL 75 MG TAB PO SCH ×2 (09:00)
[2022-03-06] MEDS: GABAPENTIN 300 MG CAP PO SCH (09:29)
[2022-03-06 11:57] VITALS: BP 124/69; PULSE 58; TEMP 97.8
--- NOTE | 2022-03-06 12:18 | P.DS ---
Providers Date of admission: 03/05/22 07:13 Attending physician: Luciano Beck Primary care physician: Smita [facility] Course: The patient is a pleasant 61-year-old female patient who underwent yesterday successful stenting of the left internal carotid artery with a grade angiographic results from right groin approach. The patient was seen this morning that she is asymptomatic. The right groin is soft and nontender and with no bruises. The patient is going to discharge home on dual antiplatelet therapy and statin and she'll follow-up in a week with Dr. Brody Plan - Discharge Summary Discharge Rx Participant: Yes New Discharge Prescriptions: Continue Aspirin 81 mg PO DAILY chew lisinopriL [Zestril] 2.5 mg PO HS #30 tab Spironolactone [Aldactone] 25 mg PO DAILY HYDROcodone/APAP 7.5-325MG [[place] 7.5-325] 1 tab PO Q6HR PRN PRN Reason: Pain Rosuvastatin [Crestor] 40 mg PO HS #90 Clopidogrel [Plavix] 75 mg PO DAILY #90 tab Gabapentin [Neurontin] 300 mg PO TID Lansoprazole [Prevacid] 30 mg PO DAILY Fluticasone/Umeclidin/Vilanter [Trelegy Ellipta 100-62.5-25] 1 inhalation INHALATION DAILY Discharge Medication List Aspirin 81 mg PO DAILY chew 08/14/18 [Rx] lisinopriL [Zestril] 2.5 mg PO HS #30 tab 08/20/18 [Rx] Spironolactone [Aldactone] 25 mg PO DAILY 09/04/18 [History] HYDROcodone/APAP 7.5-325MG [[place] 7.5-325] 1 tab PO Q6HR PRN 02/12/22 [History] Clopidogrel [Plavix] 75 mg PO DAILY #90 tab 02/14/22 [Rx] Rosuvastatin [Crestor] 40 mg PO HS #90 02/14/22 [Rx] Fluticasone/Umeclidin/Vilanter [Trelegy Ellipta 100-62.5-25] 1 inhalation INHALATION DAILY 03/03/22 [History] Gabapentin [Neurontin] 300 mg PO TID 03/03/22 [History] Lansoprazole [Prevacid] 30 mg PO DAILY 03/03/22 [History] Follow up Appointment(s)/Referral(s): Rafael Brody MD [STAFF PHYSICIAN] - 03/11/22 10:00 am (Your recheck appt is with Becki Gerard NP.) Patient Instructions/Handouts: Carotid Artery Stent Placement (DC)
== END 2022-03-06 12:50 | disposition home or self-care (01) | DRG 35 ==
LOC: 2ORMAIN 07:13 → 3SCARD 13:19
PROVIDERS: ADMIT Internal Medicine Interventional Cardiology; ATTEND Internal Medicine Interventional Cardiology
DX: I65.23 Occlusion and stenosis of bilateral carotid arteries (principal); I47.20 Ventricular tachycardia, unspecified; E78.5 Hyperlipidemia, unspecified; I25.5 Ischemic cardiomyopathy; I07.1 Rheumatic tricuspid insufficiency; I25.10 Atherosclerotic heart disease of native coronary artery without angina pectoris; I25.2 Old myocardial infarction; F17.210 Nicotine dependence, cigarettes, uncomplicated; Z79.1 Long term (current) use of non-steroidal anti-inflammatories (NSAID); Z79.02 Long term (current) use of antithrombotics/antiplatelets; Z79.82 Long term (current) use of aspirin; Z79.51 Long term (current) use of inhaled steroids; Z79.891 Long term (current) use of opiate analgesic; Z79.899 Other long term (current) drug therapy; Z86.74 Personal history of sudden cardiac arrest; Z95.5 Presence of coronary angioplasty implant and graft
CPT/HCPCS: 37215; 80048; 85025; 86850; 86900; 86901; 94640

== ENCOUNTER 2022-11-14 19:09 | Emergency (ER) | payer OTHER ==
[2022-11-14 19:15] VITALS: TEMP 98.2
[2022-11-14 20:25] VITALS: RESP 18
--- NOTE | 2022-11-14 21:38 | XR ---
EXAMINATION TYPE: XR tibia fibula RT DATE OF EXAM: 11/14/2022 9:12 PM INDICATION: Patient age:Female; 62 years old; Reason for study: r/o osteo/nec fasc; [facility]. COMPARISON: None TECHNIQUE: The right tibia/fibula was examined in AP and lateral projections. FINDINGS: No evidence of any acute osseous pathology, joint dislocation, or soft tissue swelling is n oted. No radiopaque foreign body. No evidence for osseous erosion to suggest osteolytic myelitis. No subcutaneous gas. IMPRESSION: 1. No evidence of acute fracture. 2. No radiopaque foreign body. 3. No evidence for osseous erosion to suggest osteolytic myelitis. 4. No subcutaneous gas to suggest abscess.
[2022-11-14] MEDS ORDERED: DIPH,PERTUS(ACELL)TETVAC-LF 0.5 ML VIAL IM ONE (21:45)
--- NOTE | 2022-11-14 21:47 | ED ---
Animal Bite HPI - General Chief Complaint: Animal Bite Stated Complaint: Cat Bite Time Seen by Provider: 11/14/22 20:21 Source: patient, family Mode of arrival: wheelchair Limitations: no limitations - History of Present Illness Initial Comments: 82-year-old female presents to the ED with a chief complaint of leg wound. Patient states 2 weeks ago was bit by her cat on her right lower leg. Is not vaccinated for rabies however is acting its normal self. Since then states that she has developed swelling redness and pain around the bites. Secondary to the pain has had some difficulty walking. Denies fever. No other complaints. - Related Data Home Medications Medication Instructions Recorded Confirmed Spironolactone [Aldactone] 25 mg PO DAILY 09/04/18 03/05/22 HYDROcodone/APAP 7.5-325MG [Bricelyn 1 tab PO Q6HR PRN 02/12/22 03/05/22 7.5-325] Fluticasone/Umeclidin/Vilanter 1 inhalation INHALATION DAILY 03/03/22 03/05/22 [Trelegy Ellipta 100-62.5-25] Gabapentin [Neurontin] 300 mg PO TID 03/03/22 03/05/22 Lansoprazole [Prevacid] 30 mg PO DAILY 03/03/22 03/05/22 Previous Rx's Medication Instructions Recorded Aspirin 81 mg PO DAILY chew 08/14/18 lisinopriL [Zestril] 2.5 mg PO HS #30 tab 08/20/18 Clopidogrel [Plavix] 75 mg PO DAILY #90 tab 02/14/22 Rosuvastatin [Crestor] 40 mg PO HS #90 02/14/22 Allergies Allergy/AdvReac Type Severity Reaction Status Date / Time lactose AdvReac Nausea & Verified 03/03/22 15:20 Vomiting & Diarrhea Review of Systems ROS Statement: Those systems with pertinent positive or pertinent negative responses have been documented in the HPI. ROS Other: All systems not noted in ROS Statement are negative. Past Medical History Past Medical History: Hypertension, Myocardial Infarction (NC), Thyroid Disorder Additional Past Medical History / Comment(s): Hepatitis C, chronic back pain. SEE DR[facility] FOR CARDIAC HX Last Myocardial Infarction Date:: 08/11/18, 02/12/22 History of Any Multi-Drug Resistant Organisms: None Reported Past Surgical History: Heart Catheterization With Stent, Hysterectomy, Tonsillectomy Additional Past Surgical History / Comment(s): liver biopsy. COLONOSCOPY. Stent mid RCA on 08/12 Past Anesthesia/Blood Transfusion Reactions: No Reported Reaction Date of Last Stent Placement:: 08/12/2018, 02/12/22 X2 Past Psychological History: Anxiety, Depression Smoking Status: Current every day smoker - Past Family History Father Family Medical History: Deep Vein Thrombosis (DVT) General Exam Limitations: no limitations Head exam: Present: atraumatic Respiratory exam: Present: normal lung sounds bilaterally Cardiovascular Exam: Present: regular rate, normal rhythm GI/Abdominal exam: Present: soft Extremities exam: Present: other (Strength and sensation equal and intact in bilateral lower extremities) Neurological exam: Present: alert, oriented X3 Psychiatric exam: Present: normal affect, normal mood Skin exam: Present: other (Approximately 6 x 8 cm area of warmth, erythema, edema, and tenderness to palpation on the right posterior lower leg.) Course Vital Signs 11/14/22 11/14/22 19:11 20:19 Temperature 98.2 F Pulse Rate 88 75 Respiratory 20 18 Rate Blood Pressure 104/57 99/81 O2 Sat by Pulse 95 92 L Oximetry Medical Decision Making - Medical Decision Making Was pt. sent in by a medical professional or institution (, PA, [employer], urgent care, hospital, or fci...) When possible be specific @ -No Did you speak to anyone other than the patient for history (EMS, parent, family, police, friend...)? What history was obtained from this source @ -No Did you review nursing and triage notes (agree or disagree)? Why? @ -I reviewed and agree with nursing and triage notes Were old charts reviewed (outside hosp., previous admission, EMS record, old EKG, old radiological studies, urgent care reports/EKG's, fci records)? Report findings @ -No old charts were reviewed Differential Diagnosis (chest pain, altered mental status, abdominal pain women, abdominal pain men, vaginal bleeding, weakness, fever, dyspnea, syncope, headache, dizziness, GI bleed, back pain, seizure, CVA, palpatations, mental health, musculoskeletal)? @ -Cellulitis, MRSA, osteomyelitis, necrotizing fasciitis. This is not meant to be an all-inclusive list. EKG interpreted by me (3pts min.). @ -None X-rays interpreted by me (1pt min.). @ -X-ray showed no evidence of osteomyelitis or free air. CT interpreted by me (1pt min.). @ -None done U/S interpreted by me (1pt. min.). @ -None done What testing was considered but not performed or refused? (CT, X-rays, U/S, labs)? Why? @ -None What meds were considered but not given or refused? Why? @ -None Did you discuss the management of the patient with other professionals (professionals i.e. , PA, [employer], lab, RT, psych nurse, social media manager, floral designer salesperson, teacher, national insurance officer, community case manager)? Give summary @ -No Was smoking cessation discussed for >3mins.? @ -No Was critical care preformed (if so, how long)? @ -No Were there social determinants of health that impacted care today? How? (Homelessness, low income, unemployed, alcoholism, drug addiction, transportation, low edu. Level, literacy, decrease access to med. care, fci, rehab)? @ -No Was there de-escalation of care discussed even if they declined (Discuss DNR or withdrawal of care, Hospice)? DNR status @ -No What co-morbidities impacted this encounter? (DM, HTN, Smoking, COPD, CAD, Cancer, CVA, ARF, Chemo, Hep., AIDS, mental health diagnosis, sleep apnea, mor bid obesity)? @ -None Was patient admitted / discharged? Hospital course, mention meds given and route, prescriptions, significant lab abnormalities, going to OR and other pertinent info. @ -Discharge. Imaging shows no findings of osteomyelitis or free air. Patient does have elevated white count and CRP consistent with infection. Patient will be started on Augmentin. Tetanus updated. Patient had improvement of pain with Toradol in the ED. At time of discharge, vital signs stable afebrile. Discussed return precautions patient verbalizes agreement. Undiagnosed new problem with uncertain prognosis? @ -No Drug Therapy requiring intensive monitoring for toxicity (Heparin, Nitro, Insulin, Cardizem)? @ -No Were any procedures done? @ -No Diagnosis/symptom? @ -Cellulitis Acute, or Chronic, or Acute on Chronic? @ -Acute Uncomplicated (without systemic symptoms) or Complicated (systemic symptoms)? @ -Uncomplicated Side effects of treatment? @ -No Exacerbation, Progression, or Severe Exacerbation? @ -No Poses a threat to life or bodily function? How? (Chest pain, USA, NC, pneumonia, PE, COPD, DKA, ARF, appy, cholecystitis, CVA, Diverticulitis, Homicidal, Suicidal, threat to staff... and all critical care pts) @ -No - Lab Data Result diagrams: 11/14/22 21:04 Lab Results 11/14/22 11/14/22 11/14/22 Range/Units 21:04 21:04 21:04 WBC 13.3 H (3.8-10.6) k/uL RBC 4.33 (3.80-5.40) m/uL Hgb 13.3 (11.4-16.0) gm/dL Hct 38.7 (34.0-46.0) % MCV 89.5 (80.0-100.0) fL MCH 30.7 (25.0-35.0) pg MCHC 34.3 (31.0-37.0) g/dL RDW 13.3 (11.5-15.5) % Plt Count 187 (150-450) k/uL MPV 7.7 Neutrophils % 74 % Lymphocytes % 15 % Monocytes % 8 % Eosinophils % 1 % Basophils % 0 % Neutrophils # 9.9 H (1.3-7.7) k/uL Lymphocytes # 2.0 (1.0-4.8) k/uL Monocytes # 1.1 H (0-1.0) k/uL Eosinophils # 0.1 (0-0.7) k/uL Basophils # 0.0 (0-0.2) k/uL Plasma Lactic Acid Rudolph 0.8 (0.7-2.0) mmol/L C-Reactive Protein 15.8 H (<1.0) mg/dL Disposition Clinical Impression: Cellulitis Disposition: HOME SELF-CARE Condition: Good Instructions (If sedation given, give patient instructions): Animal Bite (ED), Cellulitis (ED) Is patient prescribed a controlled substance at d/c from ED?: No Referrals: Smita Estrada DO [Primary Care Provider] - 1-2 days Time of Disposition: 22:09
[2022-11-14] MEDS ORDERED: KETOROLAC 15 MG/ML 1 ML VIAL IVP STA (21:48)
[2022-11-14 21:58] LABS: Basophils % (A) 0 %; Eosinophils # (A) 0.1 k/uL (0-0.7); Eosinophils % (A) 1 %; HCT 38.7 % (34.0-46.0); HGB 13.3 gm/dL (11.4-16.0); Lymphocytes % (A) 15 %; MCH 30.7 pg (25.0-35.0); MCHC 34.3 g/dL (31.0-37.0); MCV 89.5 fL (80.0-100.0); Mean Platelet Volume 7.7; Monocytes # (A) 1.1 k/uL (0-1.0); Monocytes % (A) 8 %; Neutrophils # (A) 9.9 k/uL (1.3-7.7); Neutrophils % (A) 74 %; Platelet Count 187 k/uL (150-450); RBC 4.33 m/uL (3.80-5.40); RDW 13.3 % (11.5-15.5); WBC 13.3 k/uL (3.8-10.6)
[2022-11-14] MEDS ORDERED: AMOXIC-POT CLAV 875MG STARTER PACK 2 TAB BTL PO STA (22:09)
[2022-11-14 22:18] VITALS: BP 100/85; PULSE 76
[2022-11-15] MEDS ORDERED: KETOROLAC 15 MG/ML 1 ML VIAL IVP SCH
== END 2022-11-14 22:21 | disposition home or self-care (01) ==
LOC: EC 19:09
DX: L03.115 Cellulitis of right lower limb (principal); I10 Essential (primary) hypertension; I25.2 Old myocardial infarction; F17.200 Nicotine dependence, unspecified, uncomplicated; Z91.011 Allergy to milk products; Z86.59 Personal history of other mental and behavioral disorders
CPT/HCPCS: 36415; 83605; 85025; 86140; 73590; 90715; 99283; 90471; 96374; J1885

== ENCOUNTER → 2023-03-04 | Outpatient (CLI) | payer OTHER ==
[2023-03-05 01:54] LABS: Aspergillus fumagatus IgE <0.10 kU/L; Birch IgE <0.10 kU/L; Cat Epith & Dander IgE <0.10 kU/L; Cladosporian herbarum IgE <0.10 kU/L
[2023-03-05 01:55] LABS: Dermato. farinae IgE <0.10 kU/L; Dog Dander IgE <0.10 kU/L; Elm IgE <0.10 kU/L; Oak IgE <0.10 kU/L; Ragweed,Common IgE <0.10 kU/L
[2023-03-05 13:48] LABS: Bermuda Grass IgE <0.10 kU/L (<0.10); House Dust (H-S) IgE <0.10 kU/L (<0.10); House Dust (H-S) IgE Class CLASS 0; Meadow Fescue IgE <0.10 kU/L (<0.10); Meadow Fescue IgE Class CLASS 0; Pecan IgE <0.10 kU/L (<0.10); Pecan IgE Class CLASS 0; Timothy Grass IgE <0.10 kU/L (<0.10); Timothy Grass IgE Class CLASS 0
[2023-03-05 13:49] LABS: Alt. alternata IgE Class CLASS 0; Alternaria alternata IgE <0.10 kU/L (<0.10); Cottonwood IgE <0.10 kU/L (<0.10); Lamb's Quarter IgE <0.10 kU/L (<0.10); Lamb's Quarter IgE Class CLASS 0; Meadow Grs (KY blue) IgE <0.10 kU/L (<0.10); Meadow Grs (KY blue) IgE Class CLASS 0; Penicillium notatum IgE Class CLASS 0; Sycamore(Mpl.Lf) IgE <0.10 kU/L (<0.10); Sycamore(Mpl.Lf) IgE Class CLASS 0; Willow Tree IgE <0.10 kU/L (<0.10); Willow Tree IgE Class CLASS 0
[2023-03-05 13:50] LABS: Beech IgE <0.10 kU/L (<0.10); Beech IgE Class CLASS 0; English Plantain IgE Class CLASS 0; Goldenrod IgE <0.10 kU/L (<0.10); Goldenrod IgE Class CLASS 0; Ragweed, Giant IgE <0.10 kU/L (<0.10); Ragweed, Giant IgE Class CLASS 0; Sheep Sorrel IgE <0.10 kU/L (<0.10); Sheep Sorrel IgE Class CLASS 0
== END | disposition home or self-care (01) ==
LOC: LABWHC1 14:22
PROVIDERS: ATTEND Internal Medicine
DX: J31.0 Chronic rhinitis (principal)
CPT/HCPCS: 36415; 86003

== ENCOUNTER → 2024-08-01 | Outpatient (CLI) | payer MEDICARE, OTHER ==
[2024-08-01 18:47] LABS: Basophils # (A) 0.03 X 10*3/uL (0.00-0.10); Basophils % (A) 0.4 %; Eosinophils # (A) 0.18 X 10*3/uL (0.04-0.35); Eosinophils % (A) 2.5 %; HCT 43.7 % (37.2-46.3); HGB 14.3 g/dL (12.0-15.0); Lymphocytes # (A) 2.31 X 10*3/uL (0.90-5.00); MCH 30.4 pg (27.0-32.0); MCHC 32.7 g/dL (32.0-37.0); MCV 92.8 FL (80.0-97.0); Mean Platelet Volume 10.1 FL (9.5-12.2); Monocytes # (A) 0.61 X 10*3/uL (0.20-1.00); Monocytes % (A) 8.4 %; NRBC Per 100 WBC 0 X 10*3/uL (0.00-0.01); Neutrophils # (A) 4.08 X 10*3/uL (1.80-7.70); Neutrophils % (A) 56.4 %; Platelet Count 195 X 10*3/uL (140-440); RBC 4.71 X 10*6/uL (4.10-5.20); RDW 14.2 % (11.5-14.5); WBC 7.23 X 10*3/uL (4.50-10.00)
[2024-08-01 19:18] LABS: ALT 17 U/L (8-44); AST 23 U/L (13-35); Albumin 4.5 g/dL (3.8-4.9); Albumin/Globulin Ratio 2.37 Ratio (1.60-3.17); Alkaline Phosphatase 50 U/L (41-126); BUN/Creat Ratio 13.88 Ratio (12.00-20.00); Blood Urea Nitrogen 11.1 mg/dL (9.0-27.0); Calcium 9.4 mg/dL (8.7-10.3); Carbon Dioxide 24.8 mmol/L (21.6-31.8); Chloride 101 mmol/L (96-109); Globulin 1.9 g/dL (1.6-3.3); Glucose 79 mg/dL (70-110); Potassium 4.1 mmol/L (3.5-5.5); Sodium 140 mmol/L (135-145); Total Bilirubin 0.2 mg/dL (0.3-1.2); Total Protein 6.4 g/dL (6.2-8.2)
== END | disposition home or self-care (01) ==
LOC: LABWHC1 13:34
PROVIDERS: ATTEND Internal Medicine Gastroenterology
DX: R10.13 Epigastric pain (principal)
CPT/HCPCS: 36415; 80053; 85025

== ENCOUNTER → 2024-08-01 | Outpatient (CLI) | payer MEDICARE, OTHER ==
--- NOTE | 2024-08-02 06:27 | MM ---
Reason for Exam: Screening (asymptomatic). Last mammogram was performed 11 year(s) and 9 month(s) ago. Patient History: Menarche at age 10. First Full-Term at age 19. Hysterectomy at age 35. Postmenopausal. Risk Values: Torri 5 year model risk: 1.5%. NCI Lifetime model risk: 5.6%. Prior Study Comparison: 11/01/2012 Bilateral Diagnostic Mammogram, [facility]. Tissue Density: The breasts are heterogeneously dense, which may obscure small masses. Findings: Analyzed By CAD. Several tiny benign-appearing round calcifications bilaterally are present. Benign-appearing left axillary lymph nodes are seen. There is no suspicious new group of microcalcifications or new suspicious mass in either breast. Overall Assessment: Benign, BI-RAD 2 Management: Screening Mammogram of both breasts in 1 year. Some advise annual breast ultrasound surveillance in patients with background dense tissue. Patient should continue monthly self-breast exams. A clinical breast exam by your physician is recommended on an annual basis. This exam should not preclude additional follow-up of suspicious palpable abnormalities. Note on Torri scores and lifetime risk: 1. A Torri score greater than 3% is considered moderate risk. If this is the case, consider specialist referral to assess eligibility for a risk reducing agent. 2. If overall lifetime risk for the development of breast cancer is 20% or higher, the patient may qualify for future screening with alternating mammogram and breast MRI. [facility], , 08/02/2024 6:24 AM. Electronically signed and approved by: Rogerio Gannon M.D.
== END | disposition home or self-care (01) ==
LOC: RADMAMWWP 13:08
PROVIDERS: ATTEND Family Medicine
DX: Z12.31 Encounter for screening mammogram for malignant neoplasm of breast (principal); R92.333 Mammographic heterogeneous density, bilateral breasts; R92.1 Mammographic calcification found on diagnostic imaging of breast; Z78.0 Asymptomatic menopausal state
CPT/HCPCS: 77063; 77067

== ENCOUNTER → 2024-08-12 | Outpatient (CLI) | payer MEDICARE, OTHER ==
--- NOTE | 2024-08-12 11:39 | FL ---
EXAMINATION TYPE: FL barium swallow DATE OF EXAM: 08/12/2024 9:03 AM COMPARISON: None. CLINICAL INDICATION: Female, 63 years old with history of R13.12 DYSPH Z12.2 F17.210 Z12.31 R79.89, D ysphagia TECHNIQUE: Esophagram was performed per the air contrast technique. The patient swallowed barium and effervescent crystals without difficulty or delay. FINDINGS: Esophageal peristalsis and motility appear to be within normal limits. There is no evidence for filling defect, mass or diverticulum. Very small reducible sliding type hiatal hernia noted. Subsequently single contrast cervical esophagram was performed which fails demonstrate evidence for a spiration penetration or mass. IMPRESSION: Very small reducible sliding type hiatal hernia noted. [facility], , 08/12/2024 11:37 AM
--- NOTE | 2024-08-13 11:29 | CTL ---
EXAMINATION TYPE: CT Low Dose Lung DATE OF EXAM: 08/12/2024 8:36 AM COMPARISON: None. SCREENING VISIT: Initial CT DIAGNOSTIC QUALITY: Satisfactory CLINICAL INDICATION: Female, 63 years old with history of R13.12 DYSPH Z12.2 F17.210 Z12.31 R79.89, D yspnea and cough., Lung cancer screening, History of tobacco use. TECHNIQUE: Low dose computed tomography scan was performed through the chest at 1 mm thick sections a nd reconstructed images in the coronal plane at 1 mm thick sections. Contrast used: mL of , (none if empty) Oral contrast used: (none if empty) CT DLP: 52.5 mGycm, Automated exposure control for dose reduction was used. CT CTDI: 1.4 mGy, Automated exposure control for dose reduction was used. FINDINGS: LUNG NODULES: None. LUNGS: COPD: Severity: Moderate Fibrosis: Severity: None Lymph nodes: None Other findings: None RIGHT PLEURAL SPACE: Effusion: None Calcification: None Thickening: None Pneumothorax: None LEFT PLEURAL SPACE: Effusion: None Calcification: None Thickening: None Pneumothorax: None HEART: Other: Ascending thoracic aorta at the level the main pulmonary artery measures 3.2 cm. The main pul monary artery at the bifurcation measures 2.3 cm. Heart Size: Normal Coronary calcification: Moderate coronary artery calcifications present. Pericardial effusion: None OTHER FINDINGS: Upper abdomen: Normal Bony thorax: Normal Supraclavicular region: Normal IMPRESSION: No suspicious changes for primary metastatic neoplasm FOLLOW UP CT CHEST RECOMMENDATION: Follow-up low-dose CT chest one year CT LUNG RAD: Lung-Rad 1 Negative [facility], Workstation: [email or web address], 08/13/2024 11:27 AM
== END | disposition home or self-care (01) ==
LOC: RADCTMAIN 08:01
PROVIDERS: ATTEND Family Medicine
DX: Z12.2 Encounter for screening for malignant neoplasm of respiratory organs (principal); R13.12 Dysphagia, oropharyngeal phase; F17.210 Nicotine dependence, cigarettes, uncomplicated; J44.9 Chronic obstructive pulmonary disease, unspecified; K44.9 Diaphragmatic hernia without obstruction or gangrene
CPT/HCPCS: 71271; 74220

== ENCOUNTER → 2024-08-15 | Outpatient (CLI) | payer MEDICARE, OTHER ==
--- NOTE | 2024-08-15 14:09 | US ---
EXAMINATION TYPE: US thyroid st tissue head/neck DATE OF EXAM: 08/15/2024 COMPARISON: NONE CLINICAL INDICATION: Female, 63 years old with history of R7989 ABN THYROID; abnormal thyroid labs TECHNIQUE: Grayscale and color Doppler imaging of the thyroid gland. FINDINGS: GLAND SIZE: Right Lobe: 4.6 x 1.6 x 1.8 cm Overall Parenchyma: homogeneous Left Lobe: 4.0 x 1.0 x 1.2 cm Overall Parenchyma: homogeneous Isthmus Thickness: 0.3 cm NODULES RIGHT: # of nodules measured on right: 2 1. 0.9 X 0.6 x 0.7 cm, mid mid, solid or almost completely solid, hypoechoic nodule, which is wider than tall, with smooth margins, without echogenic foci. Prior size: no prior 2. 0.8 X 0.6 x 0.8 cm, mid lateral, mixed cystic and solid, hypoechoic nodule, which is wider than tall, with smooth margins, without echogenic foci. Prior size: no prior LEFT: # of nodules measured on left: 1 1. 1.0 X 0.7 x 0.7 cm, upper , solid or almost completely solid, hypoechoic nodule, which is wider than tall, with smooth margins, without echogenic foci. Prior size: no prior ISTHMUS: # of nodules measured in the isthmus: 0 Bilateral neck scanned, no evidence of lymphadenopathy. IMPRESSION: TR4:Left-sided thyroid nodule If nodule size is ? 1.5 cm, FNA is recommended. If nodule size is ? 1.0 cm, follow-up imaging at 1, 2, 3, and 5 years is recommended. Highest TI-RADS level nodule reported: 2017 ACR TI-RADS LEVEL: TR4 TI-RADS assessment score and recommendation for follow-up based on appropriate scoring and treatment protocols. TR3: If nodule size is ? 2.5 cm, FNA is recommended. If nodule size is ? 1.5 cm, follow-up imaging at 1, 3, and 5 years is recommended. TR4: If nodule size is ? 1.5 cm, FNA is recommended. If nodule size is ? 1.0 cm, follow-up imaging at 1, 2, 3, and 5 years is recommended. TR5: If nodule size is ? 1.0 cm, FNA is recommended. If nodule size is ? 0.5 cm, annual follow-up for up to 5 years is recommended. [email or web address] [facility], , 08/15/2024 2:07 PM
== END | disposition home or self-care (01) ==
LOC: RADUSWWP 13:17
PROVIDERS: ATTEND Family Medicine
DX: E04.2 Nontoxic multinodular goiter (principal); R79.89 Other specified abnormal findings of blood chemistry
CPT/HCPCS: 76536

== ENCOUNTER → 2024-08-23 | Outpatient (CLI) | payer MEDICARE, OTHER ==
--- NOTE | 2024-08-23 08:43 | MR ---
EXAMINATION TYPE: MR liver wo/w con and mrcp DATE OF EXAM: 08/23/2024 8:21 AM INDICATION: Patient age:Female; 63 years old; Reason for study: K83.8 OTHER SPECIFIED DISEASES OF BILIARY TRACT; PHH. COMPARISON: CT abdomen and pelvis 11/17/2020, 11/30/2017, 11/16/2014, CT chest abdomen pelvis 11/30/2017, MR MRCP 04/02/2015 TECHNIQUE: Multiplanar multisequence MR imaging of the abdomen was performed both before and after t he intravenous administration of 5 mL Gadobutrol . MRCP protocol was utilized. Maximum intensity proj ection and 3-D images were reconstructed of the biliary tree at a separate independent workstation. P ost IV contrast subtraction images were also submitted for review. FINDINGS: Motion degraded examination. LUNG BASES: Elevation of the right hemidiaphragm. Right lower lobe and lingular linear subsegmental a telectasis. ABDOMEN: LIVER: Normal morphology. No significant difference of hepatic signal intensity between in and out of phase images. There is no focal hepatic parenchymal abnormality. BILE DUCTS: Common bile duct measures up to 11 mm at the pancreatic head. Previously measured up to 7 mm before cholecystectomy. There is ductal dilatation of the common hepatic duct measuring up to 18 mm. Previously measured 12 mm before cholecystectomy. Mild central intrahepatic biliary ductal dilata tion. There is no filling defect, stricture, obstructing lesion or biliary wall thickening identified . GALLBLADDER: The gallbladder is surgical absent PANCREAS: Unremarkable. Normal caliber pancreatic duct. SPLEEN: Within normal limits. Incidental splenule located anteriorly to the spleen. ADRENAL GLANDS: Unremarkable. KIDNEYS: Couple of tiny punctate thinwall T2 hyperintense nonenhancing cysts within both kidneys. No follow-up recommended. No hydronephrosis. BOWEL: Normal caliber. Scattered colonic diverticula without evidence for acute diverticulitis. PERITONEUM: No ascites or free air. No fluid collection. VASCULATURE: No abdominal aortic aneurysm. Major abdominal veins are patent. RETROPERITONEUM: Within normal limits. LYMPH NODES: Within normal limits. ABDOMINAL WALL: Unremarkable. MUSCULOSKELETAL: No suspicious osseous abnormality. OTHER: Uterus is surgically absent. Follicular changes identified within both ovaries. IMPRESSION: Intra and extra hepatic biliary ductal dilatation without evidence of stricture, filling defect, wall thickening or obstructing mass lesion. May be related to postcholecystectomy physiologically. [facility], , 08/23/2024 8:41 AM
== END | disposition home or self-care (01) ==
LOC: RADMRIMAIN 06:47
PROVIDERS: ATTEND Internal Medicine Gastroenterology
DX: K83.8 Other specified diseases of biliary tract (principal); K76.9 Liver disease, unspecified
CPT/HCPCS: 74183; A9585

== ENCOUNTER 2024-10-18 10:57 | Day surgery (SDC) | payer MEDICARE, OTHER ==
[2024-10-18] MEDS ORDERED: ONDANSETRON 4 MG/2 ML VIAL IVP PRN (12:05)
[2024-10-18] MEDS ORDERED: LIDOCAINE 1% (10MG/ML) FOR IV START INTRADERMA PRN (12:05)
[2024-10-18] MEDS: IV FLUID CONTINUATION 1,000 ML IV ONE ×2 (12:18→13:09)
[2024-10-18 12:19] VITALS: TEMP 97.1
[2024-10-18] MEDS: LACTATED RINGERS 1,000 ML IV SCH (12:27)
[2024-10-18] MEDS ORDERED: PROPOFOL 10 MG/ML 20 ML VIAL IV ONE (12:44)
--- NOTE | 2024-10-18 13:06 | P.PCN ---
Date of Procedure: 10/18/24 Procedure(s) Performed: BRIEF HISTORY: Patient is a 63-year-old pleasant white female scheduled for an elective colonoscopy as a part of evaluation of change in bowel habits PROCEDURE PERFORMED: Colonoscopy. PREOPERATIVE DIAGNOSIS: Change in bowel habits. IV sedation per Anesthesia. PROCEDURE: After informed consent was obtained, the patient, was brought into the endoscopy unit. IV sedation was administered by Anesthesia under continuous monitoring. Digital rectal examination was normal. Initially the Olympus CF-160 flexible video pediatric colonoscope was then inserted in the rectum, gradually advanced into the cecum with mild to moderate difficulty. Careful examination was performed as the scope was gradually being withdrawn. Ileocecal valve and the appendiceal orifice were visualized and appeared normal. Prep was excellent. Mucosa of the cecum, ascending colon, transverse colon, descending colon, sigmoid colon, and rectum appeared normal. Sigmoid diverticulosis. Retroflexion was performed in the rectum and no lesions were seen. The patient tolerated the procedure well. IMPRESSION: Normal-appearing colon from rectum to cecum with no evidence of colorectal neoplasia. Scattered sigmoid diverticulosis.. RECOMMENDATIONS: Findings of this examination were discussed with the patient as well as her family. She was advised to be on a high-fiber diet and take fiber supplements on a regular basis. Recommended repeat screening colonoscopy in 10 years..
[2024-10-18 13:26] VITALS: BP 124/71; PULSE 68; RESP 18
== END 2024-10-18 13:43 | disposition home or self-care (01) ==
LOC: ORWHC2ENDO 10:57
PROVIDERS: ATTEND Internal Medicine Gastroenterology
DX: K57.30 Diverticulosis of large intestine without perforation or abscess without bleeding (principal); I10 Essential (primary) hypertension; E78.5 Hyperlipidemia, unspecified; J44.9 Chronic obstructive pulmonary disease, unspecified; I25.2 Old myocardial infarction; F17.210 Nicotine dependence, cigarettes, uncomplicated; Z79.02 Long term (current) use of antithrombotics/antiplatelets; Z79.899 Other long term (current) drug therapy; Z91.011 Allergy to milk products
CPT/HCPCS: 45378; J2704